=== PATIENT | female | born 1985 | race Caucasian/White ===

== ENCOUNTER 2016-09-06 10:15 | Outpatient (RCR) | payer OTHER ==
[~2016-09-06 10:15] MED LIST: /ONDA4TA PO; /PANT40TA PO; ATIV2TAB PO; BACIOIN5 TOP; BACITAB3 PO; BACT800T5 PO; BENT10CA PO; CEFD1CAP8 PO; CIPR500T89 PO; CLEO300C2 PO; CLOT7CR PV; CONC54TA2 PO; DOXY150C PO; EFFE150C PO; EFFE75CA75 PO; EFFEXOR PO; EFFEXOR XR PO; FOLI1TAB2 PO; IMODIUM PO; LACTSOL16 PO; LITH300C PO; LITHIUM CARBONATE PO; MACR100C3 PO; METH10CO PO; MULTCAP PO; NEUR100C PO; NEUR300C PO; NICO21DI4; NO HISTORICAL MEDS; NO HOME MEDICATIONS; OXYC30TA4 PO; PERC5TAB6 PO; PERCOCET PO; PROP10TA8 PO; ROBA500T PO; TEGR200T PO; TRAZ150T PO; TRAZ150T14 PO; TRAZ50TA4 PO; TYLE167L PO; TYLE325T5 PO; TYLE650T30 PO; VENL37TA PO; VIST50CA PO; VITA100T60 PO; lithium PO; no home meds; prenatal vitamin PO
== END 2016-09-12 ==
LOC: M OT 10:15
PROVIDERS: ATTEND Psychiatry & Neurology Neurology
DX: Z51.89 Encounter for other specified aftercare (principal); G56.03 Carpal tunnel syndrome, bilateral upper limbs

== ENCOUNTER 2016-10-05 10:00 | Outpatient (RCR) | payer OTHER | END 2016-10-10 | LOC: M OT 10:00 | PROVIDERS: ATTEND Psychiatry & Neurology Neurology | DX: Z51.89 Encounter for other specified aftercare (principal); G56.03 Carpal tunnel syndrome, bilateral upper limbs ==

== ENCOUNTER 2016-11-02 11:25 | Outpatient (RCR) | payer OTHER | END 2016-11-10 | LOC: M OT 11:25 | PROVIDERS: ATTEND Psychiatry & Neurology Neurology | DX: Z51.89 Encounter for other specified aftercare (principal); G56.03 Carpal tunnel syndrome, bilateral upper limbs ==

== ENCOUNTER → 2017-01-01 | Outpatient (CLI) | payer MEDICAID, OTHER ==
[2017-01-01 15:08] LABS: BASO % 0.3 % (0.0-1.0); EOS # 0.1 K/mm3 (0.0-0.50); EOS % 1.5 % (0.0-3.0); LARGE UNSTAINED CELL # 0.1 K/mm3 (0.0-0.4); LARGE UNSTAINED CELL % 1.6 % (0.0-4.0); LYMPH # 1.7 K/mm3 (1.5-4.5); LYMPH % 34.4 % (24.0-44.0); MEAN CORPUSCULAR HEMOGLOBIN 30.7 pg (27.0-33.0); MEAN CORPUSCULAR HGB CONC 34.4 g/dl (32.0-36.5); MEAN CORPUSCULAR VOLUME 89.3 fl (80.0-96.0); MONO # 0.2 K/mm3 (0.0-0.8); MONO % 4.6 % (0.0-5.0); NEUTROPHILS # 2.9 K/mm3 (1.8-7.7); NEUTROPHILS % 57.5 % (36.0-66.0); PLATELET COUNT, AUTOMATED 170 k/mm3 (150-450)
[2017-01-01 15:09] LABS: ALBUMIN 3.9 GM/DL (3.2-5.2); ALBUMIN/GLOBULIN RATIO 1.08 (1.00-1.93); ALKALINE PHOSPHATASE 72 U/L (45-117); ALT/SGPT 43 U/L (12-78); ANION GAP 9 MEQ/L (8-16); AST/SGOT 38 U/L (15-37); BILIRUBIN,TOTAL 0.3 MG/DL (0.2-1.0); BLOOD UREA NITROGEN 18 MG/DL (7-18); CALCIUM LEVEL 8.4 MG/DL (8.5-10.1); CARBON DIOXIDE LEVEL 27 MEQ/L (21-32); CHLORIDE LEVEL 102 MEQ/L (98-107); CREATININE FOR GFR 1.01 MG/DL (0.55-1.02); GLOMERULAR FILTRATION RATE > 60.0 (>60); GLUCOSE, FASTING 109 MG/DL (70-105); POTASSIUM SERUM 4.1 MEQ/L (3.5-5.1); SODIUM LEVEL 138 MEQ/L (136-145); TOTAL PROTEIN 7.5 GM/DL (6.4-8.2)
== END ==
LOC: M LAB 13:13
PROVIDERS: ATTEND Nurse Practitioner Family
DX: Z00.00 Encounter for general adult medical examination without abnormal findings (principal)

== ENCOUNTER → 2017-12-26 | Outpatient (CLI) | payer MEDICAID | LOC: M OUTALCOH 09:05 | DX: F10.20 Alcohol dependence, uncomplicated (principal); F11.20 Opioid dependence, uncomplicated ==

== ENCOUNTER → 2018-01-02 | Outpatient (REF) | payer MEDICAID ==
[2018-01-10 10:13] LABS: AMPHETAMINE SCREEN, URINE Negative ng/mL (Cutoff=1000); BARBITURATES SCREEN, URINE Negative ng/mL (Cutoff=200); BENZODIAZEPINES, URINE SCREEN Negative ng/mL (Cutoff=200); CANNABINOID SCREEN, URINE Negative ng/mL (Cutoff=20); COCAINE SCREEN, URINE Negative ng/mL (Cutoff=300); CREATININE, URINE 180.2 mg/dL (20.0-300.0); FENTANYL URINE SCREEN Negative pg/mL (Cutoff=2000); METHADONE, URINE SCREEN Negative ng/mL (Cutoff=300); NALOXONE RESULT Positive (.); OPIATE SCREEN, URINE Negative ng/mL (Cutoff=300); OXYCODONE, SCREEN, URINE Negative ng/mL (Cutoff=100); PCP SCREEN, URINE Negative ng/mL (Cutoff=25); URINE BUPRENORPHINE Positive (.); URINE BUPRENORPHINE Positive (Cutoff=10); URINE BUPRENORPHINE See Final Results ng/mL (Cutoff=10); URINE BUPRENORPHINE CONFIRM 682 ng/mL (Cutoff=10); URINE NORBUPRENORPHINE Positive (.); URINE NORBUPRENORPHINE CONFIRM >1000 ng/mL (Cutoff=10)
== END ==
LOC: M LAB REF 09:12
DX: F11.21 Opioid dependence, in remission (principal)

== ENCOUNTER 2018-01-04 13:11 | Outpatient (RCR) | payer MEDICAID | END 2018-01-10 | LOC: M OUTALCOH 01-08 10:00 | DX: F11.20 Opioid dependence, uncomplicated (principal) ==

== ENCOUNTER → 2018-01-09 | Outpatient (REF) | payer MEDICAID ==
[2018-01-17 10:16] LABS: AMPHETAMINE SCREEN, URINE Negative ng/mL (Cutoff=1000); BARBITURATES SCREEN, URINE Negative ng/mL (Cutoff=200); BENZODIAZEPINES, URINE SCREEN Negative ng/mL (Cutoff=200); CANNABINOID SCREEN, URINE Negative ng/mL (Cutoff=20); COCAINE SCREEN, URINE Negative ng/mL (Cutoff=300); CREATININE, URINE 112.1 mg/dL (20.0-300.0); CREATININE, URINE 196.7 mg/dL (20.0-300.0); FENTANYL URINE SCREEN Negative pg/mL (Cutoff=2000); METHADONE, URINE SCREEN Negative ng/mL (Cutoff=300); NALOXONE RESULT Positive (.); OPIATE SCREEN, URINE Negative ng/mL (Cutoff=300); OXYCODONE, SCREEN, URINE Negative ng/mL (Cutoff=100); PCP SCREEN, URINE Negative ng/mL (Cutoff=25); SPECIFIC GRAVITY, URINE 1.017 (.); SPECIFIC GRAVITY, URINE 1.026 (.); URINE BUPRENORPHINE Positive (.); URINE BUPRENORPHINE Positive (Cutoff=10); URINE BUPRENORPHINE See Final Results ng/mL (Cutoff=10); URINE BUPRENORPHINE CONFIRM 168 ng/mL (Cutoff=10); URINE BUPRENORPHINE CONFIRM 914 ng/mL (Cutoff=10); URINE NORBUPRENORPHINE Positive (.); URINE NORBUPRENORPHINE CONFIRM 1962 ng/mL (Cutoff=10); URINE NORBUPRENORPHINE CONFIRM 80 ng/mL (Cutoff=10); pH, URINE 5.8 (4.5-8.9)
== END ==
LOC: M LAB REF 07:25
DX: F11.21 Opioid dependence, in remission (principal)

== ENCOUNTER 2018-01-11 13:44 | Outpatient (RCR) | payer MEDICAID | END 2018-02-09 | LOC: M OUTALCOH 01-14 14:00 | DX: F11.20 Opioid dependence, uncomplicated (principal) ==

== ENCOUNTER 2018-02-15 11:45 | Outpatient (RCR) | payer MEDICAID | END 2018-03-12 | LOC: M OUTALCOH 11:45 | DX: F11.20 Opioid dependence, uncomplicated (principal) ==

== ENCOUNTER → 2018-02-18 | Outpatient (REF) | payer MEDICAID ==
[2018-02-21 14:44] LABS: HPV HYBRID CAPTURE II Negative (Negative)
== END ==
LOC: M LAB REF 13:54
DX: Z01.419 Encounter for gynecological examination (general) (routine) without abnormal findings (principal); Z11.51 Encounter for screening for human papillomavirus (HPV)
CPT/HCPCS: 88142

== ENCOUNTER → 2018-02-18 | Outpatient (REF) | payer MEDICAID ==
[2018-02-18 15:35] LABS: CHLAMYDIA DNA AMPLIFICATION NEGATIVE (NEGATIVE); GC DNA AMPLIFICATION NEGATIVE (NEGATIVE)
== END ==
LOC: M LAB REF 13:42
DX: Z11.3 Encounter for screening for infections with a predominantly sexual mode of transmission (principal)
CPT/HCPCS: 87591

== ENCOUNTER → 2018-04-18 | Outpatient (REF) | payer MEDICAID | LOC: M LAB REF 16:37 | DX: R30.0 Dysuria (principal) ==

== ENCOUNTER 2018-04-19 14:48 | Outpatient (RCR) | payer MEDICAID | END 2018-05-12 | LOC: M OUTALCOH 14:48 | DX: F11.20 Opioid dependence, uncomplicated (principal) ==

== ENCOUNTER 2018-05-16 14:30 | Outpatient (RCR) | payer MEDICAID | END 2018-06-12 | LOC: M OUTALCOH 05-30 15:00 | DX: F11.20 Opioid dependence, uncomplicated (principal) ==

== ENCOUNTER 2018-06-13 16:33 | Outpatient (RCR) | payer MEDICAID | END 2018-07-12 | LOC: M OUTALCOH 16:33 | DX: F11.20 Opioid dependence, uncomplicated (principal) ==

== ENCOUNTER → 2018-08-14 | Outpatient (REF) | payer MEDICAID ==
[~2018-08-14] MED LIST changes: +BACITAB PO; -BACITAB3 PO; -EFFE150C PO; +EFFE150C2 PO; +EFFE75CA2 PO; -EFFE75CA75 PO; +FOLI1TAB11 PO; -FOLI1TAB2 PO; -MACR100C3 PO; +MACR100C43 PO; +PERC5TAB12 PO; -PERC5TAB6 PO; +TRAZ-160 PO; -TRAZ150T14 PO; +TRAZ1TAB14 PO; -TRAZ50TA4 PO
== END ==
LOC: M LAB REF 18:37
PROVIDERS: ATTEND Family Medicine Addiction Medicine
DX: R30.0 Dysuria (principal)

== ENCOUNTER 2018-09-28 20:40 | Emergency (ER) | payer MEDICAID, OTHER ==
[~2018-09-28] VITALS: Ht 157.5 cm; Wt 81.8 kg
[2018-09-28] MEDS ORDERED: TETANUS/DIPHTHERIA TOX ADSORB ADULT 0.5ML SYR/VIAL (90714) IM ONE (22:30)
--- NOTE | 2018-09-28 23:08 | REPVR ---
EXAM: CT Head Without Contrast EXAM DATE/TIME: 09/28/2018 10:48 PM CLINICAL HISTORY: 32 years old, female; Injury or trauma; Fall; Initial encounter; Concussion / head injury; Consciousness not specified TECHNIQUE: Axial computed tomography images of the head/brain without contrast. All CT scans at this facility use at least one of these dose optimization techniques: automated exposure control; mA and/or kV adjustment per patient size (includes targeted exams where dose is matched to clinical indication); or iterative reconstruction. COMPARISON: No relevant prior studies available. FINDINGS: Brain: There is no evidence of intracranial bleed. The mccollum-white differentiation appears preserved. Ventricles: Normal appearing ventricles. Bones/joints: Unremarkable. No acute fracture. Sinuses: Clear paranasal sinuses. Mastoid air cells: Clear mastoid air cells. Soft tissues: Unremarkable. IMPRESSION: 1. No evidence of bleed. 2. No evidence of fracture. Electronically signed by: Jaden Hernandez On 09/28/2018 23:08:35 PM
[2018-09-28] MEDS ORDERED: DERMABOND TOPICAL SKIN ADHESIVE TOP ONE (23:15)
--- NOTE | 2018-09-28 23:16 | REPVR ---
EXAM: CT Maxillofacial Without Contrast EXAM DATE/TIME: 09/28/2018 10:48 PM CLINICAL HISTORY: 32 years old, female; Injury or trauma; Fall; Initial encounter; Concussion /head injury; Loss of consciousness not known TECHNIQUE: Axial computed tomography images of the face without intravenous contrast. All CT scans at this facility use at least one of these dose optimization techniques: automated exposure control; mA and/or kV adjustment per patient size (includes targeted exams where dose is matched to clinical indication); or iterative reconstruction. Coronal and sagittal reformatted images were created and reviewed. COMPARISON: No relevant prior studies available. FINDINGS: Orbits: No acute intraorbital abnormality. Globes are unremarkable. Sinuses: Clear paranasal sinuses. There is a 2 CM masslike area posterior to the right piriform sinus. I would recommend a CT scan with bolus IV contrast for further evaluation of this. The other option would be MRI. There are small lymph nodes right left-sided neck. Bones/joints: The maxilla appears intact. There is no evidence of fracture. The mandible appears intact Submandibular/Parotid glands: The submandibular glands appear symmetric. The parotid glands appear symmetric. IMPRESSION: 1. No evidence of fracture. 2. 2 cm mass posterior to the right piriform sinus. To exclude the possibility of this being pathology or a vascular mass recommend CT scan with contrast or MRI with contrast. Electronically signed by: Jaden Hernandez On 09/28/2018 23:16:02 PM
[2018-09-29 02:24] VITALS: BP 119/71
--- NOTE | 2018-09-29 12:05 | REP ---
LEFT FOOT AP/LATERAL: 09/28/2018. CLINICAL HISTORY: Trauma, stepped on glass. Evaluate for foreign body. FINDINGS: The two views show evidence of prior osteotomy, bunionectomy of the 1st metatarsal with two screws transfixing the healed osteotomy site. There is also a single screw in the distal head of the 2nd metatarsal. The other metatarsals, tarsal bones, phalanges, and the hindfoot are without fracture or focal lesion. I do not see a radiopaque foreign body on the lateral view within the plantar soft tissues. IMPRESSION: 1. Status post osteotomy and bunionectomy of the distal end of the 1st and 2nd metatarsal with no fracture, avulsion, erosion, or acute bony finding. 2. No radiopaque foreign body identified. Please recall that some types of glass may be radiolucent. Electronically Signed by Taran Allen MD 09/29/2018 01:44 P
--- NOTE | 2018-10-07 19:04 | ED PDOC ---
Post-Departure Follow-Up dr torres faxed formal report of ct max fac for follow up Jerri Euceda MD Oct 07, 2018 19:04
== END 2018-09-29 02:51 | disposition home or self-care (01) ==
LOC: M ED 20:40
DX: S91.312A Laceration without foreign body, left foot, initial encounter (principal); S00.83XA Contusion of other part of head, initial encounter; Y04.0XXA Assault by unarmed brawl or fight, initial encounter; Y07.411 Sister, perpetrator of maltreatment and neglect; Y92.018 Other place in single-family (private) house as the place of occurrence of the external cause; R93.0 Abnormal findings on diagnostic imaging of skull and head, not elsewhere classified; Z79.899 Other long term (current) drug therapy; Z79.891 Long term (current) use of opiate analgesic; Z88.0 Allergy status to penicillin; Z88.1 Allergy status to other antibiotic agents; Z88.8 Allergy status to other drugs, medicaments and biological substances; F17.210 Nicotine dependence, cigarettes, uncomplicated

== ENCOUNTER → 2018-10-07 | Outpatient (CLI) | payer OTHER ==
[2018-10-07 15:40] LABS: HEMATOCRIT 37.2 % (36.0-47.0); HEMOGLOBIN 12.4 g/dl (12.0-15.5); MEAN CORPUSCULAR HEMOGLOBIN 30.5 pg (27.0-33.0); MEAN CORPUSCULAR HGB CONC 33.3 g/dl (32.0-36.5); MEAN CORPUSCULAR VOLUME 91.4 fl (80.0-96.0); PLATELET COUNT, AUTOMATED 186 10^3/uL (150-450); RED BLOOD COUNT 4.07 10^6/uL (4.00-5.40); WHITE BLOOD COUNT 6.7 10^3/uL (4.0-10.0)
[2018-10-07 16:01] LABS: ALBUMIN 3.8 GM/DL (3.2-5.2); ALT/SGPT 86 U/L (12-78); BILIRUBIN,TOTAL 0.3 MG/DL (0.2-1.0); BLOOD UREA NITROGEN 11 MG/DL (7-18); CARBON DIOXIDE LEVEL 30 MEQ/L (21-32); CHLORIDE LEVEL 104 MEQ/L (98-107); GLOMERULAR FILTRATION RATE > 60.0 (>60); GLUCOSE, FASTING 115 MG/DL (70-100); SODIUM LEVEL 138 MEQ/L (136-145); TOTAL PROTEIN 6.8 GM/DL (6.4-8.2)
[2018-10-07 16:20] LABS: HEPATITIS B SURFACE ANTIGEN NEGATIVE (NEGATIVE)
[2018-10-07 16:49] LABS: HIV 1&2 SCREEN CENTAUR NEGATIVE (NEGATIVE)
[2018-10-07 17:01] LABS: HEPATITIS C VIRUS ABY INDEX > 11.0 INDEX (<0.8)
[2018-10-07 17:27] LABS: CHLAMYDIA DNA AMPLIFICATION NEGATIVE (NEGATIVE); GC DNA AMPLIFICATION NEGATIVE (NEGATIVE)
[2018-10-08 10:12] LABS: URINE PREG TEST NEGATIVE (NEGATIVE)
== END ==
LOC: M LAB 14:25
PROVIDERS: ATTEND Family Medicine
DX: F11.20 Opioid dependence, uncomplicated (principal)

== ENCOUNTER → 2018-10-31 | Outpatient (CLI) | payer OTHER ==
--- NOTE | 2018-11-02 00:05 | ECGEPIP ---
Stationary ECG Study [facility] Test Date: 2018-10-31 Pat Name: FLORENTIN YEBOAH Department: Room: - Gender: F Net Wpf Developer: ROSELINE : 1985 Requested By: Hesham Raymundo Order Number: [id number] Reading MD: Constantine Stevenson Measurements Intervals [place] Rate: 58 P: 71 MA: 171 QRS: 76 QRSD: 88 T: 67 QT: 384 QTc: 379 Interpretive Statements SINUS BRADYCARDIA WITH SINUS ARRHYTHMIA COMPARED TO THE LAST 2 TRACINGS DONE IN 2013, NO SIGNIFICANT CHANGES Electronically Signed On 11-02-2018 0:05:00 EDT by Constantine Stevenson
== END ==
LOC: M EKG 15:17
PROVIDERS: ATTEND Family Medicine
DX: F11.20 Opioid dependence, uncomplicated (principal)

== ENCOUNTER 2019-04-12 16:20 | Emergency (ER) | payer OTHER ==
[~2019-04-12] VITALS: Ht 157.5 cm; Wt 79.1 kg
[~2019-04-12 16:20] MED LIST changes: -/ONDA4TA PO; -/PANT40TA PO; +ONDA-1 PO; +OXYC1TAB23 PO; -PERCOCET PO; +PROT1TAB2 PO; -TRAZ-160 PO; +TRAZ-252 PO
[2019-04-12 16:21] VITALS: BP 139/74
[2019-04-12] MEDS ORDERED: VENL150C43 (16:26)
[2019-04-12] MEDS ORDERED: SUBO8MIS (16:26)
[2019-04-12] MEDS ORDERED: TRAZ-163 (16:26)
[2019-04-12] MEDS ORDERED: PRAZ1CAP (16:26)
[2019-04-12] MEDS ORDERED: PRAZ5CAP (16:26)
[2019-04-12] MEDS ORDERED: VENL75CA47 (16:26)
[2019-04-12] MEDS ORDERED: GABA-843 (16:26)
--- NOTE | 2019-04-12 17:36 | REP ---
Clinical: Cough and fever. Technique: PA and lateral. Findings: Mediastinum and cardiac silhouette normal. Lung guardado clear. No focal consolidation, effusion, or pneumothorax. Skeletal structures intact. Impression: No focal consolidation. Electronically Signed by Jeff Serrano MD 04/12/2019 05:27 P
[2019-04-12] MEDS ORDERED: VENTAER INH (17:59)
[2019-04-12] MEDS ORDERED: MUCI600T31 PO (17:59)
[2019-04-12] MEDS ORDERED: VALT1TAB PO (17:59)
[2019-04-12] MEDS ORDERED: BENZ200C70 PO (17:59)
== END 2019-04-12 18:15 | disposition home or self-care (01) ==
LOC: M ED 16:20
DX: J20.9 Acute bronchitis, unspecified (principal); B00.1 Herpesviral vesicular dermatitis; I10 Essential (primary) hypertension; K21.9 Gastro-esophageal reflux disease without esophagitis; F17.200 Nicotine dependence, unspecified, uncomplicated; Z88.0 Allergy status to penicillin; Z88.6 Allergy status to analgesic agent; Z88.1 Allergy status to other antibiotic agents; Z79.899 Other long term (current) drug therapy

== ENCOUNTER 2019-05-19 13:56 | Inpatient (IN) | payer OTHER ==
[~2019-05-19] VITALS: Ht 154.9 cm; Wt 80.1 kg
[~2019-05-19 13:56] MED LIST changes: +BENZ200C70 PO; +GABA-843 PO; +MUCI600T31 PO; +PRAZ1CAP PO; +PRAZ5CAP PO; +SUBO8MIS SL; +TRAZ-163 PO; +VALT1TAB PO; +VENL150C43; +VENL75CA47 PO; +VENTAER INH
[2019-05-19 14:59] LABS: BASO % 0.5 % (0.0-1.0); EOS # 0.1 10^3/uL (0.0-0.5); EOS % 1.8 % (0.0-3.0); HEMATOCRIT 36.8 % (36.0-47.0); HEMOGLOBIN 12.2 g/dl (12.0-15.5); LYMPH % 35.7 % (24.0-44.0); MEAN CORPUSCULAR HEMOGLOBIN 30.7 pg (27.0-33.0); MEAN CORPUSCULAR HGB CONC 33.2 g/dl (32.0-36.5); MEAN CORPUSCULAR VOLUME 92.7 fl (80.0-96.0); MONO # 0.5 10^3/uL (0.0-0.8); MONO % 8.5 % (0.0-5.0); NEUTROPHILS # 2.9 10^3/uL (1.5-8.5); NEUTROPHILS % 53.1 % (36.0-66.0); PLATELET COUNT, AUTOMATED 156 10^3/uL (150-450); RED BLOOD COUNT 3.97 10^6/uL (4.00-5.40); WHITE BLOOD COUNT 5.5 10^3/uL (4.0-10.0)
[2019-05-19] MEDS ORDERED: NS 1,000 ML IV ONE ×2 (15:00→18:30)
[2019-05-19 15:24] LABS: OSMOLALITY SERUM 287 MOSM/KG (275-295)
[2019-05-19 15:26] LABS: HCG, SERUM QUALITATIVE NEGATIVE (NEGATIVE)
[2019-05-19 15:57] LABS: ACETAMINOPHEN LEVEL < 2.0 UG/ML (10.0-30.0); ALBUMIN 3.6 GM/DL (3.2-5.2); ALT/SGPT 194 U/L (12-78); BILIRUBIN,DIRECT 0.2 MG/DL (0.0-0.2); BILIRUBIN,TOTAL 0.6 MG/DL (0.2-1.0); BLOOD UREA NITROGEN 8 MG/DL (7-18); CALCIUM LEVEL 8.4 MG/DL (8.5-10.1); CARBON DIOXIDE LEVEL 29 MEQ/L (21-32); CHLORIDE LEVEL 104 MEQ/L (98-107); CPK CREATINE PHOSPHOKINASE 1297 U/L (26-192); CREATININE FOR GFR 0.86 MG/DL (0.55-1.30); ETHYL ALCOHOL (ETHANOL) < 0.003 % (0.000-0.010); GLOMERULAR FILTRATION RATE > 60.0 (>60); GLUCOSE, FASTING 83 MG/DL (70-100); POTASSIUM SERUM 3.8 MEQ/L (3.5-5.1); SALICYLATE LEVEL 5.1 MG/DL (5.0-30.0); SODIUM LEVEL 139 MEQ/L (136-145); TOTAL PROTEIN 6.7 GM/DL (6.4-8.2)
[2019-05-19 16:59] LABS: AMPHETAMINES LEVEL URINE NEGATIVE (NEGATIVE); BARBITURATES URINE NEGATIVE (NEGATIVE); BENZODIAZEPINES URINE POSITIVE (NEGATIVE); CANNABINOIDS URINE POSITIVE (NEGATIVE); COCAINE METABOLITE URINE POSITIVE (NEGATIVE); METHADONE URINE NEGATIVE (NEGATIVE); OPIATES URINE NEGATIVE (NEGATIVE); PHENCYCLIDINE URINE NEGATIVE (NEGATIVE)
[2019-05-19 19:57] LABS: CK-MB VALUE MASS 10.3 NG/ML (<3.6); MB/CK RELATIVE INDEX 0.79 (< OR =4); TROPONIN I < 0.02 NG/ML (< 0.10)
--- NOTE | 2019-05-19 20:49 | HPEPDOC ---
[facility] Medical History & Physical Date of Admission May 19, 2019 Date of Service: May 19, 2019 Attending Physician: FREDDIE ROMEO MD History and Physical TIME OF SERVICE: 9:21 PM CHIEF COMPLAINT: Altered mental status HISTORY OF PRESENT ILLNESS: The patient was to lethargic to answer any questions the history was obtained from the ED attending. This is a 33-year-old female who was brought into the hospital after overdosing on several medications; it is unclear whether the overdose was intentional. Her UDS was positive for benzos, cocaine and THC; her LFTs and CK were elevated, the troponin was normal limits and her EKG was unremarkable. She received IV fluids. The ED attending requested admission for observation pending resolution of her altered mental status. On my evaluation, she was temporarily arousable with noxious stimuli and nodded her head no when asked if she had any pain. REVIEW OF SYSTEMS: 12 point review of systems negative except as listed in HPI PAST MEDICAL/ SURGICAL HISTORY: Bipolar disorder. Hepatitis C His admission for drug overdose SOCIAL HISTORY: Polysubstance abuse on Suboxone has previously attended rehabilitation Alcohol abuse Has 3 children FAMILY HISTORY: Multiple family members have mental illness and substance abuse ALLERGIES: Please see below. HOME MEDICATIONS: Please see below. PHYSICAL EXAMINATION: VITAL SIGNS: Please see below. GENERAL APPEARANCE: Well-nourished, does not appear toxic HEENT: Normocephalic, atraumatic, mucous membranes dry, pupillary reaction to light, sluggish CARDIOVASCULAR: Sinus bradycardia with a heart rate ranging from the 60s to 40s LUNGS: She is protecting her airway. Her lungs are clear to auscultation bila terally on room air ABDOMEN: Bowel sounds are hypoactive, she grimaces with palpation of the abdomen MUSCULOSKELETAL: Unable to assess due to limited patient cooperation NEUROLOGICAL: Unable to assess due to limited patient cooperation PSYCHIATRIC: Sedated, Emmanuel agitation sedation score -4 LABORATORY DATA: See below. ASSESSMENT: Ms. Shelton is a 33-year-old female with a past medical history disorder, and hepatitis C, likely secondary to polysubstance abuse who will be admitted for management of altered mental status, transaminitis, elevated CPK. PLAN: 1. Altered mental status likely due to drug overdose. UDS for benzos, cocaine, and THC. She also takes venlafaxine, trazodone and gabapentin Plan: Admit to PCU/ seizure precautions/frequent neuro checks/ c/w 1:1 sitter / continuous pulse oximetry / hold home meds 2. Bradycardia. Likely due to polysubstance intoxication. Troponin unremarkable Plan: Telemetry/ will ask nursing staff to keep subcutaneous pacers close by / atropine 0.5 mg IV PRN for HR <30 4. Hepatic pattern of transaminitis. Likely due to polysubstance abuse & Hep C Plan: Trend LFTs & f/u coags / follow-up liver ultrasound / patient is unlikely candidate for hep C treatment because of polysubstance abuse 5. Elevated CK. Likely due to drug abuse. Creatinine is within normal limits. Plan: IV fluids/trend CK and BMP 6. Polysubstance abuse. Serum alcohol is negative. Per chart review, she does have a history of alcohol abuse. Plan: Telemetry/follow seizure precautions/Ativan per [facility] protocol/thiamine, folate and multivitamins/IV fluids 7. Bipolar disorder. Plan: Hold home meds/daytime team can consult psychiatry once MENTAL status has resolved 8. Obesity BMI 31.1 Plan: can f/u w PCP for instructor ballroom dancing consult / recommend cardiovascular exercise for 40 min 4-5 days a week DVT prophylaxis with SCDs. Disposition pending clinical course Vital Signs Vital Signs Date Time Temp Pulse Resp B/P (MAP) Pulse Ox O2 Delivery O2 Flow Rate FiO2 05/19/19 19:08 64 20 102/65 (77) 95 Room Air 05/19/19 15:54 97.6 Laboratory Data Labs 24H Laboratory Tests 2 05/19/19 14:15: Immature Granulocyte % (Auto) 0.4, White Blood Count 5.5, Red Blood Count 3.97L, Hemoglobin 12.2, Hematocrit 36.8, Mean Corpuscular Volume 92.7, Mean Corpuscular Hemoglobin 30.7, Mean Corpuscular Hemoglobin Concent 33.2, Red Cell Distribution Width 13.8, Platelet Count 156, Neutrophils (%) (Auto) 53.1, Lymphocytes (%) (Auto) 35.7, Monocytes (%) (Auto) 8.5H, Eosinophils (%) (Auto) 1.8, Basophils (%) (Auto) 0.5, Neutrophils # (Auto) 2.9, Lymphocytes # (Auto) 2.0, Monocytes # (Auto) 0.5, Eosinophils # (Auto) 0.1, Basophils # (Auto) 0.0, Nucleated Red Blood Cells % (auto) 0.0, Anion Gap 6L, Glomerular Filtration Rate > 60.0, Osmolality 287, Calcium Level 8.4L, Aspartate Amino Transf (AST/SGOT) 228H, Alanine Aminotransferase (ALT/SGPT) 194H, Alkaline Phosphatase 149H, Total Bilirubin 0.6, Direct Bilirubin 0.2, Total Creatine Kinase 1297H, Creatine Kinase MB 10.3H, Creatine Kinase MB Relative Index 0.79, Troponin I < 0.02, Total Protein 6.7, Albumin 3.6, Albumin/Globulin Ratio 1.16, Thyroid Stimulating Hormone (TSH) 1.440, Human Chorionic Gonadotropin, Qual NEGATIVE, Salicylates Level 5.1, Acetaminophen Level < 2.0L, Ethyl Alcohol Level < 0.003 05/19/19 16:24: Urine Amphetamines Screen NEGATIVE, Urine Benzodiazepines Screen POSITIVEH, Urine Opiates Screen NEGATIVE, Urine Methadone Screen NEGATIVE, Urine Barbiturates Screen NEGATIVE, Urine Phencyclidine Screen NEGATIVE, Urine Cocaine Metabolite Screen POSITIVEH, Urine Cannabinoids Screen POSITIVEH CBC/BMP Laboratory Tests 05/19/19 14:15 Red Blood Count 3.97 L, Mean Corpuscular Volume 92.7, Mean Corpuscular Hemoglobin 30.7, Mean Corpuscular Hemoglobin Concent 33.2, Red Cell Distribution Width 13.8, Neutrophils (%) (Auto) 53.1, Lymphocytes (%) (Auto) 35.7, Monocytes (%) (Auto) 8.5 H, Eosinophils (%) (Auto) 1.8, Basophils (%) (Auto) 0.5, Neutrophils # (Auto) 2.9, Lymphocytes # (Auto) 2.0, Monocytes # (Auto) 0.5, Eosinophils # (Auto) 0.1, Basophils # (Auto) 0.0 Home Medications Scheduled Buprenorphine HCl/Naloxone HCl (Suboxone 8 mg-2 mg Sl Film) 1 Each Film, 1 FILM SL DAILY Gabapentin (Gabapentin) 300 Mg Capsule, 600 MG PO TID Prazosin Hcl (Prazosin HCl) 1 Mg Capsule, 1 MG PO QHS 6MG TOTAL Prazosin Hcl (Prazosin HCl) 5 Mg Capsule, 5 MG PO QHS Venlafaxine HCl (Venlafaxine HCl ER) 75 Mg Cap.er.24h, 225 MG PO DAILY Scheduled PRN Albuterol Sulfate (Proair Hfa) 8.5 Gm Hfa.aer.ad, 2 PUFF INH Q4H PRN for SOB/WHEEZING Trazodone HCl (Trazodone HCl) 100 Mg Tablet, 100 MG PO QHS PRN for SLEEP Allergies Coded Allergies: Penicillins (Verified Allergy, Intermediate, 04/12/19) vancomycin (Verified Allergy, Unknown, HIVES-INJECTION SITE REACTION, 04/12/19) ibuprofen (Verified Adverse Reaction, Mild, UPSET STOMACH, 04/12/19) A-FIB/CHADSVASC A-FIB History Current/History of A-Fib/PAF?: No Current PO Anticoag Therapy: No FREDDIE ROMEO MD May 19, 2019 20:49
[2019-05-19] MEDS ORDERED: PROAAER10 INH (21:13)
[2019-05-19] MEDS ORDERED: ATROPINE SULF 1MG/10ML SYRINGE (J0461) IV PRN (22:15)
[2019-05-19] MEDS ORDERED: LORazepam 2 MG TAB PO PRN (22:15)
--- NOTE | 2019-05-19 22:37 | REPVR ---
PROCEDURE INFORMATION: Exam: US Abdomen Limited, Right Upper Quadrant Exam date and time: 05/19/2019 10:03 PM Clinical history: 33 years old, female; Abnormal findings; Abnormal lab test; Abnormal function test of other organs/systems; Prior surgery; Surgery date: 6+ months; Surgery type: Cholecystectomy; Additional info: Transaminitis TECHNIQUE: Imaging protocol: Real-time ultrasound of the abdomen with image documentation. Examination was focused on the right upper quadrant. COMPARISON: RENAL US 04/25/2015 11:57 PM FINDINGS: Liver: Normal. No masses. Gallbladder: Cholecystectomy. Common bile duct: Mild common biliary duct dilatation, measuring 10 mm. Pancreas: Poorly visualized. Right kidney: Unremarkable 11 cm right kidney. IMPRESSION: 1. Cholecystectomy. 2. Mildly dilatated common biliary duct measuring 10 mm. Electronically signed by: Deuce Mayen On 05/19/2019 22:37:11 PM
[2019-05-19] MEDS: NS 1,000 ML IV SCH (23:06)
[2019-05-19] MEDS: THIAMINE 100 MG TAB PO SCH (23:41)
[2019-05-20] VITALS (15 sets, daily range): BP systolic 103–140; BP diastolic 53–85; O2SAT 93–99
--- NOTE | 2019-05-20 00:51 | ECGEPIP ---
[facility] - ED Test Date: 2019-05-19 Pat Name: FLORENTIN YEBOAH Department: Room: - Gender: Female Reject Opener And Filler: ANIYAH : 1985 Requested By: Janny Chapman Order Number: [id number] Reading MD: Deuce Roberts Measurements Intervals [place] Rate: 72 P: 64 NV: 171 QRS: 44 QRSD: 97 T: 40 QT: 380 QTc: 417 Interpretive Statements SINUS RHYTHM Similar to tracing done 10-31-18 Electronically Signed on 05-20-2019 0:51:13 EDT by Deuce Roberts
[2019-05-20] MEDS: NS 1,000 ML IV SCH ×3 (03:00→19:26)
[2019-05-20 05:37] LABS: HEMOGLOBIN 12.3 g/dl (12.0-15.5); MEAN CORPUSCULAR HEMOGLOBIN 30.6 pg (27.0-33.0); MEAN CORPUSCULAR HGB CONC 32.4 g/dl (32.0-36.5); MEAN CORPUSCULAR VOLUME 94.5 fl (80.0-96.0); PLATELET COUNT, AUTOMATED 159 10^3/uL (150-450); RED BLOOD COUNT 4.02 10^6/uL (4.00-5.40); WHITE BLOOD COUNT 4.5 10^3/uL (4.0-10.0)
[2019-05-20 05:47] LABS: ALBUMIN 2.9 GM/DL (3.2-5.2); ALT/SGPT 142 U/L (12-78); BILIRUBIN,TOTAL 1.2 MG/DL (0.2-1.0); BLOOD UREA NITROGEN 7 MG/DL (7-18); CALCIUM LEVEL 7.7 MG/DL (8.5-10.1); CARBON DIOXIDE LEVEL 30 MEQ/L (21-32); CHLORIDE LEVEL 112 MEQ/L (98-107); GLOMERULAR FILTRATION RATE > 60.0 (>60); GLUCOSE, FASTING 77 MG/DL (70-100); POTASSIUM SERUM 3.8 MEQ/L (3.5-5.1); SODIUM LEVEL 145 MEQ/L (136-145); TOTAL PROTEIN 6.2 GM/DL (6.4-8.2)
[2019-05-20 05:48] LABS: INR 1.07; PROTHROMBIN TIME 13.6 SECONDS (11.8-14.0)
--- NOTE | 2019-05-20 08:14 | IPNPDOC ---
Text Note Date of Service The patient was seen on 05/20/19. NOTE Subjective: Ms. Shelton was seen at bedside today (05/20) and reported no acute changes to her condition. She states that her overdose was accidental and that she has not overdosed previously (but she has hospital records of previous OD). She was unable to remember or did not want to state which medication she overdosed on. Upon asking about her current status she states "i'm alright" and is just very tired. She states she has been urinating without incident and has not yet had a bowel movement. She denies any suicidal ideation. She denies a history of alco hol use, chest pain, shortness of breath, pain or paresthesia. Per chart review, she does have a history of alcohol abuse. Objective: General: Pt is a obese female in no apparent distress. She was laying in her bed asleep upon entering. During exam she repeatedly fell asleep and required repeated prompting to get answers to questions. She did respond appropriately to questions. HEENT: Pupils respond to light and are equal. No scleral icterus noted. Poor ora l hygiene noted. Trachea midline. Lungs: Mild inspiratory wheezing noted in her upper left apical lobe. Vesicular breath sounds heard throughout remaining lung exam. Heart: Regular rhythm and normal rate noted. No murmurs, rubs, or knocks noted. No muffled heart sounds. Abdomen: Obese abdomen noted. No pain or tenderness to palpation noted. Normal abdominal sounds noted in all 4 quadrants. No organomegaly, bruits, or distension noted. No guarding or rebound tenderness. No Jaundice noted Extremities: Small excoriations and bruises noted in her LE B/L. No edema noted. No rashes, wounds, weeping sores noted. No significant muscle atrophy noted. Neuro: No focal deficits noted. Pt in stuperous state. She does respond to questions appropriately. She is alert and aware to person, and place but not to time. She stated she thought it was April. Imaging: - Liver Ultrasound: Impression: 1. Cholecystectomy. 2.Mildly dilatated common biliary duct measuring 10 mm. Assessment and plan: #Acute metabolic / toxic encephalopathy - likely 2/2 substance abuse and medication: Believed to be due to polysubstance abuse. Urinary Tox screen positive for cocaine, benzodiazepines, and marijuana. Patient continues to be s tuperous but does respond to questions appropriately. Pt denies hx of alcohol abuse but certified caregiver her known history of alcohol abuse will continue CIWA protocol. Continue 1 on 1 sitter. Will continue to provide supportive care and monitor for improvement. Will consult Psychiatry within this hospitalization #Bradycardia: Pt's heart rate stable at 55-60 bpm. Continue to have her on telemetry with atropine use indicated if HR <30. #Transaminitis: Likely related to pt's current Hep C infection and polysubstance abuse. AST and ALT has been improving and are now 130 and 142 respectively. Continue to trend LFTs and monitor for acute exacerbation. Patient is not a good candidate for Hep C treatment due to active illicit drug use. Will order hepatitis panel. #Elevated CK: CK was 1200 on admission and is now 600. CK relative index score is < 3 indicating a skeletal muscle etiology and troponin was negative. Continue patient on NS at 150 mL/hr. Will follow CK and test urine myoglobin to check for rhabdomyolysis which is unlikely given normal kidney function. #Hx of depression and OD attempts: Pt has a hx of previous OD attempts and of admission to [facility]. Will obtain psychology consult to screen for possible current depressive episode or SI. #DVT and Prophylaxis: Currently on TEDS and sequentials for DVT prophylaxis. VS,Fishbone, I+O VS, Fishbone, I+O Laboratory Tests 05/19/19 14:15 Red Blood Count 3.97 L, Mean Corpuscular Volume 92.7, Mean Corpuscular Hemoglobin 30.7, Mean Corpuscular Hemoglobin Concent 33.2, Red Cell Distribution Width 13.8, Neutrophils (%) (Auto) 53.1, Lymphocytes (%) (Auto) 35.7, Monocytes (%) (Auto) 8.5 H, Eosinophils (%) (Auto) 1.8, Basophils (%) (Auto) 0.5, Neutrophils # (Auto) 2.9, Lymphocytes # (Auto) 2.0, Monocytes # (Auto) 0.5, Eosinophils # (Auto) 0.1, Basophils # (Auto) 0.0 05/20/19 04:55 Red Blood Count 4.02, Mean Corpuscular Volume 94.5, Mean Corpuscular Hemoglobin 30.6, Mean Corpuscular Hemoglobin Concent 32.4, Red Cell Distribution Width 14.1, Calcium Level 7.7 L, Aspartate Amino Transf (AST/SGOT) 130 H, Alanine Aminotransferase (ALT/SGPT) 142 H, Alkaline Phosphatase 152 H, Total Bilirubin 1.2 #H, Total Protein 6.2 L, Albumin 2.9 L Vital Signs Date Time Temp Pulse Resp B/P (MAP) Pulse Ox O2 Delivery O2 Flow Rate FiO2 05/20/19 06:00 55 111/82 05/20/19 06:00 93 Room Air 05/20/19 04:00 97.1 16 I&O- Last 24 Hours up to 6 AM 05/20/19 05:59 Intake Total 1450 ml Balance 1450 ml GME ATTESTATION GME ATTESTATION My faculty preceptor for this patient encounter was physically present during the encounter and was fully available. All aspects of the patient interview, examination, medical decision making process, and medical care plan development were reviewed and approved by the faculty preceptor. The faculty preceptor is aware and concurs with the plan as stated in the body of this note and will attest to such by his/her cosignature. ATTENDING NOTE I, Germán Giron, have independently examined this patient and performed my own physical exam, as well as reviewed the documentation and edited where necessary. I have discussed in detail with the resident / student the findings and plan of treatment as documented by the resident / student and edited their note. I agree with their findings and treatment plan and have edited their documentation. I will continue to follow the patient during this hospital stay. JAYCEE CHAMPION OMS-3 May 20, 2019 08:14 GERMÁN GIRON MD May 20, 2019 10:51
[2019-05-20] MEDS: THIAMINE 100 MG TAB PO SCH ×2 (09:00→20:08)
[2019-05-20] MEDS: MULTIVITAMINS/MINERALS THERAP 1 TAB PO SCH (09:00)
[2019-05-20] MEDS: FOLIC ACID 1 MG TAB PO SCH (09:00)
[2019-05-20] MEDS ORDERED: ALBUTEROL 90 MCG/ACT 8GM HFA INHALER INH PRN (12:00)
[2019-05-20] MEDS: VENLAFAXINE **XR** 75MG CAPSULE PO SCH (12:15)
[2019-05-20] MEDS ORDERED: SUBO8MIS SL (12:59)
[2019-05-20] MEDS ORDERED: BUPR1SUB4 SL (12:59)
[2019-05-20] MEDS ORDERED: BUPRENORPHINE/NALOXONE 8-2MG SUBLINGUAL TABLET(SUBOXONE) SL SCH (13:00)
[2019-05-20] MEDS: BUPRENORPHINE/NALOXONE 2-0.5MG SUBLINGUAL TABLET(SUBOXONE) SL SCH (17:21)
[2019-05-20] MEDS: GABAPENTIN 300 MG CAP PO SCH ×2 (17:21→20:08)
[2019-05-20] MEDS: PRAZOSIN 1 MG CAP PO SCH ×2 (20:09→20:10)
[2019-05-21] VITALS (13 sets, daily range): BP systolic 98–146; BP diastolic 61–93; O2SAT 91–97
[2019-05-21] MEDS: NS 1,000 ML IV SCH ×3 (01:21→15:56)
[2019-05-21 08:24] LABS: HEMATOCRIT 35.5 % (36.0-47.0); HEMOGLOBIN 11.3 g/dl (12.0-15.5); MEAN CORPUSCULAR HEMOGLOBIN 30.1 pg (27.0-33.0); MEAN CORPUSCULAR HGB CONC 31.8 g/dl (32.0-36.5); MEAN CORPUSCULAR VOLUME 94.4 fl (80.0-96.0); PLATELET COUNT, AUTOMATED 128 10^3/uL (150-450); RED BLOOD COUNT 3.76 10^6/uL (4.00-5.40); WHITE BLOOD COUNT 4.1 10^3/uL (4.0-10.0)
[2019-05-21 08:34] LABS: INR 0.98; PROTHROMBIN TIME 12.7 SECONDS (11.8-14.0)
[2019-05-21] MEDS: BUPRENORPHINE/NALOXONE 2-0.5MG SUBLINGUAL TABLET(SUBOXONE) SL SCH (08:38)
[2019-05-21] MEDS: VENLAFAXINE **XR** 75MG CAPSULE PO SCH (08:38)
[2019-05-21] MEDS: THIAMINE 100 MG TAB PO SCH ×2 (08:39→20:09)
[2019-05-21] MEDS: GABAPENTIN 300 MG CAP PO SCH ×3 (08:39→20:09)
[2019-05-21] MEDS: MULTIVITAMINS/MINERALS THERAP 1 TAB PO SCH (08:39)
[2019-05-21] MEDS: BUPRENORPHINE/NALOXONE 8-2MG SUBLINGUAL TABLET(SUBOXONE) SL SCH (08:39)
[2019-05-21] MEDS: FOLIC ACID 1 MG TAB PO SCH (08:39)
[2019-05-21 08:52] LABS: ALBUMIN 2.8 GM/DL (3.2-5.2); ALT/SGPT 117 U/L (12-78); BILIRUBIN,TOTAL 1.1 MG/DL (0.2-1.0); BLOOD UREA NITROGEN 6 MG/DL (7-18); CALCIUM LEVEL 8.1 MG/DL (8.5-10.1); CARBON DIOXIDE LEVEL 26 MEQ/L (21-32); CHLORIDE LEVEL 111 MEQ/L (98-107); CREATININE FOR GFR 0.59 MG/DL (0.55-1.30); GLOMERULAR FILTRATION RATE > 60.0 (>60); GLUCOSE, FASTING 84 MG/DL (70-100); POTASSIUM SERUM 3.8 MEQ/L (3.5-5.1); SODIUM LEVEL 143 MEQ/L (136-145); TOTAL PROTEIN 6.3 GM/DL (6.4-8.2)
[2019-05-21 09:32] LABS: HEPATITIS A ANTIBODY IGM NEGATIVE (NEGATIVE); HEPATITIS B CORE ANTIBODY IGM NEGATIVE (NEGATIVE); HEPATITIS B SURFACE ANTIGEN NEGATIVE (NEGATIVE)
[2019-05-21 09:33] LABS: HEPATITIS C VIRUS ABY INDEX > 11.0 INDEX (<0.8)
--- NOTE | 2019-05-21 10:49 | IPNPDOC ---
Text Note Date of Service The patient was seen on 05/21/19. NOTE Subjective: Ms. Shelton was seen at bedside today (05/21) and reported no acute changes to her condition. . She was more responsive than yesterday but still somnolent and stuporous. She does not think that she would be able to remain awake for than 30 minutes She states prior to admission she "partied too hard", but does not remember which drugs she took except for Xanax and marijuana. When asked about her Xanax usage. She replies that she does not usually use Xanax and does not remember how much she took. She admits that she has hepatitis C that she has not been treated for. She states she slept well and passed bowel movements without incident. She denies pain, shortness of breath, chest pain, headache. Objective: General: Pt is a well-nourished female in no apparent distress. She was laying in her bed asleep upon entering. During exam she was somnolent and had difficulty supporting her body weight in the upright position. She did respond appropriately to questions. HEENT: Pupils respond to light and are equal. No scleral icterus noted. Poor oral hygiene noted. Trachea midline. Lungs: Mild inspiratory wheezing noted in her upper left apical lobe. Vesicular breath sounds heard throughout remaining lung exam. Heart: Regular rhythm and normal rate noted. No murmurs, rubs, or knocks noted. No muffled heart sounds. Abdomen: Obese abdomen noted. No pain or tenderness to palpation noted. Normal abdominal sounds noted in all 4 quadrants. No organomegaly, bruits, or distension noted. No guarding or rebound tenderness. No Jaundice noted Extremities: Small excoriations and bruises noted in her LE B/L. No edema noted. No rashes, wounds, weeping sores noted. No significant muscle atrophy noted. Neuro: No focal deficits noted. Pt in stuperous state. She does respond to questions appropriately. She is alert and aware to person, and place but not to time. She stated she thought it was April. Skin: Tattoos noted on neck and back. Imaging: - Liver Ultrasound: Impression: 1. Cholecystectomy. 2.Mildly dilatated common biliary duct measuring 10 mm. Assessment and plan: #Acute metabolic/toxic encephalopathy - likely 2/2 substance abuse and medication: Believed to be due to polysubstance abuse. Urinary Tox screen posit cristo for cocaine, benzodiazepines, and marijuana. Patient continues to be stuporous but does respond to questions appropriately. 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 Continue 1 on 1 sitter. Will continue to provide supportive care and monitor for improvement. Patient placed on Buprenorphine/Naloxone 14-3.5 mg yesterday and will continue treatment today. Psychiatry consulted yesterday and will see the patient this afternoon. #Bradycardia: Patient's heart rate greater than 55 and stable. Continue to have her on telemetry with atropine use indicated if HR <30. #Transaminitis: Likely related to pt's current Hep C infection and polysubstance abuse. Patient's hepatitis panel was negative for hep A and B and shows current hep C antibody >11. AST and ALT has been improving and are now 79 and 117 respectively. Continue to trend LFTs and monitor for acute exacerbation. Patient is not a good candidate for Hep C treatment due to active illicit drug use. #Elevated CK: CK was 1200 on admission and was 600 yesterday morning. CK relative index score is < 3 indicating a skeletal muscle etiology and troponin was negative. Continue patient on NS at 150 mL/hr. Will follow CK and test urine myoglobin to check for rhabdomyolysis which is unlikely given normal kidney function. BUN/creatinine do not indicate renal disease. #Hx of depression and OD attempts: Pt has a hx of previous OD attempts and [facility] Patient currently on prazosin, venlafaxine for previous history of depressive disorder and posttraumatic stress disorder. She's also on Gabapentin for anxiety. Psychology consult to screen for possible current depressive episode or SI has been ordered and is pending. Patient has passed sequential history consisting of depression, PTSD, borderline personality disorder, anxiety #DVT and Prophylaxis: Currently on TEDS and sequentials for DVT prophylaxis. Disposition: Psychiatry was consulted yesterday but was unable to see the patient yesterday due to time constraints. Psychiatry was contacted today and will see the patient this afternoon (05/21). Patient is medically cleared for discharge and will be discharged to home [facility] pending psychiatry assessment. VS,Fishbone, I+O VS, Fishbone, I+O Laboratory Tests 05/21/19 08:07 Red Blood Count 3.76 L, Mean Corpuscular Volume 94.4, Mean Corpuscular Hemoglobin 30.1, Mean Corpuscular Hemoglobin Concent 31.8 L, Red Cell Distribution Width 14.4, Calcium Level 8.1 L, Aspartate Amino Transf (AST/SGOT) 79 H, Alanine Aminotransferase (ALT/SGPT) 117 H, Alkaline Phosphatase 169 H, Total Bilirubin 1.1 H, Total Protein 6.3 L, Albumin 2.8 L Vital Signs Date Time Temp Pulse Resp B/P (MAP) Pulse Ox O2 Delivery O2 Flow Rate FiO2 05/21/19 09:00 95 Room Air 05/21/19 08:00 57 126/80 05/21/19 08:00 96.7 18 I&O- Last 24 Hours up to 6 AM 05/21/19 05:59 Intake Total 1600 ml Output Total 1200 ml Balance 400 ml GME ATTESTATION GME ATTESTATION My faculty preceptor for this patient encounter was physically present during the encounter and was fully available. All aspects of the patient interview, examination, medical decision making process, and medical care plan development were reviewed and approved by the faculty preceptor. The faculty preceptor is aware and concurs with the plan as stated in the body of this note and will attest to such by his/her cosignature. ATTENDING NOTE I, Germán Giron, have independently examined this patient and performed my own physical exam, as well as reviewed the documentation and edited where necessary. I have discussed in detail with the resident / student the findings and plan of treatment as documented by the resident / student and edited their note. I agree with their findings and treatment plan and have edited their documentation. I will continue to follow the patient during this hospital stay. JAYCEE CHAMPION OMS-3 May 21, 2019 10:49 GERMÁN GIRON MD May 21, 2019 14:01
[2019-05-21] MEDS: NICOTINE 21MG/24HR 1 EA TRANSDERMAL TD SCH (18:01)
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
[2019-05-21] MEDS: PRAZOSIN 1 MG CAP PO SCH ×2 (20:03→20:04)
[2019-05-21] MEDS: ACETAMINOPHEN TAB 650MG DOSE (2X325MG) PO PRN (23:10)
[2019-05-22] VITALS: BP 140/90
[2019-05-22 04:00] VITALS: BP 146/82
[2019-05-22 05:40] LABS: INR 0.98; PROTHROMBIN TIME 12.7 SECONDS (11.8-14.0)
[2019-05-22 06:23] LABS: HEMATOCRIT 34.1 % (36.0-47.0); HEMOGLOBIN 11.2 g/dl (12.0-15.5); MEAN CORPUSCULAR HEMOGLOBIN 31.3 pg (27.0-33.0); MEAN CORPUSCULAR HGB CONC 32.8 g/dl (32.0-36.5); MEAN CORPUSCULAR VOLUME 95.3 fl (80.0-96.0); PLATELET COUNT, AUTOMATED 127 10^3/uL (150-450); RED BLOOD COUNT 3.58 10^6/uL (4.00-5.40)
[2019-05-22 06:29] LABS: ALT/SGPT 101 U/L (12-78); BILIRUBIN,TOTAL 0.5 MG/DL (0.2-1.0); BLOOD UREA NITROGEN 8 MG/DL (7-18); CALCIUM LEVEL 8.3 MG/DL (8.5-10.1); CARBON DIOXIDE LEVEL 29 MEQ/L (21-32); CHLORIDE LEVEL 108 MEQ/L (98-107); CREATININE FOR GFR 0.67 MG/DL (0.55-1.30); GLOMERULAR FILTRATION RATE > 60.0 (>60); GLUCOSE, FASTING 104 MG/DL (70-100); SODIUM LEVEL 142 MEQ/L (136-145)
[2019-05-22 08:00] VITALS: BP 166/91
[2019-05-22] MEDS: NICOTINE 21MG/24HR 1 EA TRANSDERMAL TD SCH (08:12)
[2019-05-22] MEDS: BUPRENORPHINE/NALOXONE 2-0.5MG SUBLINGUAL TABLET(SUBOXONE) SL SCH (08:13)
[2019-05-22] MEDS: GABAPENTIN 300 MG CAP PO SCH ×3 (08:13→20:49)
[2019-05-22] MEDS: VENLAFAXINE **XR** 75MG CAPSULE PO SCH (08:13)
[2019-05-22] MEDS: FOLIC ACID 1 MG TAB PO SCH (08:13)
[2019-05-22] MEDS: MULTIVITAMINS/MINERALS THERAP 1 TAB PO SCH (08:14)
[2019-05-22] MEDS: THIAMINE 100 MG TAB PO SCH (08:14)
[2019-05-22] MEDS: BUPRENORPHINE/NALOXONE 8-2MG SUBLINGUAL TABLET(SUBOXONE) SL SCH (08:14)
[2019-05-22] MEDS: ACETAMINOPHEN TAB 650MG DOSE (2X325MG) PO PRN ×2 (10:36→22:43)
[2019-05-22 16:00] VITALS: BP 154/94
--- NOTE | 2019-05-22 16:23 | IPNPDOC ---
Date Seen The patient was seen on 05/22/19. Progress Note SUBJECTIVE: Patient was seen and examined this morning. There were no adverse events reported overnight. The patient was seen by psychiatry and is currently pending placement into [facility]. Patient does state that she has some redness of her left eye. She states that she has had previous redness in her right eye before she seen manager commercial sales who tells her that her eye gets inflamed. She denies any changes in her vision OBJECTIVE PHYSICAL EXAMINATION: VITAL SIGNS: Please see below. GENERAL: Awake, alert and oriented, lying in bed, appears no acute distress HEENT:. Normocephalic, atraumatic. Eyes nonicteric. Mild conjunctival injection of the left eye. Trachea is midline CARDIOVASCULAR:, Normal S1, S2, regular rate and rhythm. No clicks, rubs or murmurs. RESPIRATORY: Clear vesicular breath sounds bilaterally. Good respiratory effort with no wheezes, rhonchi or rales. Symmetric chest expansion ABDOMINAL: Obese, soft, nondistended, nontender to palpation all 4 quadrants. Normoactive bowel sounds EXTREMITIES:. No edema. Full and equal pulses in bilateral upper and lower extremities NEUROLOGICAL:. No focal neurological deficits PSYCHOLOGICAL:. Mood and affect appear appropriate. Judgment and insight, impaired LABORATORY DATA, IMAGING STUDIES, MICROBIOLOGY: Please see below. DVT prophylaxis ordered?: Mechanical DVT prophylaxis ASSESSMENT AND PLAN: Patient is a 33-year-old female who was admitted to the [facility] for drug overdose. On admission to the ICU. The patient was stuporous and unable to provide history. There is from the patient was medically stable, although is unable to answer questions appropriately. On urine toxicology the patient was positive for benzodiazepines, cocaine and cannabinoids. Her alcohol was undetectable., however, patient has a history of alcohol abuse and was started on CIWA protocol with thiamine and multivitamins. On the subsequent day, the patient was more arousable and had stated that she took some drugs and she believes it was Xanex although she is unsure. Patient did not provide much history as she is unsure of the circumstances surrounding her admission, however, states that she has been depressed for some time and had voiced possible suicidal ideation. Patient was placed with a sitter. The patient's drug overdose, resolved, and a psychiatry consult was placed for admission to the inpatient mental health unit. Patient was evaluated by psychiatry who suggested inpatient mental health admission. PROBLEMS: 1. Substance abuse -Patient was admitted for acute metabolic\toxic encephalopathy secondary to substance abuse. Patient's urine drug screen was positive for cocaine milligrams reason marijuana. Her acute metabolic\toxic encephalopathy has resolved and the patient is currently answering question appropriately. She is continued with a one-to-one sitter due to possible suicidal ideation. Patient is continued on buprenorphine and Naloxone 14-3.5 mg -Due to patient's substance abuse, poor insight, judgment and medications as possible suicidality. Psychiatry was consulted for admission to inpatient mental health unit. Patient has been accepted into the the patient is a health unit is currently awaiting a bed. 2. Bradycardia: -Patient had bradycardia with a heart rate of 55. However, she was asymptomatic and sleeping at the time. Patient's telemetry is discontinued 3. Transaminitis: -Patient is a history of polysubstance abuse including benzodiazepine use. She has chronic hepatitis C her AST and ALT are improving. This is likely secondary to benzodiazepine use. 4. Chronic hepatitis C -Patient has chronic hepatitis C infection. She will need to follow up outpatient for management of this including liver function tests to demonstrate resolution of her transaminitis as well as serial ultrasounds for screening for liver fibrosis. Patient will need hepatitis A and B vaccines given her her being at high risk infection -Patient may benefit from Zunilda of her hepatitis C however, if she continues IV drug use. She would be a risk for contraction again. 5. History of depression and overdose -Patient has previous admissions to [facility] for drug overdose. She has indicated possible suicidality. Psychiatry consult has been placed and patient is currently pending admission to the inpatient mental health unit for further management of her polysubstance abuse and suicidality. DISPOSITION: Patient has been medically cleared and is currently awaiting a bed at the inpatient mental health unit. VS, I&O, 24H, Fishbone Vital Signs/I&O Vital Signs Date Time Temp Pulse Resp B/P (MAP) Pulse Ox O2 Delivery O2 Flow Rate FiO2 05/22/19 08:00 97.1 60 18 166/91 (116) 99 05/21/19 16:00 Room Air I&O- Last 24 Hours up to 6 AM 05/22/19 06:00 Intake Total 2040 ml Output Total 1250 ml Balance 790 ml Laboratory Data 24H LABS Laboratory Tests 2 05/22/19 04:59: Nucleated Red Blood Cells % (auto) 0.0, Prothrombin Time 12.7, Prothromb Time International Ratio 0.98, Anion Gap 5L, Glomerular Filtration Rate > 60.0, Blood Urea Nitrogen 8, Creatinine 0.67, Sodium Level 142, Potassium Level 4.0, Chloride Level 108H, Carbon Dioxide Level 29, Calcium Level 8.3L, Aspartate Amino Transf (AST/SGOT) 55H, Alanine Aminotransferase (ALT/SGPT) 101H, Alkaline Phosphatase 149H, Total Bilirubin 0.5#, Total Protein 6.0L, Albumin 3.0L, A lbumin/Globulin Ratio 1.00 CBC/BMP Laboratory Tests 05/22/19 04:59 Red Blood Count 3.58 L, Mean Corpuscular Volume 95.3, Mean Corpuscular Hemoglobin 31.3, Mean Corpuscular Hemoglobin Concent 32.8, Red Cell Distribution Width 14.2, Calcium Level 8.3 L, Aspartate Amino Transf (AST/SGOT) 55 H, Alanine Aminotransferase (ALT/SGPT) 101 H, Alkaline Phosphatase 149 H, Total Bilirubin 0.5 #, Total Protein 6.0 L, Albumin 3.0 L GME ATTESTATION GME ATTESTATION My faculty preceptor for this patient encounter was physically present during the encounter and was fully available. All aspects of the patient interview, examination, medical decision making process, and medical care plan development were reviewed and approved by the faculty preceptor. The faculty preceptor is aware and concurs with the plan as stated in the body of this note and will attest to such by his/her cosignature. ATTENDING NOTE I, Germán Giron, have independently examined this patient and performed my own physical exam, as well as reviewed the documentation and edited where necessary. I have discussed in detail with the resident / student the findings and plan of treatment as documented by the resident / student and edited their note. I agree with their findings and treatment plan and have edited their documentation. I will continue to follow the patient during this hospital stay. Time spent on discharge - 35 minutes - Case has been discussed directly with Dr. Mcgee, who has accepted patient on transfer. We greatly appreciate their help. MARILU RICHARDSON DO May 22, 2019 16:23 GERMÁN GIRON MD May 23, 2019 15:26
[2019-05-22] MEDS ORDERED: SLF 3 ML SYR IV PRN (17:30)
[2019-05-22 20:30] VITALS: BP 154/92
[2019-05-22] MEDS: PRAZOSIN 1 MG CAP PO SCH ×2 (20:50→20:51)
[2019-05-22 20:51] VITALS: BP 154/92
[2019-05-22] MEDS: SLF 3 ML SYR IV SCH (20:51)
[2019-05-22] MEDS ORDERED: RAMELTEON 8 MG TAB (ROZEREM) PO SCH (21:00)
[2019-05-23 04:00] VITALS: BP 114/61
[2019-05-23 05:27] LABS: INR 0.96; PROTHROMBIN TIME 12.5 SECONDS (11.8-14.0)
[2019-05-23] MEDS: SLF 3 ML SYR IV SCH (06:38)
[2019-05-23] MEDS ORDERED: TOBRAMYCIN 0.3% OPHTH SOLN 5 ML OS SCH (09:00)
[2019-05-23] MEDS: VENLAFAXINE **XR** 75MG CAPSULE PO SCH (09:52)
[2019-05-23] MEDS: BUPRENORPHINE/NALOXONE 8-2MG SUBLINGUAL TABLET(SUBOXONE) SL SCH (09:53)
[2019-05-23] MEDS: FOLIC ACID 1 MG TAB PO SCH (09:53)
[2019-05-23] MEDS: GABAPENTIN 300 MG CAP PO SCH (09:53)
[2019-05-23] MEDS: MULTIVITAMINS/MINERALS THERAP 1 TAB PO SCH (09:53)
[2019-05-23] MEDS: NICOTINE 21MG/24HR 1 EA TRANSDERMAL TD SCH (09:54)
[2019-05-23] MEDS: BUPRENORPHINE/NALOXONE 2-0.5MG SUBLINGUAL TABLET(SUBOXONE) SL SCH (11:06)
[2019-05-23 14:00] VITALS: BP 113/70
--- NOTE | 2019-05-23 16:58 | DS.PDOC ---
Discharge Summary General Date of Admission May 20, 2019 at 14:45 Date of Discharge 05/23/19 Attending Physician: GERMÁN ANTHONY MD Specialist/Consultants Involve: Jesse Jacobs MD Discharge Summary PROCEDURES PERFORMED DURING STAY: [None]. ADMITTING DIAGNOSES: 1. Altered mental status secondary to polysubstance abuse 2. Bradycardia 3. Transaminitis 4. Bipolar disorder 5. Obesity with a BMI 31.1 6. History of polysubstance abuse 7. Chronic hepatitis C infection DISCHARGE DIAGNOSES: 1. Altered mental status secondary to polysubstance abuse 2. Bradycardia 3. Transaminitis 4. Bipolar disorder 5. Obesity with a BMI 31.1 6. History of polysubstance abuse 7. Chronic hepatitis C infection. COMPLICATIONS/CHIEF COMPLAINT: Altered Mental Status Associated With Intoxication. HISTORY OF PRESENT ILLNESS: Patient is a 33-year-old female who was admitted to [facility] for drug overdose. In the [facility] and the patient was found to have a urine toxicology positive for benzodiazepines, cocaine and cannabinoids. Initially she had abnormal liver function tests and elevated creatinine kinase. Her troponin was within normal limits and her EKG was unremarkable. Patient received IV fluids. Hospitalist service was consulted and the patient was admitted to the intensive care unit for further evaluation and management of her drug overdose. On admission to the intensive care unit, he patient was stuporous and unable to provide a medical history. Patient was medically stable, although was unable to answer questions appropriately. Her alcohol level was undetectable on admission, however, the patient has a history of alcohol abuse and was started on CIWA protocol, thiamine, and multivitamins. Regarding the patient's transaminitis was felt to be secondary to her benzodiazepine\polysubstance abuse. Additionally, the patient does have a history of chronic hepatitis C. Hepatitis C, A, and B serology was ordered. Patient was positive only for hepatitis C is likely chronic infection. Over the course of the patient's hospitalization, she became more alert. When the patient was more arousable, she had stated that she took some drugs, which she believed was Xanax, although she said she was unsure. Patient did not provide further history as she stated she was not sure, however, she did state that she has been depressed and voiced possible suicidal ideation. Patient was placed on one-to-one with a sitter. Psychiatry consult was placed as the patient had voiced suicidal ideation and she was accepted for admittance to the inpatient mental health unit Over the course the patient's hospitalization liver enzymes normalized. Additionally, the patient had elevated creatine kinase on admission, which has normalized over her hospitalization course. She was noted to have some bradycardia, although she was asymptomatic and appeared to occur while the patient was sleeping. Patient did note some left eye redness, which she states is a chronic condition. She states she has been seen by rn tele in which she was prescribed prednisone drops as well as tobramycin. DISCHARGE MEDICATIONS: Please see below. ALLERGIES: Please see below. PHYSICAL EXAMINATION ON DISCHARGE: VITAL SIGNS: Please see below. GENERAL: Awake, alert and oriented, lying in bed, appears no acute distress HEENT:. Normocephalic, atraumatic. Eyes nonicteric. Mild conjunctival injection of the left eye. Trachea is midline CARDIOVASCULAR:, Normal S1, S2, regular rate and rhythm. No clicks, rubs or murmurs. RESPIRATORY: Clear vesicular breath sounds bilaterally. Good respiratory effort with no wheezes, rhonchi or rales. Symmetric chest expansion ABDOMINAL: Obese, soft, nondistended, nontender to palpation all 4 quadrants. Normoactive bowel sounds EXTREMITIES:. No edema. Full and equal pulses in bilateral upper and lower extremities NEUROLOGICAL:. No focal neurological deficits PSYCHOLOGICAL:. Mood and affect appear appropriate. Judgment and insight, impaired LABORATORY DATA: Please see below. IMAGING: PROCEDURE INFORMATION: Exam: US Abdomen Limited, Right Upper Quadrant Exam date and time: 05/19/2019 10:03 PM Clinical history: 33 years old, female; Abnormal findings; Abnormal lab test; Abnormal function test of other organs/systems; Prior surgery; Surgery date: 6+ months; Surgery type: Cholecystectomy; Additional info: Transaminitis TECHNIQUE: Imaging protocol: Real-time ultrasound of the abdomen with image documentation. Examination was focused on the right upper quadrant. COMPARISON: RENAL US 04/25/2015 11:57 PM FINDINGS: Liver: Normal. No masses. Gallbladder: Cholecystectomy. Common bile duct: Mild common biliary duct dilatation, measuring 10 mm. Pancreas: Poorly visualized. Right kidney: Unremarkable 11 cm right kidney. IMPRESSION: 1. Cholecystectomy. 2. Mildly dilatated common biliary duct measuring 10 mm. Electronically signed by: Deuce Mayen On 05/19/2019 22:37:11 PM PROGNOSIS: Fair ACTIVITY: [As tolerated]. DIET: As tolerated DISCHARGE PLAN:. Patient is to be discharged to inpatient mental health unit for further evaluation and management of her suicidal ideation. Upon discharge from inpatient mental health unit, the patient is to follow-up with her primary care physician. Regarding the patient's elevated liver enzymes she will need follow- up in 3-6 months to see resolution. Additionally, the patient does have chronic hepatitis C and may benefit from referral to infectious diseases for possible treatment. However, she will have to abstain from substance abuse. DISPOSITION: Discharge to [facility] DISCHARGE CONDITION: [Stable]. TIME SPENT ON DISCHARGE: Greater than 40 minutes. Vital Signs/I&Os Vital Signs Date Time Temp Pulse Resp B/P (MAP) Pulse Ox O2 Delivery O2 Flow Rate FiO2 05/23/19 14:00 98.2 56 16 113/70 (84) 94 05/21/19 16:00 Room Air I&O- Last 24 Hours up to 6 AM 05/23/19 06:00 Intake Total 1590 ml Output Total 2750 ml Balance -1160 ml Laboratory Data Labs 24H Laboratory Tests 2 05/23/19 04:56: Prothrombin Time 12.5, Prothromb Time International Ratio 0.96 Discharge Medications Scheduled Buprenorphine HCl/Naloxone HCl (Buprenorphn-Naloxn 2-0.5 mg Sl) 1 Each Tab.subl, 3 TAB SL DAILY, (Reported) Gabapentin (Gabapentin) 300 Mg Capsule, 600 MG PO TID, (Reported) Prazosin Hcl (Prazosin HCl) 1 Mg Capsule, 1 MG PO QHS, (Reported) 6MG TOTAL Prazosin Hcl (Prazosin HCl) 5 Mg Capsule, 5 MG PO QHS, (Reported) Venlafaxine HCl (Venlafaxine HCl ER) 75 Mg Cap.er.24h, 225 MG PO DAILY, (Reported) Scheduled PRN Albuterol Sulfate (Proair Hfa) 8.5 Gm Hfa.aer.ad, 2 PUFF INH Q4H PRN for SOB/WHEEZING, (Reported) Trazodone HCl (Trazodone HCl) 100 Mg Tablet, 100 MG PO QHS PRN for SLEEP, (Reported) Miscellaneous Medications Buprenorphine HCl/Naloxone HCl (Suboxone 8 mg-2 mg Sl Film) 1 Each Film, 1 MIS SL, (Reported) Allergies Coded Allergies: Penicillins (Verified Allergy, Intermediate, 04/12/19) vancomycin (Verified Allergy, Unknown, HIVES-INJECTION SITE REACTION, 04/12/19) ibuprofen (Verified Adverse Reaction, Mild, UPSET STOMACH, 04/12/19) GME ATTESTATION GME ATTESTATION My faculty preceptor for this patient encounter was physically present during the encounter and was fully available. All aspects of the patient interview, examination, medical decision making process, and medical care plan development were reviewed and approved by the faculty preceptor. The faculty preceptor is aware and concurs with the plan as stated in the body of this note and will attest to such by his/her cosignature. ATTENDING NOTE I, Germán Anthony, have independently examined this patient and performed my own physical exam, as well as reviewed the documentation and edited where necessary. I have discussed in detail with the resident / student the findings and plan of treatment as documented by the resident / student and edited their note. I agree with their findings and treatment plan and have edited their documentation. I will continue to follow the patient during this hospital stay. Time spent on discharge - 35 minutes - Case has been discussed directly with Dr. Mcgee, who has accepted patient on transfer. We greatly appreciate their help. MARILU RICHARDSON DO May 23, 2019 16:58 GERMÁN ANTHONY MD May 24, 2019 10:12
== END 2019-05-23 14:56 | DRG 816 ==
LOC: M ED 13:56 → EDBD 13:56 → M ED INP 13:57 → M ICU 05-20 00:46 → INTOOBSV 05-20 14:45 → OBSVTOIN 05-20 14:45 → INTOOBSV 05-20 14:55 → OBSVTOIN 05-20 14:55 → M PCU 05-20 19:40 → M MS5PR 05-23 06:25
PROVIDERS: ADMIT Internal Medicine; ATTEND Internal Medicine
DX: T40.5X2A Poisoning by cocaine, intentional self-harm, initial encounter (principal); G92 Toxic encephalopathy; T42.4X2A Poisoning by benzodiazepines, intentional self-harm, initial encounter; F32.89 Other specified depressive episodes; B18.2 Chronic viral hepatitis C; F10.10 Alcohol abuse, uncomplicated; R00.1 Bradycardia, unspecified; R74.0 Nonspecific elevation of levels of transaminase and lactic acid dehydrogenase [LDH]; E66.9 Obesity, unspecified; Z68.31 Body mass index [BMI] 31.0-31.9, adult; Z79.899 Other long term (current) drug therapy; Z88.0 Allergy status to penicillin; Z91.5 Personal history of self-harm; Z88.1 Allergy status to other antibiotic agents; Z88.6 Allergy status to analgesic agent

== ENCOUNTER 2019-05-23 14:22 | Inpatient (IN) | payer MEDICAID, OTHER ==
[~2019-05-23] VITALS: Ht 157.5 cm; Wt 84.7 kg
[2019-05-23] MEDS: NICOTINE 21MG/24HR 1 EA TRANSDERMAL TD SCH (09:00)
[~2019-05-23 14:22] MED LIST changes: +BUPR1SUB4 SL; +PROAAER10 INH
[2019-05-23] MEDS ORDERED: MAALOX 30 ML SUSP *UDC PO PRN (15:15)
[2019-05-23] MEDS ORDERED: MOM 30ML SUSPENSION UDC PO PRN (15:15)
[2019-05-23] MEDS ORDERED: traZODone 50 MG TAB PO PRN (15:15)
[2019-05-23 17:21] VITALS: BP 140/90
[2019-05-23] MEDS: ACETAMINOPHEN TAB 650MG DOSE (2X325MG) PO PRN (17:56)
[2019-05-23] MEDS: GABAPENTIN 300 MG CAP PO SCH (20:17)
[2019-05-23] MEDS: traZODone 50 MG TAB PO PRN (20:17)
[2019-05-23] MEDS: CLOTRIMAZOLE 1% TOPICAL CREAM 30GM TOP SCH (23:19)
[2019-05-24 06:25] VITALS: BP 120/63
[2019-05-24 07:26] LABS: BASO % 0.5 % (0.0-1.0); EOS # 0.1 10^3/uL (0.0-0.5); EOS % 2.5 % (0.0-3.0); HEMATOCRIT 41.9 % (36.0-47.0); HEMOGLOBIN 13.7 g/dl (12.0-15.5); LYMPH # 2.3 10^3/uL (1.5-5.0); LYMPH % 40.2 % (24.0-44.0); MEAN CORPUSCULAR HEMOGLOBIN 30.9 pg (27.0-33.0); MEAN CORPUSCULAR HGB CONC 32.7 g/dl (32.0-36.5); MEAN CORPUSCULAR VOLUME 94.4 fl (80.0-96.0); MONO # 0.4 10^3/uL (0.0-0.8); MONO % 7.4 % (0.0-5.0); NEUTROPHILS # 2.8 10^3/uL (1.5-8.5); NEUTROPHILS % 49.2 % (36.0-66.0); PLATELET COUNT, AUTOMATED 193 10^3/uL (150-450); RED BLOOD COUNT 4.44 10^6/uL (4.00-5.40); WHITE BLOOD COUNT 5.6 10^3/uL (4.0-10.0)
[2019-05-24 08:06] LABS: ALBUMIN 3.6 GM/DL (3.2-5.2); ALT/SGPT 89 U/L (12-78); BILIRUBIN,TOTAL 0.4 MG/DL (0.2-1.0); BLOOD UREA NITROGEN 13 MG/DL (7-18); CALCIUM LEVEL 9.1 MG/DL (8.5-10.1); CARBON DIOXIDE LEVEL 32 MEQ/L (21-32); CHLORIDE LEVEL 106 MEQ/L (98-107); CPK CREATINE PHOSPHOKINASE 148 U/L (26-192); CREATININE FOR GFR 0.91 MG/DL (0.55-1.30); GLOMERULAR FILTRATION RATE > 60.0 (>60); GLUCOSE, FASTING 86 MG/DL (70-100); POTASSIUM SERUM 4.4 MEQ/L (3.5-5.1); SODIUM LEVEL 143 MEQ/L (136-145); TOTAL PROTEIN 7.5 GM/DL (6.4-8.2)
[2019-05-24] MEDS: BUPRENORPHINE/NALOXONE 8-2MG SUBLINGUAL TABLET(SUBOXONE) SL SCH (08:08)
[2019-05-24] MEDS: GABAPENTIN 300 MG CAP PO SCH ×3 (08:08→20:06)
[2019-05-24] MEDS: BUPRENORPHINE/NALOXONE 2-0.5MG SUBLINGUAL TABLET(SUBOXONE) SL SCH (08:08)
[2019-05-24] MEDS: NICOTINE 21MG/24HR 1 EA TRANSDERMAL TD SCH (08:09)
[2019-05-24] MEDS: CLOTRIMAZOLE 1% TOPICAL CREAM 30GM TOP SCH ×2 (08:10→20:06)
[2019-05-24] MEDS ORDERED: INFLUENZA QUADRIVALENT PF VACCINE 0.5ML SYRINGE (90686) IM ONE (09:00)
[2019-05-24] MEDS ORDERED: VENLAFAXINE **XR** 75MG CAPSULE PO SCH (09:00)
--- NOTE | 2019-05-24 09:33 | HPE ---
DATE OF ADMISSION: 05/23/2019 Please refer to the psychiatric history and evaluation for further details on this admission. This examination and history is intended for medical issues which may need treatment, followup or consultation on this 33-year-old female who was transferred from the intensive care unit (ICU) after having been treated for an overdose of polysubstance abuse. Her urine drug screen was positive for benzodiazepines, cocaine and TSH. Her liver function tests (LFTs) and CKs were elevated. Electrocardiogram (EKG) was unremarkable. She was groggy. She was given IV fluids. Stabilized. Her CK and liver enzymes gradually improved. By the time of transfer, total bilirubin was 0.5, AST was down to 55, ALT was down to 101 and CPK was down to 689. It was felt that she was medically stable. She was discharged and admitted to the inpatient mental health unit with diagnosis of altered mental status that had been secondary to polysubstance abuse - now improved, bradycardia - resolved, transaminitis secondary to hepatitis C, bipolar disorder, history of polysubstance abuse, and chronic hepatitis C infection. ALLERGIES: - PENICILLIN - IBUPROFEN - VANCOMYCIN SOCIAL HISTORY: She is . She has a history of alcohol abuse. She has a history of polysubstance abuse. She has attended rehabilitation in the past. She states she had been approximately one year drug free and then "fell off the wagon". PAST MEDICAL HISTORY: Hepatitis C. PAST SURGICAL HISTORY: Cholecystectomy. FAMILY HISTORY: Mother with lupus and rheumatoid arthritis. Father with hypertension. Multiple family members with history of mental illness and substance abuse. LABORATORY DATA: As of the , white count was 3.0, hemoglobin 11.2, hematocrit 34.1, and platelets low at 127. Sodium 142, potassium 4.0, chloride 108, CO2 29, anion gap 5, BUN 8, creatinine much improved at 0.67. Will redraw in the a.m. HOME MEDICATIONS: - albuterol HFA 2 puffs by mouth every 4 hours as needed for shortness of breath or wheeze - naloxone 2 tabs SL daily - Suboxone 8/2 one daily - gabapentin 600 mg by mouth four times a day - prazosin 1 mg capsule by mouth at bedtime - prazosin 5 mg capsule by mouth at bedtime - trazodone 100 mg to sleep - venlafaxine ER 75 mg by mouth daily REVIEW OF SYSTEMS: 10 systems review was done. The patient was very groggy, but was arousable. Later on in the day, I approached for the history and physical (H and P) and she was much more energetic and was feeling well. She complained of bilateral Athlete's foot. She had some slight redness in her left eye which she states was treated with antibiotic ointment and did not get better and now she states she was taking some type of, that she is unsure of, but she thought it was something with prednisone in it. Will followup on that and have her family bring in the bottles. PHYSICAL EXAMINATION: 33-year-old cooperative female in no acute distress. Height 62 inches. Weight 78.2 kg. Blood pressure 140/90. Pulse 52. Respirations 16. Temperature 97.2. The patient is alert and oriented times three. Pupils equal and react to light. Extraocular movements intact. Cornea and sclera clear. Conjunctiva normal. No facial asymmetry. Pharynx, tongue and gums pink and moist. Tongue is midline. Neck is supple, without lymphadenopathy. No thyromegaly. No goiter. Carotids 2+, without bruit. Chest clear to auscultation. Without wheeze or retraction. Heart is regular. Abdomen benign. Bowel sounds positive. Genitourinary ()/Rectal: Not done. Extremities show equal strength, full range of motion. No cyanosis, clubbing or edema. Dry, slightly reddened, scaly rash on both feet. Peripheral pulses equal and palpable bilaterally. Skin: Warm and dry. IMPRESSION AND PLAN: 1. Psychiatric. Plan per psychiatry. 2. Athlete's foot. Clotrimazole cream twice a day. 3. Elevated liver function tests, creatinine, CPK. Will have recheck in the a.m. 4. The patient would like referral at discharge for treatment of her polysubstance abuse. 5. Low platelets. Recheck CBC in a.m. 6. Left eye cornea slightly reddened. Monitor. She had been treated for it. 7. Hepatitis C recheck was done and was positive. 8. Monitor for drug and alcohol withdrawal.
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
[2019-05-24] MEDS ORDERED: VENLAFAXINE **XR** 75MG CAPSULE PO ONE (11:00)
[2019-05-24 15:54] VITALS: BP 128/81
[2019-05-24] MEDS: ACETAMINOPHEN TAB 650MG DOSE (2X325MG) PO PRN (18:18)
[2019-05-24] MEDS: PRAZOSIN 1 MG CAP PO SCH (20:05)
[2019-05-24] MEDS: traZODone 50 MG TAB PO PRN (20:06)
[2019-05-25 06:12] VITALS: BP 110/71
[2019-05-25] MEDS: BUPRENORPHINE/NALOXONE 2-0.5MG SUBLINGUAL TABLET(SUBOXONE) SL SCH (08:08)
[2019-05-25] MEDS: VENLAFAXINE **XR** 75MG CAPSULE PO SCH (08:09)
[2019-05-25] MEDS: CLOTRIMAZOLE 1% TOPICAL CREAM 30GM TOP SCH ×2 (08:09→20:30)
[2019-05-25] MEDS: BUPRENORPHINE/NALOXONE 8-2MG SUBLINGUAL TABLET(SUBOXONE) SL SCH (08:09)
[2019-05-25] MEDS: GABAPENTIN 300 MG CAP PO SCH ×3 (08:09→20:29)
[2019-05-25] MEDS: NICOTINE 21MG/24HR 1 EA TRANSDERMAL TD SCH (08:10)
[2019-05-25] MEDS: ACETAMINOPHEN TAB 650MG DOSE (2X325MG) PO PRN ×2 (12:12→18:19)
[2019-05-25 15:51] VITALS: BP 119/76
[2019-05-25] MEDS: PRAZOSIN 1 MG CAP PO SCH (20:34)
[2019-05-25] MEDS: traZODone 50 MG TAB PO PRN (20:34)
[2019-05-26 06:01] VITALS: BP 121/66
[2019-05-26] MEDS: BUPRENORPHINE/NALOXONE 2-0.5MG SUBLINGUAL TABLET(SUBOXONE) SL SCH (08:33)
[2019-05-26] MEDS: GABAPENTIN 300 MG CAP PO SCH ×3 (08:33→20:10)
[2019-05-26] MEDS: BUPRENORPHINE/NALOXONE 8-2MG SUBLINGUAL TABLET(SUBOXONE) SL SCH (08:33)
[2019-05-26] MEDS: NICOTINE 21MG/24HR 1 EA TRANSDERMAL TD SCH (08:33)
[2019-05-26] MEDS: CLOTRIMAZOLE 1% TOPICAL CREAM 30GM TOP SCH ×2 (08:34→20:09)
[2019-05-26] MEDS: VENLAFAXINE **XR** 75MG CAPSULE PO SCH (08:34)
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
[2019-05-26] MEDS: ACETAMINOPHEN TAB 650MG DOSE (2X325MG) PO PRN (12:43)
[2019-05-26 15:41] VITALS: BP 128/81
[2019-05-26] MEDS: PRAZOSIN 1 MG CAP PO SCH (20:09)
[2019-05-26] MEDS: traZODone 50 MG TAB PO PRN (20:10)
[2019-05-27 07:01] VITALS: BP 100/61
[2019-05-27] MEDS: NICOTINE 21MG/24HR 1 EA TRANSDERMAL TD SCH (08:26)
[2019-05-27] MEDS: GABAPENTIN 300 MG CAP PO SCH ×3 (08:27→20:10)
[2019-05-27] MEDS: VENLAFAXINE **XR** 75MG CAPSULE PO SCH (08:27)
[2019-05-27] MEDS: CLOTRIMAZOLE 1% TOPICAL CREAM 30GM TOP SCH ×2 (08:27→20:10)
[2019-05-27] MEDS: BUPRENORPHINE/NALOXONE 2-0.5MG SUBLINGUAL TABLET(SUBOXONE) SL SCH (08:56)
[2019-05-27] MEDS: BUPRENORPHINE/NALOXONE 8-2MG SUBLINGUAL TABLET(SUBOXONE) SL SCH (08:56)
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
[2019-05-27 16:09] VITALS: BP 132/74
[2019-05-27 20:11] VITALS: BP 132/74
[2019-05-27] MEDS: traZODone 50 MG TAB PO PRN (20:12)
[2019-05-27] MEDS ORDERED: PRAZOSIN 1 MG CAP PO SCH (21:00)
[2019-05-28 06:26] VITALS: BP 96/58
[2019-05-28] MEDS ORDERED: VENL75CA47 PO (08:45)
[2019-05-28] MEDS ORDERED: GABA-843 PO (08:45)
[2019-05-28] MEDS ORDERED: PRAZ2CAP PO (08:45)
[2019-05-28] MEDS ORDERED: TRAZ-163 PO (08:45)
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
[2019-05-28] MEDS: CLOTRIMAZOLE 1% TOPICAL CREAM 30GM TOP SCH (09:00)
[2019-05-28] MEDS: GABAPENTIN 300 MG CAP PO SCH (09:06)
[2019-05-28] MEDS: VENLAFAXINE **XR** 75MG CAPSULE PO SCH (09:06)
[2019-05-28] MEDS: NICOTINE 21MG/24HR 1 EA TRANSDERMAL TD SCH (09:06)
[2019-05-28] MEDS: BUPRENORPHINE/NALOXONE 8-2MG SUBLINGUAL TABLET(SUBOXONE) SL SCH (09:31)
[2019-05-28] MEDS: BUPRENORPHINE/NALOXONE 2-0.5MG SUBLINGUAL TABLET(SUBOXONE) SL SCH (09:31)
== END 2019-05-28 12:05 | disposition home or self-care (01) | DRG 754 ==
LOC: M PSY 15:00
PROVIDERS: ADMIT Psychiatry & Neurology Psychiatry; ATTEND Psychiatry & Neurology Psychiatry
DX: F32.9 Major depressive disorder, single episode, unspecified (principal); F11.10 Opioid abuse, uncomplicated; F17.200 Nicotine dependence, unspecified, uncomplicated; F43.21 Adjustment disorder with depressed mood; Z88.0 Allergy status to penicillin; Z88.1 Allergy status to other antibiotic agents; Z88.6 Allergy status to analgesic agent; Z79.899 Other long term (current) drug therapy; B19.20 Unspecified viral hepatitis C without hepatic coma; Z91.5 Personal history of self-harm

== ENCOUNTER → 2019-06-26 | Outpatient (CLI) | payer MEDICAID ==
[~2019-06-26] MED LIST changes: +PRAZ2CAP PO
== END ==
LOC: M OUTALCOH 08:23
PROVIDERS: ATTEND Psychiatry & Neurology Psychiatry
DX: F13.20 Sedative, hypnotic or anxiolytic dependence, uncomplicated (principal); F12.20 Cannabis dependence, uncomplicated

== ENCOUNTER 2019-08-11 08:45 | Outpatient (RCR) | payer MEDICAID | END 2019-08-12 | LOC: M OUTALCOH 08:45 | PROVIDERS: ATTEND Psychiatry & Neurology Psychiatry | DX: F11.20 Opioid dependence, uncomplicated (principal); F13.20 Sedative, hypnotic or anxiolytic dependence, uncomplicated; F12.20 Cannabis dependence, uncomplicated; F17.200 Nicotine dependence, unspecified, uncomplicated ==

== ENCOUNTER 2019-12-04 09:19 | Emergency (ER) | payer MEDICAID, OTHER ==
[~2019-12-04 09:19] MED LIST changes: -TRAZ-163 PO; +TRAZ-257 PO
[2019-12-04] MEDS ORDERED: ACETAMINOPHEN TAB 650MG DOSE (2X325MG) PO ONE (10:00)
[2019-12-04 10:15] VITALS: O2SAT 94
[2019-12-04] MEDS ORDERED: BUPRENORPHINE/NALOXONE 8-2MG SUBLINGUAL TABLET(SUBOXONE) SL SCH (10:45)
[2019-12-04] MEDS ORDERED: BUPRENORPHINE/NALOXONE 2-0.5MG SUBLINGUAL TABLET(SUBOXONE) SL SCH (11:00)
[2019-12-04 11:19] VITALS: BP 128/79
== END 2019-12-04 11:28 | disposition home or self-care (01) ==
LOC: EDBD 09:19 → M ED 09:19
DX: J06.9 Acute upper respiratory infection, unspecified (principal); R05 Cough; F17.218 Nicotine dependence, cigarettes, with other nicotine-induced disorders; Z88.0 Allergy status to penicillin; Z88.1 Allergy status to other antibiotic agents; F19.10 Other psychoactive substance abuse, uncomplicated
CPT/HCPCS: 87486; 87581; 87633; 87798; 99284; U0002

== ENCOUNTER 2020-03-28 15:33 | Emergency (ER) | payer OTHER | END 2020-03-28 17:19 | disposition home or self-care (01) | LOC: M ED 15:33 | DX: L73.9 Follicular disorder, unspecified (principal); J02.0 Streptococcal pharyngitis; K21.9 Gastro-esophageal reflux disease without esophagitis; F19.10 Other psychoactive substance abuse, uncomplicated; Z88.0 Allergy status to penicillin; Z79.899 Other long term (current) drug therapy; Z79.2 Long term (current) use of antibiotics; Z79.891 Long term (current) use of opiate analgesic ==

== ENCOUNTER 2020-04-28 17:20 | Emergency (ER) | payer OTHER ==
[~2020-04-28] VITALS: Ht 157.5 cm; Wt 71.2 kg
[2020-04-28 17:21] VITALS: BP 141/83
[2020-04-28] MEDS ORDERED: SUBO12MI SL (17:30)
[2020-04-28 19:58] LABS: BASO % 0.1 % (0.0-1.0); EOS # 0.1 10^3/uL (0.0-0.5); EOS % 1.1 % (0.0-3.0); HEMATOCRIT 35.7 % (36.0-47.0); HEMOGLOBIN 11.5 g/dl (12.0-15.5); LYMPH # 1.9 10^3/uL (1.5-5.0); LYMPH % 17.5 % (24.0-44.0); MEAN CORPUSCULAR HEMOGLOBIN 29.8 pg (27.0-33.0); MEAN CORPUSCULAR HGB CONC 32.2 g/dl (32.0-36.5); MEAN CORPUSCULAR VOLUME 92.5 fl (80.0-96.0); MONO # 0.7 10^3/uL (0.0-0.8); MONO % 6.1 % (0.0-5.0); NEUTROPHILS % 74.7 % (36.0-66.0); PLATELET COUNT, AUTOMATED 171 10^3/uL (150-450); RED BLOOD COUNT 3.86 10^6/uL (4.00-5.40); WHITE BLOOD COUNT 10.7 10^3/uL (4.0-10.0)
[2020-04-28 20:18] LABS: AMPHETAMINES LEVEL URINE POSITIVE (NEGATIVE); BARBITURATES URINE NEGATIVE (NEGATIVE); BENZODIAZEPINES URINE NEGATIVE (NEGATIVE); CANNABINOIDS URINE POSITIVE (NEGATIVE); COCAINE METABOLITE URINE POSITIVE (NEGATIVE); METHADONE URINE POSITIVE (NEGATIVE); OPIATES URINE POSITIVE (NEGATIVE); PHENCYCLIDINE URINE NEGATIVE (NEGATIVE)
[2020-04-28 20:24] LABS: ALBUMIN 3.5 GM/DL (3.2-5.2); ALT/SGPT 239 U/L (12-78); BILIRUBIN,TOTAL 0.5 MG/DL (0.2-1.0); BLOOD UREA NITROGEN 11 MG/DL (7-18); CALCIUM LEVEL 8.6 MG/DL (8.5-10.1); CARBON DIOXIDE LEVEL 32 MEQ/L (21-32); CHLORIDE LEVEL 103 MEQ/L (98-107); CREATININE FOR GFR 0.71 MG/DL (0.55-1.30); GLOMERULAR FILTRATION RATE > 60.0 (>60); GLUCOSE, FASTING 107 MG/DL (70-100); POTASSIUM SERUM 3.6 MEQ/L (3.5-5.1); SODIUM LEVEL 140 MEQ/L (136-145); TOTAL PROTEIN 6.7 GM/DL (6.4-8.2)
[2020-04-28 20:37] LABS: ERYTHROCYTE SEDIMENTATION RATE 20 mm/hr (0-20)
[2020-04-28 21:14] LABS: HIV 1&2 SCREEN CENTAUR NEGATIVE (NEGATIVE)
== END 2020-04-28 19:50 | disposition home or self-care (01) ==
LOC: M ED 17:20
DX: L98.499 Non-pressure chronic ulcer of skin of other sites with unspecified severity (principal); L30.9 Dermatitis, unspecified; I10 Essential (primary) hypertension; K21.9 Gastro-esophageal reflux disease without esophagitis; B19.9 Unspecified viral hepatitis without hepatic coma; F31.9 Bipolar disorder, unspecified; F41.9 Anxiety disorder, unspecified; F19.10 Other psychoactive substance abuse, uncomplicated; F17.200 Nicotine dependence, unspecified, uncomplicated; Z88.0 Allergy status to penicillin; Z88.1 Allergy status to other antibiotic agents

== ENCOUNTER → 2020-04-29 | Outpatient (REF) | payer OTHER ==
[~2020-04-29] MED LIST changes: +SUBO12MI SL
== END ==
LOC: EEVIPCON 17:00 → M LAB REF 17:00
PROVIDERS: ATTEND Dermatology
DX: L98.499 Non-pressure chronic ulcer of skin of other sites with unspecified severity (principal)

== ENCOUNTER → 2020-05-12 | Outpatient (REF) | payer OTHER ==
[2020-05-12 17:17] LABS: APPEARANCE, URINE CLOUDY (CLEAR); BACTERIA, URINE AUTO NEGATIVE (NEGATIVE); BILIRUBIN, URINE AUTO NEGATIVE (NEGATIVE); BLOOD, URINE BLOOD 2+ (NEGATIVE); CALCIUM OXALATE CRYSTALS SMALL; COLOR, URINE YELLOW (YELLOW); GLUCOSE, URINE (UA) AUTO NEGATIVE (NEGATIVE); KETONE, URINE AUTO NEGATIVE (NEGATIVE); LEUKOCYTE ESTERASE, URINE AUTO NEGATIVE (NEGATIVE); MUCUS, URINE SMALL (NEGATIVE); NITRITE, URINE AUTO NEGATIVE (NEGATIVE); PROTEIN, URINE AUTO NEGATIVE (NEGATIVE); RBC, URINE AUTO 2 /HPF (0-3); SPECIFIC GRAVITY URINE AUTO 1.016 (1.002-1.035); SQUAMOUS EPITHELIAL CELL UR AU 26 /HPF (0-6); WBC, URINE AUTO 1 /HPF (0-3)
== END ==
LOC: M LAB REF 16:47
PROVIDERS: ATTEND Nurse Practitioner Family
DX: Z13.9 Encounter for screening, unspecified (principal); L30.9 Dermatitis, unspecified; E66.9 Obesity, unspecified; F17.200 Nicotine dependence, unspecified, uncomplicated; R30.0 Dysuria

== ENCOUNTER → 2020-05-12 | Outpatient (REF) | payer OTHER ==
[2020-05-12 18:09] LABS: BASO % 0.4 % (0.0-1.0); EOS # 0.1 10^3/uL (0.0-0.5); EOS % 1.1 % (0.0-3.0); HEMATOCRIT 35.8 % (36.0-47.0); HEMOGLOBIN 11.4 g/dl (12.0-15.5); LYMPH % 19.9 % (24.0-44.0); MEAN CORPUSCULAR HEMOGLOBIN 29.6 pg (27.0-33.0); MEAN CORPUSCULAR HGB CONC 31.8 g/dl (32.0-36.5); MONO # 0.3 10^3/uL (0.0-0.8); MONO % 6.3 % (0.0-5.0); NEUTROPHILS # 3.8 10^3/uL (1.5-8.5); NEUTROPHILS % 72.1 % (36.0-66.0); PLATELET COUNT, AUTOMATED 164 10^3/uL (150-450); RED BLOOD COUNT 3.85 10^6/uL (4.00-5.40); WHITE BLOOD COUNT 5.2 10^3/uL (4.0-10.0)
[2020-05-12 18:22] LABS: ALBUMIN 3.8 GM/DL (3.2-5.2); ALT/SGPT 52 U/L (12-78); BILIRUBIN,TOTAL 0.4 MG/DL (0.2-1.0); BLOOD UREA NITROGEN 13 MG/DL (7-18); CARBON DIOXIDE LEVEL 29 MEQ/L (21-32); CHLORIDE LEVEL 106 MEQ/L (98-107); CHOLESTEROL LEVEL 145 MG/DL (<200); CHOLESTEROL RISK RATIO 3.295 (<5); CREATININE FOR GFR 0.82 MG/DL (0.55-1.30); FREE T4 1.22 NG/DL (0.76-1.46); GLOMERULAR FILTRATION RATE > 60.0 (>60); GLUCOSE, FASTING 101 MG/DL (70-100); HDL CHOLESTEROL 44 MG/DL (>40); LDL CHOLESTEROL 70 MG/DL (<100); NON-HDL-C 101 MG/DL; POTASSIUM SERUM 4.4 MEQ/L (3.5-5.1); SODIUM LEVEL 138 MEQ/L (136-145); TOTAL PROTEIN 7.2 GM/DL (6.4-8.2); TRIGLYCERIDES LEVEL 156 MG/DL (<150)
[2020-05-12 18:24] LABS: TOTAL 25(OH) VITAMIN D 45.1 NG/ML (30.0-100.0)
[2020-05-12 19:13] LABS: HEMOGLOBIN A1c 5.1 %
== END ==
LOC: M LAB REF 17:26
PROVIDERS: ATTEND Nurse Practitioner Family
DX: Z13.9 Encounter for screening, unspecified (principal); L30.9 Dermatitis, unspecified; E66.9 Obesity, unspecified; R30.0 Dysuria; F17.200 Nicotine dependence, unspecified, uncomplicated

== ENCOUNTER 2020-06-21 18:50 | Emergency (ER) | payer OTHER ==
[~2020-06-21] VITALS: Ht 160 cm; Wt 64.3 kg
[2020-06-21] MEDS ORDERED: NS 1,000 ML IV ONE (19:45)
[2020-06-21] MEDS ORDERED: ONDANSETRON 4MG/2ML VIAL IV ONE (19:45)
[2020-06-21] MEDS ORDERED: MORPHINE 4 MG/ML 1ML VIAL/SYRINGE (J2270) IV ONE (19:45)
[2020-06-21 20:19] LABS: BASO % 0.4 % (0.0-1.0); EOS % 0.2 % (0.0-3.0); HEMATOCRIT 43.4 % (36.0-47.0); HEMOGLOBIN 14.1 g/dl (12.0-15.5); LYMPH # 1.9 10^3/uL (1.5-5.0); LYMPH % 22.8 % (24.0-44.0); MEAN CORPUSCULAR HEMOGLOBIN 29.1 pg (27.0-33.0); MEAN CORPUSCULAR HGB CONC 32.5 g/dl (32.0-36.5); MEAN CORPUSCULAR VOLUME 89.5 fl (80.0-96.0); MONO # 0.5 10^3/uL (0.0-0.8); MONO % 5.6 % (0.0-5.0); NEUTROPHILS # 5.8 10^3/uL (1.5-8.5); NEUTROPHILS % 70.5 % (36.0-66.0); PLATELET COUNT, AUTOMATED 203 10^3/uL (150-450); RED BLOOD COUNT 4.85 10^6/uL (4.00-5.40); WHITE BLOOD COUNT 8.2 10^3/uL (4.0-10.0)
[2020-06-21 20:37] LABS: ALBUMIN 4.2 GM/DL (3.2-5.2); ALT/SGPT 49 U/L (12-78); BILIRUBIN,DIRECT 0.2 MG/DL (0.0-0.2); BILIRUBIN,TOTAL 0.5 MG/DL (0.2-1.0); LIPASE 59 U/L (73-393); TOTAL PROTEIN 8.1 GM/DL (6.4-8.2)
--- NOTE | 2020-06-21 23:15 | REPVR ---
PROCEDURE INFORMATION: Exam: US Nonobstetric Pelvis; Complete Exam date and time: 06/21/2020 10:57 PM Age: 34 years old Clinical indication: Pelvic pain TECHNIQUE: Imaging protocol: Transabdominal pelvic nonobstetric ultrasound. Complete exam. Real time ultrasound with image documentation. COMPARISON: US PELVIC NON-OB COMPLETE 05/08/2014 1:11 PM FINDINGS: Uterus measures 6.3 x 2.8 by 4.3 cm in size. No focal uterine mass. Endometrial stripe appears homogeneous, measuring 2 mm in thickness. Right ovary measures 1.9 x 2.0 x 2.3 cm in size. No dominant mass or cyst. Left ovary measures 1.2 x 1.7 x 1.4 cm in size. No dominant mass or cyst. Doppler flow is documented in both ovaries. No abnormal volume of free fluid within the pelvis. IMPRESSION: Unremarkable pelvic ultrasound. Electronically signed by: Rao Cisneros On 06/21/2020 23:15:02 PM
[2020-06-21] MEDS ORDERED: NORCO 5/325MG TABLET (BULK FOR ED) PO ONE (23:30)
[2020-06-21] MEDS ORDERED: KETOROLAC 60MG 2ML VIAL IM ONE (23:30)
[2020-06-21] MEDS ORDERED: IBUPROFEN 600MG TAB PO ONE (23:30)
[2020-06-21] MEDS ORDERED: VENL75CA47 PO (23:56)
[2020-06-22 00:15] VITALS: BP 130/84
[2020-06-22 01:15] LABS: BLOOD UREA NITROGEN 7 MG/DL (7-18); CALCIUM LEVEL 9.8 MG/DL (8.5-10.1); CARBON DIOXIDE LEVEL 26 MEQ/L (21-32); CHLORIDE LEVEL 106 MEQ/L (98-107); CREATININE FOR GFR 0.96 MG/DL (0.55-1.30); GLOMERULAR FILTRATION RATE > 60.0 (>60); GLUCOSE, FASTING 79 MG/DL (70-100); POTASSIUM SERUM 3.7 MEQ/L (3.5-5.1); SODIUM LEVEL 140 MEQ/L (136-145)
== END 2020-06-22 00:18 | disposition home or self-care (01) ==
LOC: M ED 18:50
DX: R10.30 Lower abdominal pain, unspecified (principal); R11.0 Nausea; Z76.0 Encounter for issue of repeat prescription; Z87.442 Personal history of urinary calculi; R51.9 Headache, unspecified; Z86.14 Personal history of Methicillin resistant Staphylococcus aureus infection; Z86.19 Personal history of other infectious and parasitic diseases; F17.200 Nicotine dependence, unspecified, uncomplicated; Z88.0 Allergy status to penicillin; Z88.1 Allergy status to other antibiotic agents; Z88.6 Allergy status to analgesic agent; Z79.899 Other long term (current) drug therapy
CPT/HCPCS: 76830; 76856; 80048; 80076; 81001; 83690; 84702; 85025; 87086; 93976; 96361; 96372; 96374; 96375; 99284; J1885; J2270; J2405

== ENCOUNTER 2021-01-17 09:42 | Emergency (ER) | payer OTHER ==
[~2021-01-17] VITALS: Ht 157.5 cm; Wt 71.0 kg
[2021-01-17 09:42] VITALS: BP 152/103
[~2021-01-17 09:42] MED LIST changes: -NEXP1IMP SC
[2021-01-17] MEDS ORDERED: NEXP1IMP SC (09:50)
== END 2021-01-17 11:15 | disposition left against medical advice (07) ==
LOC: M ED 09:42
DX: Z53.21 Procedure and treatment not carried out due to patient leaving prior to being seen by health care provider (principal)

== ENCOUNTER → 2021-01-17 | Outpatient (REF) | payer OTHER ==
[~2021-01-17] MED LIST changes: +GABA-282 PO; -GABA-843 PO; +NEXP1IMP SC
[2021-01-17 18:09] LABS: APPEARANCE, URINE CLOUDY (CLEAR); BACTERIA, URINE AUTO 2+ (NEGATIVE); BILIRUBIN, URINE AUTO NEGATIVE (NEGATIVE); BLOOD, URINE BLOOD 2+ (NEGATIVE); COLOR, URINE YELLOW (YELLOW); GLUCOSE, URINE (UA) AUTO NEGATIVE (NEGATIVE); KETONE, URINE AUTO NEGATIVE (NEGATIVE); LEUKOCYTE ESTERASE, URINE AUTO 2+ (NEGATIVE); MUCUS, URINE SMALL (NEGATIVE); NITRITE, URINE AUTO POSITIVE (NEGATIVE); PROTEIN, URINE AUTO 2+ mg/dL (NEGATIVE); RBC, URINE AUTO 60 /HPF (0-3); SPECIFIC GRAVITY URINE AUTO 1.012 (1.002-1.035); SQUAMOUS EPITHELIAL CELL UR AU 8 /HPF (0-6); UROBILINOGEN, URINE AUTO 0.2 mg/dL (0.0-2.0); WBC, URINE AUTO TNTC /HPF (0-3)
== END ==
LOC: M LAB REF 16:29
PROVIDERS: ATTEND Physician Assistant Medical
DX: N39.0 Urinary tract infection, site not specified (principal)

== ENCOUNTER 2022-01-30 16:57 | Emergency (ER) | payer OTHER ==
[~2022-01-30] VITALS: Ht 157.5 cm; Wt 79.5 kg
[~2022-01-30 16:57] MED LIST changes: -CEFD1CAP8 PO; +CEFD300C41 PO; -DOXY150C PO; +DOXY150C3 PO; +NEXP1IMP SC
[2022-01-30] MEDS ORDERED: METH5TA PO (17:08)
[2022-01-30] MEDS ORDERED: HYDR50TA70 (17:11)
[2022-01-30] MEDS ORDERED: PRAZ2CAP (17:11)
[2022-01-30] MEDS ORDERED: KETOROLAC 30 MG/ML 1ML VIAL IV ONE (18:55)
[2022-01-30 20:01] LABS: BASO % 0.3 % (0.0-1.0); EOS # 0.1 10^3/uL (0.0-0.5); HEMATOCRIT 34.4 % (36.0-47.0); HEMOGLOBIN 10.9 g/dl (12.0-15.5); MEAN CORPUSCULAR HEMOGLOBIN 29.2 pg (27.0-33.0); MEAN CORPUSCULAR HGB CONC 31.7 g/dl (32.0-36.5); MEAN CORPUSCULAR VOLUME 92.2 fl (80.0-96.0); MONO # 0.5 10^3/uL (0.0-0.8); MONO % 8.2 % (2.0-8.0); NEUTROPHILS # 3.3 10^3/uL (1.5-8.5); NEUTROPHILS % 56.2 % (36.0-66.0); RED BLOOD COUNT 3.73 10^6/uL (4.00-5.40); WHITE BLOOD COUNT 5.9 10^3/uL (4.0-10.0)
[2022-01-30 22:04] VITALS: BP 113/56
[2022-01-30] MEDS ORDERED: EMLA CREAM 5GM TUBE (LIDOCAINE/PRILOCAINE) TOP ONE (22:35)
== END 2022-01-30 22:08 | disposition home or self-care (01) ==
LOC: M ED 16:57
DX: R10.2 Pelvic and perineal pain (principal); B18.2 Chronic viral hepatitis C; I10 Essential (primary) hypertension; F17.200 Nicotine dependence, unspecified, uncomplicated; Z88.0 Allergy status to penicillin; Z88.1 Allergy status to other antibiotic agents; Z88.6 Allergy status to analgesic agent
CPT/HCPCS: 76856; 80047; 81001; 84702; 85025; 87088; 87186; 93976; 96374; 99284; J1885

== ENCOUNTER 2022-05-23 14:11 | Emergency (ER) | payer OTHER ==
[~2022-05-23] VITALS: Ht 160 cm; Wt 65.9 kg
[~2022-05-23 14:11] MED LIST changes: +ETON68IM SC; +HYDR50TA70; +METH5TA PO; -NEXP1IMP SC; +PRAZ2CAP
[2022-05-23] MEDS ORDERED: NAPROXEN 250 MG TAB PO ONE (16:15)
[2022-05-23] MEDS ORDERED: NAPR-837 PO (17:29)
[2022-05-23] MEDS ORDERED: BACT800T5 PO (17:29)
[2022-05-23 17:30] VITALS: BP 145/71
== END 2022-05-23 17:36 | disposition home or self-care (01) ==
LOC: M ED 14:11
DX: S93.401A Sprain of unspecified ligament of right ankle, initial encounter (principal); L03.113 Cellulitis of right upper limb; X58.XXXA Exposure to other specified factors, initial encounter; Z86.19 Personal history of other infectious and parasitic diseases; F41.9 Anxiety disorder, unspecified; F32.9 Major depressive disorder, single episode, unspecified; F17.290 Nicotine dependence, other tobacco product, uncomplicated; F19.10 Other psychoactive substance abuse, uncomplicated; Z79.899 Other long term (current) drug therapy; Z88.0 Allergy status to penicillin; Z88.6 Allergy status to analgesic agent; Z88.1 Allergy status to other antibiotic agents

== ENCOUNTER 2022-11-21 13:23 | Inpatient (IN) | payer OTHER ==
[~2022-11-21] VITALS: Ht 157.5 cm; Wt 72.6 kg
[~2022-11-21 13:23] MED LIST changes: +NAPR-837 PO
[2022-11-21] MEDS ORDERED: MORPHINE 10 MG/ML 1ML VIAL IM ONE (14:25)
[2022-11-21 15:20] LABS: BASO % 0.2 % (0.0-1.0); EOS # 0.1 10^3/uL (0.0-0.5); EOS % 0.7 % (0.0-3.0); HEMATOCRIT 33.6 % (36.0-47.0); HEMOGLOBIN 10.7 g/dl (12.0-15.5); LYMPH # 1.6 10^3/uL (1.5-5.0); LYMPH % 11.4 % (24.0-44.0); MEAN CORPUSCULAR HEMOGLOBIN 28.8 pg (27.0-33.0); MEAN CORPUSCULAR HGB CONC 31.8 g/dl (32.0-36.5); MEAN CORPUSCULAR VOLUME 90.3 fl (80.0-96.0); MONO # 1.2 10^3/uL (0.0-0.8); MONO % 8.4 % (2.0-8.0); NEUTROPHILS # 10.7 10^3/uL (1.5-8.5); NEUTROPHILS % 78.6 % (36.0-66.0); PLATELET COUNT, AUTOMATED 176 10^3/uL (150-450); RED BLOOD COUNT 3.72 10^6/uL (4.00-5.40); WHITE BLOOD COUNT 13.7 10^3/uL (4.0-10.0)
[2022-11-21 15:38] LABS: ERYTHROCYTE SEDIMENTATION RATE 76 mm/hr (0-20)
[2022-11-21] MEDS ORDERED: fentaNYL 100 MCG/2 ML INJECTION IV ONE (16:00)
[2022-11-21] MEDS ORDERED: CLINDAMYCIN 900 MG in IV 1 EA IV ONE (16:00)
[2022-11-21] MEDS ORDERED: IBUP-1730 PO (16:19)
[2022-11-21] MEDS ORDERED: ACET-907 PO (16:19)
[2022-11-21] MEDS ORDERED: HOME MED LIST COMPLETE! XX SCH (16:20)
[2022-11-21] MEDS ORDERED: LIDOCAINE 1% MDV 20ML VIAL SC ONE (16:30)
[2022-11-21] MEDS ORDERED: MOM 30ML SUSPENSION UDC PO PRN (16:35)
[2022-11-21] MEDS ORDERED: ACETAMINOPHEN TAB 650MG DOSE (2X325MG) PO PRN (16:35)
[2022-11-21] MEDS ORDERED: fentaNYL 100 MCG/2 ML INJECTION IV PRN (16:50)
[2022-11-21 17:00] LABS: RSV AMPLIFICATION NEGATIVE (NEGATIVE)
[2022-11-21] MEDS ORDERED: KETOROLAC 30 MG/ML 1ML VIAL IV PRN (17:10)
[2022-11-21] MEDS: ACETAMINOPHEN 500 MG TAB PO SCH (17:59)
[2022-11-21] MEDS: MORPHINE 4 MG/ML 1ML VIAL IV PRN (17:59)
[2022-11-21] MEDS ORDERED: VANCOMYCIN HCL 750 MG, VIAL MATE ADAPTER 1 EACH in D5W 250 ML IV ONE ×2 (18:00→19:00)
[2022-11-21] MEDS ORDERED: LR 2,000 ML IV ONE (18:30)
[2022-11-21 18:45] VITALS: BP 109/73
[2022-11-21] MEDS ORDERED: LIDOCAINE W/EPINEPHRINE 1% 20ML VIAL SC ONE (19:05)
[2022-11-21] MEDS: KETOROLAC 30 MG/ML 1ML VIAL IV PRN (19:38)
[2022-11-21] MEDS ORDERED: NICOTINE POLACRILEX 2 MG GUM PO PRN (20:05)
[2022-11-21 21:00] VITALS: BP 105/58
[2022-11-22] MEDS: ACETAMINOPHEN 500 MG TAB PO SCH ×5 (00:23→23:52)
[2022-11-22] MEDS: MORPHINE 4 MG/ML 1ML VIAL IV PRN ×2 (01:47→16:51)
[2022-11-22] MEDS: VANCOMYCIN HCL 750 MG, VIAL MATE ADAPTER 1 EACH in NS 250 ML IV SCH ×2 (01:48→10:19)
[2022-11-22 02:00] VITALS: BP 114/65
[2022-11-22] MEDS: KETOROLAC 30 MG/ML 1ML VIAL IV PRN ×4 (04:19→22:36)
[2022-11-22 04:56] LABS: BARBITURATES URINE NEGATIVE (NEGATIVE); COCAINE METABOLITE URINE NEGATIVE (NEGATIVE); PHENCYCLIDINE URINE NEGATIVE (NEGATIVE)
[2022-11-22 05:09] LABS: AMPHETAMINES LEVEL URINE POSITIVE (NEGATIVE); BENZODIAZEPINES URINE POSITIVE (NEGATIVE); CANNABINOIDS URINE POSITIVE (NEGATIVE); METHADONE URINE POSITIVE (NEGATIVE); OPIATES URINE POSITIVE (NEGATIVE)
[2022-11-22 06:00] VITALS: BP 107/65
[2022-11-22] MEDS ORDERED: METH10CO PO (08:46)
[2022-11-22] MEDS ORDERED: METHADONE 10MG TAB PO SCH (09:00)
[2022-11-22 09:38] LABS: BASO % 0.2 % (0.0-1.0); EOS # 0.2 10^3/uL (0.0-0.5); EOS % 1.7 % (0.0-3.0); HEMATOCRIT 33.1 % (36.0-47.0); HEMOGLOBIN 10.5 g/dl (12.0-15.5); LYMPH # 2.8 10^3/uL (1.5-5.0); LYMPH % 27.5 % (24.0-44.0); MEAN CORPUSCULAR HEMOGLOBIN 28.7 pg (27.0-33.0); MEAN CORPUSCULAR HGB CONC 31.7 g/dl (32.0-36.5); MEAN CORPUSCULAR VOLUME 90.4 fl (80.0-96.0); MONO # 0.7 10^3/uL (0.0-0.8); MONO % 6.9 % (2.0-8.0); NEUTROPHILS # 6.4 10^3/uL (1.5-8.5); NEUTROPHILS % 63.3 % (36.0-66.0); PLATELET COUNT, AUTOMATED 166 10^3/uL (150-450); RED BLOOD COUNT 3.66 10^6/uL (4.00-5.40); WHITE BLOOD COUNT 10.1 10^3/uL (4.0-10.0)
[2022-11-22] MEDS ORDERED: METHADONE 10MG TAB PO ONE (09:50)
[2022-11-22 10:00] VITALS: BP 119/73
[2022-11-22 10:00] LABS: VANCOMYCIN LEVEL TROUGH 15.3 UG/ML (10.0-20.0)
[2022-11-22 10:01] LABS: BLOOD UREA NITROGEN 16 MG/DL (9-23); CALCIUM LEVEL 8.1 MG/DL (8.5-10.1); CARBON DIOXIDE LEVEL 29 MMOL/L (20-31); CHLORIDE LEVEL 104 MMOL/L (98-107); CREATININE FOR GFR 0.79 MG/DL (0.55-1.30); GLOMERULAR FILTRATION RATE > 60.0 (>60); GLUCOSE, FASTING 105 MG/DL (60-100); SODIUM LEVEL 138 MMOL/L (136-145)
[2022-11-22] MEDS ORDERED: VANCOMYCIN HCL 500 MG in D5W MINI-BAG PLUS 100 ML IV ONE (11:00)
[2022-11-22] MEDS: ENOXAPARIN 40MG/0.4ML SYRINGE (J1650 PER 10MG) SC SCH (11:03)
[2022-11-22 14:00] VITALS: BP 128/88
[2022-11-22 20:30] VITALS: BP 128/88
[2022-11-22 21:00] LABS: HEPATITIS B SURFACE ANTIGEN NEGATIVE (NEGATIVE)
[2022-11-22 21:13] LABS: HIV 1&2 SCREEN ATELLICA NEGATIVE (NEGATIVE)
[2022-11-22 21:20] LABS: HEPATITIS B CORE ANTIBODY IGM NEGATIVE (NEGATIVE)
[2022-11-22 21:24] LABS: HEPATITIS C VIRUS ABY INDEX > 11.0 INDEX (<0.8)
[2022-11-22] MEDS: VANCOMYCIN HCL 750 MG, VIAL MATE ADAPTER 1 EACH in D5W 250 ML IV SCH (21:25)
[2022-11-22] MEDS: VANCOMYCIN HCL 500 MG in D5W MINI-BAG PLUS 100 ML IV SCH (22:37)
[2022-11-23] VITALS (7 sets, daily range): BP systolic 112–163; BP diastolic 73–101
[2022-11-23] MEDS: ACETAMINOPHEN 500 MG TAB PO SCH ×3 (05:16→17:46)
[2022-11-23 06:48] LABS: BLOOD UREA NITROGEN 16 MG/DL (9-23); CALCIUM LEVEL 8.6 MG/DL (8.5-10.1); CARBON DIOXIDE LEVEL 27 MMOL/L (20-31); CHLORIDE LEVEL 105 MMOL/L (98-107); CREATININE FOR GFR 0.65 MG/DL (0.55-1.30); GLOMERULAR FILTRATION RATE > 60.0 (>60); GLUCOSE, FASTING 77 MG/DL (60-100); POTASSIUM SERUM 4.1 MMOL/L (3.5-5.1); SODIUM LEVEL 139 MMOL/L (136-145)
[2022-11-23] MEDS: METHADONE 10MG TAB PO SCH (08:29)
[2022-11-23] MEDS: MORPHINE 4 MG/ML 1ML VIAL IV PRN ×3 (08:30→23:12)
[2022-11-23] MEDS: ENOXAPARIN 40MG/0.4ML SYRINGE (J1650 PER 10MG) SC SCH (08:30)
[2022-11-23] MEDS ORDERED: LR 1,000 ML IV SCH ×2 (08:40→21:25)
[2022-11-23 09:24] LABS: BASO % 0.1 % (0.0-1.0); EOS # 0.1 10^3/uL (0.0-0.5); HEMOGLOBIN 10.4 g/dl (12.0-15.5); LYMPH # 2.3 10^3/uL (1.5-5.0); LYMPH % 27.8 % (24.0-44.0); MEAN CORPUSCULAR HEMOGLOBIN 28.7 pg (27.0-33.0); MEAN CORPUSCULAR HGB CONC 31.5 g/dl (32.0-36.5); MEAN CORPUSCULAR VOLUME 90.9 fl (80.0-96.0); MONO # 0.5 10^3/uL (0.0-0.8); MONO % 6.3 % (2.0-8.0); NEUTROPHILS # 5.3 10^3/uL (1.5-8.5); NEUTROPHILS % 64.3 % (36.0-66.0); PLATELET COUNT, AUTOMATED 163 10^3/uL (150-450); RED BLOOD COUNT 3.63 10^6/uL (4.00-5.40); WHITE BLOOD COUNT 8.2 10^3/uL (4.0-10.0)
[2022-11-23 09:29] LABS: ERYTHROCYTE SEDIMENTATION RATE 91 mm/hr (0-20)
[2022-11-23] MEDS: VANCOMYCIN HCL 750 MG, VIAL MATE ADAPTER 1 EACH in D5W 250 ML IV SCH ×2 (10:09→23:05)
[2022-11-23] MEDS: VANCOMYCIN HCL 500 MG in D5W MINI-BAG PLUS 100 ML IV SCH (11:53)
[2022-11-23] MEDS: KETOROLAC 30 MG/ML 1ML VIAL IV PRN (13:30)
[2022-11-23] MEDS ORDERED: KETOROLAC 60MG 2ML VIAL As Ordered ONE (19:19)
[2022-11-23] MEDS ORDERED: propofoL 200 MG/20 ML VIAL As Ordered ONE (19:19)
[2022-11-23] MEDS ORDERED: LIDOCAINE 2% 100MG/5ML SDV (FOR ANES.) As Ordered ONE (19:19)
[2022-11-23] MEDS ORDERED: ONDANSETRON 4MG 2ML VIAL As Ordered ONE (19:19)
[2022-11-23] MEDS ORDERED: MIDAZOLAM INJ 2MG/2ML VIAL As Ordered ONE (19:19)
[2022-11-23] MEDS ORDERED: fentaNYL 100 MCG/2 ML INJECTION As Ordered ONE (19:19)
[2022-11-23] MEDS ORDERED: LIDOCAINE 1% SDV 30ML VIAL As Ordered ONE (20:06)
[2022-11-23] MEDS ORDERED: BUPIVACAINE HCL 0.25% 30ML VIAL As Ordered ONE (20:06)
[2022-11-23] MEDS ORDERED: ATROPINE SULF 1MG/10ML SYRINGE As Ordered ONE (21:00)
[2022-11-23] MEDS ORDERED: ONDANSETRON 4MG 2ML VIAL IV PRN (21:25)
[2022-11-23] MEDS ORDERED: oxyCODONE 5MG TAB PO PRN (21:25)
[2022-11-23] MEDS: HYDROMORPHONE HCL 0.5 MG/ 0.5 ML SYRINGE IV PRN ×4 (21:34→21:52)
[2022-11-23] MEDS: fentaNYL 100 MCG/2 ML INJECTION IV PRN ×4 (21:58→22:15)
[2022-11-24] VITALS (7 sets, daily range): BP systolic 121–152; BP diastolic 70–98
[2022-11-24] MEDS: VANCOMYCIN HCL 500 MG in D5W MINI-BAG PLUS 100 ML IV SCH (00:20)
[2022-11-24] MEDS: ACETAMINOPHEN 500 MG TAB PO SCH ×4 (00:21→17:39)
[2022-11-24] MEDS: METHADONE 10MG TAB PO SCH (08:39)
[2022-11-24] MEDS: ENOXAPARIN 40MG/0.4ML SYRINGE (J1650 PER 10MG) SC SCH (08:40)
[2022-11-24] MEDS: MIRALAX *UNIT DOSE* 17GM PACKET PO SCH (08:40)
[2022-11-24] MEDS: KETOROLAC 30 MG/ML 1ML VIAL IV PRN ×3 (08:54→22:03)
[2022-11-24] MEDS: MORPHINE 4 MG/ML 1ML VIAL IV PRN (08:54)
[2022-11-24 09:51] LABS: HEMATOCRIT 35.7 % (36.0-47.0); HEMOGLOBIN 11.8 g/dl (12.0-15.5); MEAN CORPUSCULAR HEMOGLOBIN 28.8 pg (27.0-33.0); MEAN CORPUSCULAR HGB CONC 33.1 g/dl (32.0-36.5); MEAN CORPUSCULAR VOLUME 87.1 fl (80.0-96.0); WHITE BLOOD COUNT 7.1 10^3/uL (4.0-10.0)
[2022-11-24 10:07] LABS: LYMPHOCYTES 29 % (16-44); MONOCYTES 1 % (0-5); NEUTROPHILS 70 % (28-66)
[2022-11-24 10:08] LABS: PLATELET CLUMPS SMALL AMT
[2022-11-24 10:09] LABS: PLATELET ESTIMATE NORMAL (NORMAL)
[2022-11-24] MEDS: VANCOMYCIN HCL 750 MG, VIAL MATE ADAPTER 1 EACH in D5W 250 ML IV SCH (10:21)
[2022-11-24 11:11] LABS: VANCOMYCIN LEVEL TROUGH 19.2 UG/ML (10.0-20.0)
[2022-11-24 11:12] LABS: BLOOD UREA NITROGEN 14 MG/DL (9-23); CALCIUM LEVEL 8.6 MG/DL (8.5-10.1); CARBON DIOXIDE LEVEL 24 MMOL/L (20-31); CHLORIDE LEVEL 103 MMOL/L (98-107); GLOMERULAR FILTRATION RATE > 60.0 (>60); GLUCOSE, FASTING 108 MG/DL (60-100); POTASSIUM SERUM 4.8 MMOL/L (3.5-5.1); SODIUM LEVEL 137 MMOL/L (136-145)
[2022-11-24] MEDS: oxyCODONE 5MG TAB PO PRN ×2 (13:56→19:52)
[2022-11-24] MEDS: VANCOMYCIN HCL 1,000 MG, VIAL MATE ADAPTER 1 EACH in D5W 250 ML IV SCH (21:01)
[2022-11-25] VITALS (7 sets, daily range): BP systolic 118–160; BP diastolic 62–90
[2022-11-25] MEDS: ACETAMINOPHEN 500 MG TAB PO SCH ×5 (00:09→23:58)
[2022-11-25] MEDS: KETOROLAC 30 MG/ML 1ML VIAL IV PRN ×2 (05:33→23:59)
[2022-11-25] MEDS: METHADONE 10MG TAB PO SCH (08:48)
[2022-11-25] MEDS: oxyCODONE 5MG TAB PO PRN ×2 (08:49→17:54)
[2022-11-25] MEDS: MIRALAX *UNIT DOSE* 17GM PACKET PO SCH (08:50)
[2022-11-25] MEDS: VANCOMYCIN HCL 1,000 MG, VIAL MATE ADAPTER 1 EACH in D5W 250 ML IV SCH ×2 (08:50→21:00)
[2022-11-25] MEDS: ENOXAPARIN 40MG/0.4ML SYRINGE (J1650 PER 10MG) SC SCH (08:51)
[2022-11-25] MEDS ORDERED: MORPHINE 4 MG/ML 1ML VIAL IV ONE (10:15)
[2022-11-25] MEDS ORDERED: LR 1,000 ML IV ONE (10:55)
[2022-11-25 14:35] LABS: BASO % 0.6 % (0.0-1.0); HEMATOCRIT 33.6 % (36.0-47.0); HEMOGLOBIN 11.2 g/dl (12.0-15.5); LYMPH # 1.9 10^3/uL (1.5-5.0); LYMPH % 27.4 % (24.0-44.0); MEAN CORPUSCULAR HEMOGLOBIN 29.2 pg (27.0-33.0); MEAN CORPUSCULAR HGB CONC 33.3 g/dl (32.0-36.5); MEAN CORPUSCULAR VOLUME 87.5 fl (80.0-96.0); MONO # 0.5 10^3/uL (0.0-0.8); MONO % 6.8 % (2.0-8.0); NEUTROPHILS # 4.1 10^3/uL (1.5-8.5); NEUTROPHILS % 60.9 % (36.0-66.0); PLATELET COUNT, AUTOMATED 227 10^3/uL (150-450); RED BLOOD COUNT 3.84 10^6/uL (4.00-5.40); WHITE BLOOD COUNT 6.8 10^3/uL (4.0-10.0)
[2022-11-25 14:56] LABS: BLOOD UREA NITROGEN 20 MG/DL (9-23); CALCIUM LEVEL 8.2 MG/DL (8.5-10.1); CARBON DIOXIDE LEVEL 30 MMOL/L (20-31); CHLORIDE LEVEL 105 MMOL/L (98-107); CREATININE FOR GFR 0.72 MG/DL (0.55-1.30); GLOMERULAR FILTRATION RATE > 60.0 (>60); GLUCOSE, FASTING 134 MG/DL (60-100); POTASSIUM SERUM 4.1 MMOL/L (3.5-5.1); SODIUM LEVEL 140 MMOL/L (136-145)
[2022-11-25 15:00] LABS: THYROID STIMULATING HORMONE 2.371 uIU/ML (0.55-4.78)
[2022-11-25 15:02] LABS: ERYTHROCYTE SEDIMENTATION RATE 73 mm/hr (0-20)
[2022-11-26 00:22] VITALS: BP 160/90
[2022-11-26 04:34] VITALS: BP 123/63
[2022-11-26] MEDS: ACETAMINOPHEN 500 MG TAB PO SCH ×4 (06:04→23:51)
[2022-11-26 07:14] LABS: BASO % 0.7 % (0.0-1.0); EOS % 0.2 % (0.0-3.0); HEMOGLOBIN 10.1 g/dl (12.0-15.5); LYMPH # 2.1 10^3/uL (1.5-5.0); LYMPH % 38.2 % (24.0-44.0); MEAN CORPUSCULAR HEMOGLOBIN 28.4 pg (27.0-33.0); MEAN CORPUSCULAR HGB CONC 32.6 g/dl (32.0-36.5); MEAN CORPUSCULAR VOLUME 87.1 fl (80.0-96.0); MONO # 0.5 10^3/uL (0.0-0.8); MONO % 10.1 % (2.0-8.0); NEUTROPHILS # 2.6 10^3/uL (1.5-8.5); NEUTROPHILS % 47.6 % (36.0-66.0); PLATELET COUNT, AUTOMATED 191 10^3/uL (150-450); RED BLOOD COUNT 3.56 10^6/uL (4.00-5.40); WHITE BLOOD COUNT 5.4 10^3/uL (4.0-10.0)
[2022-11-26 07:46] VITALS: BP 152/64
[2022-11-26 07:46] LABS: BLOOD UREA NITROGEN 15 MG/DL (9-23); CALCIUM LEVEL 8.2 MG/DL (8.5-10.1); CARBON DIOXIDE LEVEL 28 MMOL/L (20-31); CHLORIDE LEVEL 107 MMOL/L (98-107); CREATININE FOR GFR 0.68 MG/DL (0.55-1.30); GLOMERULAR FILTRATION RATE > 60.0 (>60); GLUCOSE, FASTING 94 MG/DL (60-100); POTASSIUM SERUM 3.8 MMOL/L (3.5-5.1); SODIUM LEVEL 141 MMOL/L (136-145)
[2022-11-26] MEDS ORDERED: VANCOMYCIN HCL 750 MG, VIAL MATE ADAPTER 1 EACH in D5W 250 ML IV SCH (08:00)
[2022-11-26] MEDS ORDERED: VANCOMYCIN HCL 1,000 MG, VIAL MATE ADAPTER 1 EACH in D5W 250 ML IV ONE (08:00)
[2022-11-26] MEDS: METHADONE 10MG TAB PO SCH (08:28)
[2022-11-26] MEDS: KETOROLAC 30 MG/ML 1ML VIAL IV PRN ×2 (08:28→16:21)
[2022-11-26] MEDS: ENOXAPARIN 40MG/0.4ML SYRINGE (J1650 PER 10MG) SC SCH (08:29)
[2022-11-26] MEDS: MIRALAX *UNIT DOSE* 17GM PACKET PO SCH (09:00)
[2022-11-26 12:00] VITALS: BP 148/66
[2022-11-26] MEDS: oxyCODONE 5MG TAB PO PRN ×2 (12:12→21:13)
[2022-11-26] MEDS: VANCOMYCIN HCL 750 MG, VIAL MATE ADAPTER 1 EACH in D5W 250 ML IV SCH ×2 (14:32→21:06)
[2022-11-26 16:04] VITALS: BP 154/54
[2022-11-26 19:48] VITALS: BP 137/77
[2022-11-27] VITALS (8 sets, daily range): BP systolic 128–166; BP diastolic 67–98
[2022-11-27] MEDS: oxyCODONE 5MG TAB PO PRN ×2 (01:11→09:23)
[2022-11-27 05:49] LABS: BASO % 0.7 % (0.0-1.0); EOS % 0.7 % (0.0-3.0); HEMOGLOBIN 9.8 g/dl (12.0-15.5); LYMPH # 2.2 10^3/uL (1.5-5.0); MEAN CORPUSCULAR HEMOGLOBIN 28.5 pg (27.0-33.0); MEAN CORPUSCULAR HGB CONC 32.7 g/dl (32.0-36.5); MEAN CORPUSCULAR VOLUME 87.2 fl (80.0-96.0); MONO # 0.6 10^3/uL (0.0-0.8); MONO % 9.9 % (2.0-8.0); NEUTROPHILS # 2.9 10^3/uL (1.5-8.5); NEUTROPHILS % 47.4 % (36.0-66.0); PLATELET COUNT, AUTOMATED 201 10^3/uL (150-450); RED BLOOD COUNT 3.44 10^6/uL (4.00-5.40); WHITE BLOOD COUNT 6.1 10^3/uL (4.0-10.0)
[2022-11-27 06:00] LABS: VANCOMYCIN LEVEL TROUGH 13.6 UG/ML (10.0-20.0)
[2022-11-27 06:01] LABS: BLOOD UREA NITROGEN 11 MG/DL (9-23); CARBON DIOXIDE LEVEL 28 MMOL/L (20-31); CHLORIDE LEVEL 108 MMOL/L (98-107); CREATININE FOR GFR 0.74 MG/DL (0.55-1.30); GLOMERULAR FILTRATION RATE > 60.0 (>60); GLUCOSE, FASTING 98 MG/DL (60-100); POTASSIUM SERUM 3.5 MMOL/L (3.5-5.1); SODIUM LEVEL 141 MMOL/L (136-145)
[2022-11-27] MEDS: VANCOMYCIN HCL 750 MG, VIAL MATE ADAPTER 1 EACH in D5W 250 ML IV SCH ×3 (06:12→21:23)
[2022-11-27 06:13] LABS: ERYTHROCYTE SEDIMENTATION RATE 30 mm/hr (0-20)
[2022-11-27] MEDS: ACETAMINOPHEN 500 MG TAB PO SCH ×4 (06:14→23:44)
[2022-11-27] MEDS: ENOXAPARIN 40MG/0.4ML SYRINGE (J1650 PER 10MG) SC SCH (09:00)
[2022-11-27] MEDS: MIRALAX *UNIT DOSE* 17GM PACKET PO SCH (09:00)
[2022-11-27] MEDS: METHADONE 10MG TAB PO SCH (09:22)
[2022-11-27] MEDS ORDERED: LIDOCAINE VISCOUS 2% SOLN 15ML UDC As Ordered ONE (19:39)
[2022-11-27] MEDS ORDERED: CETACAINE SPRAY 5GM As Ordered ONE (19:39)
[2022-11-27] MEDS ORDERED: LIDOCAINE 2% 100MG/5ML SDV (FOR ANES.) As Ordered ONE (20:19)
[2022-11-27] MEDS ORDERED: propofoL 200 MG/20 ML VIAL As Ordered ONE (20:19)
[2022-11-28] VITALS: BP 119/63
[2022-11-28 02:00] VITALS: BP 115/58
[2022-11-28 03:00] VITALS: BP 122/66
[2022-11-28 04:00] VITALS: BP 126/73
[2022-11-28] MEDS: VANCOMYCIN HCL 750 MG, VIAL MATE ADAPTER 1 EACH in D5W 250 ML IV SCH (05:54)
[2022-11-28] MEDS: ACETAMINOPHEN 500 MG TAB PO SCH ×2 (05:56→12:55)
[2022-11-28 07:48] VITALS: BP 138/72
[2022-11-28 08:04] LABS: BASO % 0.5 % (0.0-1.0); EOS % 0.6 % (0.0-3.0); HEMATOCRIT 30.6 % (36.0-47.0); HEMOGLOBIN 10.2 g/dl (12.0-15.5); LYMPH # 2.2 10^3/uL (1.5-5.0); LYMPH % 34.1 % (24.0-44.0); MEAN CORPUSCULAR HGB CONC 33.3 g/dl (32.0-36.5); MEAN CORPUSCULAR VOLUME 86.9 fl (80.0-96.0); MONO # 0.5 10^3/uL (0.0-0.8); MONO % 8.3 % (2.0-8.0); NEUTROPHILS # 3.4 10^3/uL (1.5-8.5); NEUTROPHILS % 53.7 % (36.0-66.0); PLATELET COUNT, AUTOMATED 231 10^3/uL (150-450); RED BLOOD COUNT 3.52 10^6/uL (4.00-5.40); WHITE BLOOD COUNT 6.4 10^3/uL (4.0-10.0)
[2022-11-28 08:28] LABS: BLOOD UREA NITROGEN 10 MG/DL (9-23); CALCIUM LEVEL 8.1 MG/DL (8.5-10.1); CARBON DIOXIDE LEVEL 30 MMOL/L (20-31); CHLORIDE LEVEL 106 MMOL/L (98-107); CREATININE FOR GFR 0.68 MG/DL (0.55-1.30); GLOMERULAR FILTRATION RATE > 60.0 (>60); GLUCOSE, FASTING 101 MG/DL (60-100); POTASSIUM SERUM 3.9 MMOL/L (3.5-5.1); SODIUM LEVEL 141 MMOL/L (136-145)
[2022-11-28] MEDS: METHADONE 10MG TAB PO SCH (08:32)
[2022-11-28] MEDS: MIRALAX *UNIT DOSE* 17GM PACKET PO SCH (08:32)
[2022-11-28] MEDS: ENOXAPARIN 40MG/0.4ML SYRINGE (J1650 PER 10MG) SC SCH (08:32)
[2022-11-28 12:58] VITALS: BP 136/78
[2022-11-28] MEDS ORDERED: BACT800T5 PO (14:14)
[2022-11-28] MEDS ORDERED: PROBCAP14 PO (14:14)
== END 2022-11-28 16:03 | disposition home or self-care (01) | DRG 383 ==
LOC: M ED 13:23 → EEVIPCON 16:31 → M ED INP 16:31 → M MSPAV 18:39 → M PCU 11-23 22:41
PROVIDERS: ADMIT Student in an Organized Health Care Education/Training Program; ATTEND Student in an Organized Health Care Education/Training Program
PROC: 0Y9M0ZZ Drainage of Right Foot, Open Approach (ICD-10-PCS; 2022-11-24)
PROC: 0HD5XZZ Extraction of Chest Skin, External Approach (ICD-10-PCS; 2022-11-24)
PROC: 0HDMXZZ Extraction of Right Foot Skin, External Approach (ICD-10-PCS; 2022-11-24)
PROC: B246ZZZ Ultrasonography of Right and Left Heart (ICD-10-PCS; principal; 2022-11-25)
DX: L02.213 Cutaneous abscess of chest wall (principal); I44.1 Atrioventricular block, second degree; F41.8 Other specified anxiety disorders; L02.611 Cutaneous abscess of right foot; F11.10 Opioid abuse, uncomplicated; B19.20 Unspecified viral hepatitis C without hepatic coma; R00.1 Bradycardia, unspecified; I45.9 Conduction disorder, unspecified; Z90.49 Acquired absence of other specified parts of digestive tract; F17.290 Nicotine dependence, other tobacco product, uncomplicated; L03.115 Cellulitis of right lower limb; Z88.0 Allergy status to penicillin; Z88.1 Allergy status to other antibiotic agents; Z88.2 Allergy status to sulfonamides; Z20.822 Contact with and (suspected) exposure to COVID-19

== ENCOUNTER 2023-01-05 14:40 | Emergency (ER) | payer OTHER ==
[~2023-01-05] VITALS: Ht 157.5 cm; Wt 67.8 kg
[~2023-01-05 14:40] MED LIST changes: +ACET-907 PO; +IBUP-1730 PO; +PROBCAP14 PO
[2023-01-05] MEDS ORDERED: CLINDAMYCIN 900 MG in IV 1 EA IV ONE (16:40)
[2023-01-05 17:45] LABS: BASO % 0.3 % (0.0-1.0); HEMATOCRIT 39.6 % (36.0-47.0); HEMOGLOBIN 12.9 g/dl (12.0-15.5); LYMPH # 1.7 10^3/uL (1.5-5.0); LYMPH % 17.7 % (24.0-44.0); MEAN CORPUSCULAR HEMOGLOBIN 28.5 pg (27.0-33.0); MEAN CORPUSCULAR HGB CONC 32.6 g/dl (32.0-36.5); MEAN CORPUSCULAR VOLUME 87.6 fl (80.0-96.0); MONO # 0.5 10^3/uL (0.0-0.8); MONO % 5.6 % (2.0-8.0); NEUTROPHILS # 7.4 10^3/uL (1.5-8.5); NEUTROPHILS % 76.2 % (36.0-66.0); PLATELET COUNT, AUTOMATED 178 10^3/uL (150-450); RED BLOOD COUNT 4.52 10^6/uL (4.00-5.40); WHITE BLOOD COUNT 9.7 10^3/uL (4.0-10.0)
[2023-01-05 17:57] LABS: ERYTHROCYTE SEDIMENTATION RATE 73 mm/hr (0-20)
[2023-01-05 18:11] LABS: BLOOD UREA NITROGEN 9 MG/DL (9-23); CALCIUM LEVEL 8.6 MG/DL (8.5-10.1); CARBON DIOXIDE LEVEL 28 MMOL/L (20-31); CHLORIDE LEVEL 98 MMOL/L (98-107); CREATININE FOR GFR 0.57 MG/DL (0.55-1.30); GLOMERULAR FILTRATION RATE > 60.0 (>60); GLUCOSE, FASTING 64 MG/DL (60-100); POTASSIUM SERUM 4.8 MMOL/L (3.5-5.1); SODIUM LEVEL 134 MMOL/L (136-145)
[2023-01-05 18:18] LABS: RSV AMPLIFICATION NEGATIVE (NEGATIVE)
[2023-01-05] MEDS ORDERED: CLEO300C2 PO ×2 (20:48→22:32)
[2023-01-05] MEDS ORDERED: ONDA4TAB6 PO ×2 (21:04→22:32)
[2023-01-05] MEDS ORDERED: ACETAMINOPHEN 500 MG TAB PO ONE (21:05)
[2023-01-05 22:05] VITALS: BP 141/73
== END 2023-01-05 22:30 | disposition home or self-care (01) ==
LOC: M ED 14:40
DX: S21.109A Unspecified open wound of unspecified front wall of thorax without penetration into thoracic cavity, initial encounter (principal); X58.XXXA Exposure to other specified factors, initial encounter; Y92.89 Other specified places as the place of occurrence of the external cause; Y93.89 Activity, other specified; Y99.8 Other external cause status; L66.2 Folliculitis decalvans; G43.909 Migraine, unspecified, not intractable, without status migrainosus; K21.9 Gastro-esophageal reflux disease without esophagitis; B19.20 Unspecified viral hepatitis C without hepatic coma; F17.200 Nicotine dependence, unspecified, uncomplicated; Z88.0 Allergy status to penicillin; Z88.6 Allergy status to analgesic agent; Z79.899 Other long term (current) drug therapy
CPT/HCPCS: 80048; 83605; 85025; 85652; 86140; 87040; 87070; 87077; 87186; 87631; 96365; 99284; S0077

== ENCOUNTER 2023-06-05 20:19 | Emergency (ER) | payer OTHER ==
[~2023-06-05] VITALS: Ht 157.5 cm; Wt 66.3 kg
[~2023-06-05 20:19] MED LIST changes: -CEFD300C41 PO; +CEFD300C42 PO; +ONDA4TAB6 PO
[2023-06-05 21:32] LABS: BASO % 0.4 % (0.0-1.0); EOS # 0.1 10^3/uL (0.0-0.5); EOS % 1.1 % (0.0-3.0); HEMOGLOBIN 10.2 g/dl (12.0-15.5); LYMPH % 41.8 % (24.0-44.0); MEAN CORPUSCULAR HEMOGLOBIN 28.6 pg (27.0-33.0); MEAN CORPUSCULAR HGB CONC 31.9 g/dl (32.0-36.5); MEAN CORPUSCULAR VOLUME 89.6 fl (80.0-96.0); MONO # 0.6 10^3/uL (0.0-0.8); MONO % 7.6 % (2.0-8.0); NEUTROPHILS # 3.6 10^3/uL (1.5-8.5); NEUTROPHILS % 48.8 % (36.0-66.0); PLATELET COUNT, AUTOMATED 173 10^3/uL (150-450); RED BLOOD COUNT 3.57 10^6/uL (4.00-5.40); WHITE BLOOD COUNT 7.3 10^3/uL (4.0-10.0)
[2023-06-05 21:46] LABS: ERYTHROCYTE SEDIMENTATION RATE 38 mm/hr (0-20)
[2023-06-05 21:56] LABS: LIPASE 25 U/L (12-53)
[2023-06-05 21:58] LABS: ALBUMIN 3.6 G/DL (3.2-5.2); ALKALINE PHOSPHATASE 87 U/L (46-116); ALT/SGPT 29 U/L (7.0-40); AST/SGOT 44 U/L (<34); BILIRUBIN,DIRECT 0.1 MG/DL (<0.4); BILIRUBIN,TOTAL 0.3 MG/DL (0.3-1.2); BLOOD UREA NITROGEN 8 MG/DL (9-23); CALCIUM LEVEL 8.9 MG/DL (8.5-10.1); CARBON DIOXIDE LEVEL 31 MMOL/L (20-31); CHLORIDE LEVEL 103 MMOL/L (98-107); CREATININE FOR GFR 0.71 MG/DL (0.55-1.30); GLOMERULAR FILTRATION RATE > 60.0 (>60); GLUCOSE, FASTING 63 MG/DL (60-100); SODIUM LEVEL 141 MMOL/L (136-145); TOTAL PROTEIN 7.6 G/DL (5.7-8.2)
[2023-06-05 23:26] VITALS: BP 110/59; TEMP 97.4; O2SAT 100
== END 2023-06-06 02:10 | disposition left against medical advice (07) ==
LOC: M ED 20:19
DX: Z53.21 Procedure and treatment not carried out due to patient leaving prior to being seen by health care provider (principal)

== ENCOUNTER 2023-08-24 15:48 | Inpatient (IN) | payer OTHER ==
[~2023-08-24] VITALS: Ht 157.5 cm; Wt 64.6 kg
[~2023-08-24 15:48] MED LIST changes: +CEFD1CAP9 PO; -CEFD300C42 PO; -EFFE150C2 PO; +EFFE150C3 PO
[2023-08-24] MEDS ORDERED: ACETAMINOPHEN TAB 650MG DOSE (2X325MG) PO SCH (18:00)
[2023-08-24 18:34] LABS: BASO % 0.3 % (0.0-1.0); EOS % 0.6 % (0.0-3.0); HEMATOCRIT 34.5 % (36.0-47.0); LYMPH # 2.6 10^3/uL (1.5-5.0); LYMPH % 37.4 % (24.0-44.0); MEAN CORPUSCULAR HEMOGLOBIN 28.3 pg (27.0-33.0); MEAN CORPUSCULAR HGB CONC 31.9 g/dl (32.0-36.5); MEAN CORPUSCULAR VOLUME 88.7 fl (80.0-96.0); MONO # 0.7 10^3/uL (0.0-0.8); MONO % 9.9 % (2.0-8.0); NEUTROPHILS # 3.6 10^3/uL (1.5-8.5); NEUTROPHILS % 51.5 % (36.0-66.0); PLATELET COUNT, AUTOMATED 476 10^3/uL (150-450); RED BLOOD COUNT 3.89 10^6/uL (4.00-5.40); WHITE BLOOD COUNT 6.9 10^3/uL (4.0-10.0)
[2023-08-24] MEDS ORDERED: VANCOMYCIN HCL 1,250 MG in NS 250 ML IV ONE (18:45)
[2023-08-24 18:47] LABS: ERYTHROCYTE SEDIMENTATION RATE > 130 mm/hr (0-20)
[2023-08-24] MEDS ORDERED: BOOSTRIX VACCINE (TETANUS/DIPHTH/ACEL. PERTUSSIS) 0.5ML SYR IM.IMMUN ONE (18:50)
[2023-08-24] MEDS ORDERED: VANCOMYCIN HCL 750 MG, VIAL MATE ADAPTER 1 EACH in D5W 250 ML IV ONE (19:00)
[2023-08-24] MEDS ORDERED: VANCOMYCIN HCL 500 MG in D5W MINI-BAG PLUS 100 ML IV ONE (19:00)
[2023-08-24 19:07] LABS: BLOOD UREA NITROGEN 6 MG/DL (9-23); CALCIUM LEVEL 8.7 MG/DL (8.5-10.1); CARBON DIOXIDE LEVEL 28 MMOL/L (20-31); CHLORIDE LEVEL 99 MMOL/L (98-107); CREATININE FOR GFR 0.57 MG/DL (0.55-1.30); GLOMERULAR FILTRATION RATE > 60.0 (>60); GLUCOSE, FASTING 74 MG/DL (60-100); SODIUM LEVEL 132 MMOL/L (136-145)
[2023-08-24 19:15] LABS: HCG, SERUM QUALITATIVE NEGATIVE (NEGATIVE)
[2023-08-24] MEDS ORDERED: MED REC IN PROGRESS XX SCH (19:20)
[2023-08-24] MEDS ORDERED: MOM 30ML SUSPENSION UDC PO PRN (20:20)
[2023-08-24] MEDS ORDERED: ACETAMINOPHEN TAB 650MG DOSE (2X325MG) PO PRN (20:20)
[2023-08-24] MEDS ORDERED: ACETAMINOPHEN 500 MG TAB PO ONE (21:00)
[2023-08-24] MEDS: DOCUSATE SODIUM 100MG CAPSULE PO SCH (21:14)
[2023-08-24] MEDS: KETOROLAC 30 MG/ML 1ML VIAL IV SCH (21:15)
[2023-08-24] MEDS: LR 1,000 ML IV SCH (21:16)
[2023-08-24 21:59] LABS: INR 1.13; PROTHROMBIN TIME 14.2 SECONDS (12.5-14.5)
[2023-08-24 22:01] LABS: BARBITURATES URINE NEGATIVE (NEGATIVE); BENZODIAZEPINES URINE NEGATIVE (NEGATIVE); COCAINE METABOLITE URINE NEGATIVE (NEGATIVE); OPIATES URINE NEGATIVE (NEGATIVE); PHENCYCLIDINE URINE NEGATIVE (NEGATIVE)
[2023-08-24 22:03] LABS: AMPHETAMINES LEVEL URINE POSITIVE (NEGATIVE); CANNABINOIDS URINE POSITIVE (NEGATIVE); METHADONE URINE POSITIVE (NEGATIVE)
[2023-08-24] MEDS ORDERED: HEPARIN SOD (PORCINE) 5000UNITS/ML 1ML VIAL/SYRINGE SC ONE (23:00)
[2023-08-24] MEDS: CEFTAROLINE FOSAMIL 600 MG in D5W MINI-BAG PLUS 50 ML IV SCH (23:06)
[2023-08-24] MEDS: ACETAMINOPHEN 500 MG TAB PO SCH (23:48)
[2023-08-25] MEDS: KETOROLAC 30 MG/ML 1ML VIAL IV SCH ×4 (02:48→20:15)
[2023-08-25] MEDS: ACETAMINOPHEN 500 MG TAB PO SCH ×4 (05:23→23:55)
[2023-08-25 08:39] LABS: HEMATOCRIT 32.6 % (36.0-47.0); HEMOGLOBIN 10.3 g/dl (12.0-15.5); MEAN CORPUSCULAR HEMOGLOBIN 28.3 pg (27.0-33.0); MEAN CORPUSCULAR HGB CONC 31.6 g/dl (32.0-36.5); MEAN CORPUSCULAR VOLUME 89.6 fl (80.0-96.0); PLATELET COUNT, AUTOMATED 393 10^3/uL (150-450); RED BLOOD COUNT 3.64 10^6/uL (4.00-5.40)
[2023-08-25 09:03] LABS: BLOOD UREA NITROGEN 9 MG/DL (9-23); CALCIUM LEVEL 8.5 MG/DL (8.5-10.1); CARBON DIOXIDE LEVEL 30 MMOL/L (20-31); CHLORIDE LEVEL 102 MMOL/L (98-107); CREATININE FOR GFR 0.68 MG/DL (0.55-1.30); GLOMERULAR FILTRATION RATE > 60.0 (>60); GLUCOSE, FASTING 79 MG/DL (60-100); POTASSIUM SERUM 4.3 MMOL/L (3.5-5.1); SODIUM LEVEL 137 MMOL/L (136-145)
[2023-08-25] MEDS: DOCUSATE SODIUM 100MG CAPSULE PO SCH ×2 (09:20→20:13)
[2023-08-25] MEDS ORDERED: HOME MED LIST COMPLETE! XX SCH (09:50)
[2023-08-25] MEDS: METHADONE 5MG TAB PO SCH (10:28)
[2023-08-25] MEDS: METHADONE 10MG TAB PO SCH (10:29)
[2023-08-25] MEDS: CEFTAROLINE FOSAMIL 600 MG in D5W MINI-BAG PLUS 50 ML IV SCH ×2 (11:17→21:47)
[2023-08-25] MEDS: LR 1,000 ML IV SCH ×2 (11:24→14:19)
[2023-08-25] MEDS ORDERED: ACETAMINOPHEN 1000MG 100ML IV BAG As Ordered ONE (12:07)
[2023-08-25] MEDS ORDERED: LIDOCAINE 2% 100MG/5ML SDV (FOR ANES.) As Ordered ONE (12:07)
[2023-08-25] MEDS ORDERED: propofoL 200 MG/20 ML VIAL As Ordered ONE (12:07)
[2023-08-25] MEDS ORDERED: dexmedeTOMIDine (4MCG/ML)200MCG/50ML BTL (PRECEDEX) As Ordered ONE (12:07)
[2023-08-25] MEDS ORDERED: MIDAZOLAM INJ 2MG/2ML VIAL As Ordered ONE (12:07)
[2023-08-25] MEDS ORDERED: ONDANSETRON 4MG 2ML VIAL As Ordered ONE (12:07)
[2023-08-25] MEDS ORDERED: fentaNYL 100 MCG/2 ML INJECTION As Ordered ONE (12:07)
[2023-08-25] MEDS ORDERED: KETOROLAC 60MG 2ML VIAL As Ordered ONE (12:08)
[2023-08-25] MEDS ORDERED: GLYCOPYRROLATE INJ 0.2 MG/ML 2 ML VIAL As Ordered ONE (13:18)
[2023-08-25] MEDS ORDERED: LIDOCAINE 1% SDV 30ML VIAL As Ordered ONE (13:20)
[2023-08-25] MEDS ORDERED: PHENYLephrine 500MCG 5ML (100MCG/ML) SYRINGE As Ordered ONE (13:25)
[2023-08-25] MEDS ORDERED: ePHEDrine SULFATE 25 MG/5 ML(5MG/ML) SYRINGE As Ordered ONE (13:25)
[2023-08-25] MEDS ORDERED: MEPERIDINE 25 MG/ML 1ML VIAL IV PRN (13:30)
[2023-08-25] MEDS ORDERED: oxyCODONE 5MG TAB PO PRN (13:30)
[2023-08-25] MEDS ORDERED: HYDROMORPHONE HCL 0.5 MG/ 0.5 ML SYRINGE IV PRN (13:30)
[2023-08-25] MEDS ORDERED: fentaNYL 100 MCG/2 ML INJECTION IV PRN (13:30)
[2023-08-25 14:30] VITALS: BP 120/74; TEMP 98.1; O2SAT 95
[2023-08-25 15:00] VITALS: BP 120/74; TEMP 97.9; O2SAT 95
[2023-08-25 15:30] VITALS: BP 122/70; TEMP 98.2; O2SAT 96
[2023-08-25 16:30] VITALS: BP 103/60; TEMP 98.2; O2SAT 92
[2023-08-25 21:00] VITALS: BP 96/48; TEMP 97.9; O2SAT 95
[2023-08-25 22:00] VITALS: BP 96/49; TEMP 98.1; O2SAT 94
[2023-08-26 02:00] VITALS: BP 99/49; TEMP 97.9; O2SAT 95
[2023-08-26 02:42] VITALS: BP 103/53; TEMP 97.7; O2SAT 96
[2023-08-26] MEDS: KETOROLAC 30 MG/ML 1ML VIAL IV SCH ×4 (02:48→20:58)
[2023-08-26] MEDS: ACETAMINOPHEN 500 MG TAB PO SCH ×3 (05:44→18:13)
[2023-08-26 05:55] VITALS: BP 107/58; TEMP 98.1; O2SAT 97
[2023-08-26 06:19] LABS: HEMATOCRIT 29.8 % (36.0-47.0); HEMOGLOBIN 9.5 g/dl (12.0-15.5); MEAN CORPUSCULAR HEMOGLOBIN 28.1 pg (27.0-33.0); MEAN CORPUSCULAR HGB CONC 31.9 g/dl (32.0-36.5); MEAN CORPUSCULAR VOLUME 88.2 fl (80.0-96.0); PLATELET COUNT, AUTOMATED 350 10^3/uL (150-450); RED BLOOD COUNT 3.38 10^6/uL (4.00-5.40)
[2023-08-26 06:49] LABS: BLOOD UREA NITROGEN 12 MG/DL (9-23); CALCIUM LEVEL 8.5 MG/DL (8.5-10.1); CARBON DIOXIDE LEVEL 31 MMOL/L (20-31); CHLORIDE LEVEL 101 MMOL/L (98-107); CREATININE FOR GFR 0.59 MG/DL (0.55-1.30); GLOMERULAR FILTRATION RATE > 60.0 (>60); GLUCOSE, FASTING 149 MG/DL (60-100); POTASSIUM SERUM 4.8 MMOL/L (3.5-5.1); SODIUM LEVEL 137 MMOL/L (136-145)
[2023-08-26 06:56] LABS: ERYTHROCYTE SEDIMENTATION RATE 58 mm/hr (0-20)
[2023-08-26 07:01] LABS: PROCALCITONIN <0.04 ng/ml
[2023-08-26] MEDS: METHADONE 10MG TAB PO SCH (09:02)
[2023-08-26] MEDS: METHADONE 5MG TAB PO SCH (09:02)
[2023-08-26] MEDS: DOCUSATE SODIUM 100MG CAPSULE PO SCH ×2 (09:02→20:57)
[2023-08-26 10:00] VITALS: BP 118/73; TEMP 98.2; O2SAT 96
[2023-08-26] MEDS: CEFTAROLINE FOSAMIL 600 MG in D5W MINI-BAG PLUS 50 ML IV SCH ×2 (11:02→22:42)
[2023-08-26 14:00] VITALS: BP 127/62; TEMP 98.1; O2SAT 97
[2023-08-26] MEDS ORDERED: MORPHINE 4 MG/ML 1ML VIAL IV ONE (16:25)
[2023-08-26 20:35] VITALS: BP 126/63; TEMP 98.1; O2SAT 96
[2023-08-27] MEDS: ACETAMINOPHEN 500 MG TAB PO SCH ×5 (00:30→23:50)
[2023-08-27 05:17] VITALS: BP 136/68; TEMP 97.5; O2SAT 97
[2023-08-27 06:09] LABS: HEMOGLOBIN 9.3 g/dl (12.0-15.5); MEAN CORPUSCULAR HEMOGLOBIN 27.9 pg (27.0-33.0); MEAN CORPUSCULAR VOLUME 93.1 fl (80.0-96.0); RED BLOOD COUNT 3.33 10^6/uL (4.00-5.40); WHITE BLOOD COUNT 3.8 10^3/uL (4.0-10.0)
[2023-08-27 06:13] LABS: PLATELET COUNT, AUTOMATED 161 10^3/uL (150-450)
[2023-08-27 06:14] LABS: BLOOD UREA NITROGEN 18 MG/DL (9-23); CALCIUM LEVEL 8.2 MG/DL (8.5-10.1); CARBON DIOXIDE LEVEL 29 MMOL/L (20-31); CHLORIDE LEVEL 104 MMOL/L (98-107); CREATININE FOR GFR 0.73 MG/DL (0.55-1.30); GLOMERULAR FILTRATION RATE > 60.0 (>60); GLUCOSE, FASTING 89 MG/DL (60-100); POTASSIUM SERUM 4.9 MMOL/L (3.5-5.1); SODIUM LEVEL 138 MMOL/L (136-145)
[2023-08-27] MEDS: KETOROLAC 30 MG/ML 1ML VIAL IV PRN ×3 (06:24→20:35)
[2023-08-27] MEDS ORDERED: MORPHINE 4 MG/ML 1ML VIAL IV PRN (07:05)
[2023-08-27] MEDS: DOCUSATE SODIUM 100MG CAPSULE PO SCH ×2 (09:00→20:35)
[2023-08-27] MEDS: METHADONE 10MG TAB PO SCH (09:20)
[2023-08-27] MEDS: METHADONE 5MG TAB PO SCH (09:20)
[2023-08-27] MEDS: CEFTAROLINE FOSAMIL 600 MG in D5W MINI-BAG PLUS 50 ML IV SCH ×2 (09:21→23:16)
[2023-08-27] MEDS: NICOTINE 21MG/24HR 1 EA TRANSDERMAL TD SCH (11:02)
[2023-08-27] MEDS ORDERED: PROBCAP14 PO (13:07)
[2023-08-27] MEDS ORDERED: CEFD1CAP9 PO (13:07)
[2023-08-27 14:00] VITALS: BP 144/87; TEMP 98.1; O2SAT 100
[2023-08-27 20:00] VITALS: BP 115/62; TEMP 97.7; O2SAT 98
[2023-08-28 06:00] VITALS: BP 132/66; TEMP 97.3; O2SAT 97
[2023-08-28] MEDS: ACETAMINOPHEN 500 MG TAB PO SCH ×2 (06:06→11:55)
[2023-08-28 06:30] LABS: HEMATOCRIT 32.8 % (36.0-47.0); HEMOGLOBIN 10.1 g/dl (12.0-15.5); MEAN CORPUSCULAR HEMOGLOBIN 27.6 pg (27.0-33.0); MEAN CORPUSCULAR HGB CONC 30.8 g/dl (32.0-36.5); MEAN CORPUSCULAR VOLUME 89.6 fl (80.0-96.0); PLATELET COUNT, AUTOMATED 427 10^3/uL (150-450); RED BLOOD COUNT 3.66 10^6/uL (4.00-5.40); WHITE BLOOD COUNT 3.9 10^3/uL (4.0-10.0)
[2023-08-28 06:51] LABS: BLOOD UREA NITROGEN 16 MG/DL (9-23); CALCIUM LEVEL 8.6 MG/DL (8.5-10.1); CARBON DIOXIDE LEVEL 31 MMOL/L (20-31); CHLORIDE LEVEL 105 MMOL/L (98-107); CREATININE FOR GFR 0.74 MG/DL (0.55-1.30); GLOMERULAR FILTRATION RATE > 60.0 (>60); GLUCOSE, FASTING 88 MG/DL (60-100); POTASSIUM SERUM 4.5 MMOL/L (3.5-5.1); SODIUM LEVEL 140 MMOL/L (136-145)
[2023-08-28] MEDS: NICOTINE 21MG/24HR 1 EA TRANSDERMAL TD SCH (08:22)
[2023-08-28] MEDS: KETOROLAC 30 MG/ML 1ML VIAL IV PRN (08:22)
[2023-08-28] MEDS: METHADONE 10MG TAB PO SCH (08:23)
[2023-08-28] MEDS: METHADONE 5MG TAB PO SCH (08:23)
[2023-08-28] MEDS: DOCUSATE SODIUM 100MG CAPSULE PO SCH (08:23)
[2023-08-28] MEDS ORDERED: CEFDINIR 300 MG CAP (OMNICEF) PO SCH (09:00)
[2023-08-28] MEDS ORDERED: CEFUROXIME 500 MG TAB PO SCH (09:00)
[2023-08-28] MEDS: CEFTAROLINE FOSAMIL 600 MG in D5W MINI-BAG PLUS 50 ML IV SCH (10:00)
== END 2023-08-28 12:55 | disposition home or self-care (01) | DRG 361 ==
LOC: M ED 15:48 → M ED INP 20:20 → M MSPAV 08-25 14:25
PROVIDERS: ADMIT Student in an Organized Health Care Education/Training Program; ATTEND Internal Medicine Nephrology
PROC: 0H9EXZZ Drainage of Left Lower Arm Skin, External Approach (ICD-10-PCS; 2023-08-25)
PROC: 0HBEXZZ Excision of Left Lower Arm Skin, External Approach (ICD-10-PCS; principal; 2023-08-25 11:43)
DX: L02.414 Cutaneous abscess of left upper limb (principal); I96 Gangrene, not elsewhere classified; F31.9 Bipolar disorder, unspecified; B19.20 Unspecified viral hepatitis C without hepatic coma; F41.9 Anxiety disorder, unspecified; Z90.49 Acquired absence of other specified parts of digestive tract; F17.290 Nicotine dependence, other tobacco product, uncomplicated; F15.10 Other stimulant abuse, uncomplicated; Z88.0 Allergy status to penicillin; Z88.6 Allergy status to analgesic agent; Z79.899 Other long term (current) drug therapy; L03.114 Cellulitis of left upper limb

== ENCOUNTER 2023-11-12 18:10 | Inpatient (IN) | payer MEDICAID, OTHER ==
[~2023-11-12] VITALS: Ht 157.5 cm; Wt 82.0 kg
[~2023-11-12 18:10] MED LIST changes: -DOXY150C3 PO; +DOXY150C5 PO
[2023-11-12 22:34] LABS: BASO % 0.1 % (0.0-1.0); EOS % 0.1 % (0.0-3.0); HEMATOCRIT 33.6 % (36.0-47.0); HEMOGLOBIN 10.5 g/dl (12.0-15.5); LYMPH # 1.1 10^3/uL (1.5-5.0); LYMPH % 12.8 % (24.0-44.0); MEAN CORPUSCULAR HEMOGLOBIN 28.4 pg (27.0-33.0); MEAN CORPUSCULAR HGB CONC 31.3 g/dl (32.0-36.5); MEAN CORPUSCULAR VOLUME 90.8 fl (80.0-96.0); MONO # 0.7 10^3/uL (0.0-0.8); MONO % 7.5 % (2.0-8.0); NEUTROPHILS % 79.3 % (36.0-66.0); PLATELET COUNT, AUTOMATED 143 10^3/uL (150-450); WHITE BLOOD COUNT 8.9 10^3/uL (4.0-10.0)
[2023-11-12 22:38] LABS: ERYTHROCYTE SEDIMENTATION RATE 40 mm/hr (0-20)
[2023-11-12] MEDS: ACETAMINOPHEN *IV* 1,000 MG in IV 1 EA IV ONE (22:45)
[2023-11-12 22:56] LABS: INR 1.06; PARTIAL THROMBOPLASTIN TIME 31.7 SECONDS (24.8-34.2); PROTHROMBIN TIME 13.5 SECONDS (12.5-14.5)
[2023-11-12 23:04] LABS: ALBUMIN 3.3 G/DL (3.2-5.2); ALKALINE PHOSPHATASE 124 U/L (46-116); ALT/SGPT 42 U/L (7.0-40); AST/SGOT 52 U/L (<34); BILIRUBIN,DIRECT 0.1 MG/DL (<0.4); BILIRUBIN,TOTAL 0.3 MG/DL (0.3-1.2); BLOOD UREA NITROGEN 15 MG/DL (9-23); CALCIUM LEVEL 8.6 MG/DL (8.5-10.1); CARBON DIOXIDE LEVEL 32 MMOL/L (20-31); CHLORIDE LEVEL 102 MMOL/L (98-107); CREATININE FOR GFR 0.68 MG/DL (0.55-1.30); GLOMERULAR FILTRATION RATE > 60.0 (>60); GLUCOSE, FASTING 92 MG/DL (60-100); POTASSIUM SERUM 3.7 MMOL/L (3.5-5.1); SODIUM LEVEL 139 MMOL/L (136-145); TOTAL PROTEIN 7.2 G/DL (5.7-8.2)
[2023-11-12] MEDS: CEFEPIME HCL 2 GM in D5W MINI-BAG PLUS 50 ML IV ONE (23:05)
[2023-11-12 23:11] LABS: PROCALCITONIN 0.23 ng/ml
[2023-11-12] MEDS ORDERED: RA M10TA PO (23:46)
[2023-11-13 01:29] LABS: MAGNESIUM LEVEL 1.5 MG/DL (1.8-2.4)
[2023-11-13 01:30] LABS: HEPATITIS B CORE ANTIBODY IGM NEGATIVE (NEGATIVE)
[2023-11-13] MEDS ORDERED: MOM 30ML SUSPENSION UDC PO PRN (01:30)
[2023-11-13] MEDS ORDERED: MAALOX 30 ML SUSP *UDC PO PRN (01:30)
[2023-11-13 01:45] LABS: HEPATITIS C VIRUS ABY INDEX > 11.00 INDEX (<0.8)
[2023-11-13] MEDS ORDERED: VANCOMYCIN HCL IV SCH (01:45)
[2023-11-13] MEDS ORDERED: FLUID PLACE HOLDER IV SCH (01:45)
[2023-11-13] MEDS: NS 1,000 ML IV ONE ×4 (02:06→16:24)
[2023-11-13] MEDS: LR 1,000 ML IV SCH (02:51)
[2023-11-13] MEDS: VANCOMYCIN HCL 750 MG, VIAL MATE ADAPTER 1 EACH in D5W 250 ML IV ONE ×2 (02:52→03:28)
[2023-11-13 06:34] LABS: HEMATOCRIT 31.5 % (36.0-47.0); HEMOGLOBIN 9.8 g/dl (12.0-15.5); MEAN CORPUSCULAR HEMOGLOBIN 28.5 pg (27.0-33.0); MEAN CORPUSCULAR HGB CONC 31.1 g/dl (32.0-36.5); MEAN CORPUSCULAR VOLUME 91.6 fl (80.0-96.0); PLATELET COUNT, AUTOMATED 101 10^3/uL (150-450); RED BLOOD COUNT 3.44 10^6/uL (4.00-5.40); WHITE BLOOD COUNT 8.4 10^3/uL (4.0-10.0)
[2023-11-13 06:42] LABS: APPEARANCE, URINE HAZY (CLEAR); BACTERIA, URINE AUTO NEGATIVE (NEGATIVE); BILIRUBIN, URINE AUTO NEGATIVE (NEGATIVE); BLOOD, URINE BLOOD 2+ (NEGATIVE); COLOR, URINE YELLOW (YELLOW); GLUCOSE, URINE (UA) AUTO NEGATIVE (NEGATIVE); KETONE, URINE AUTO NEGATIVE (NEGATIVE); LEUKOCYTE ESTERASE, URINE AUTO TRACE (NEGATIVE); NITRITE, URINE AUTO POSITIVE (NEGATIVE); PROTEIN, URINE AUTO NEGATIVE (NEGATIVE); RBC, URINE AUTO 2 /HPF (0-3); SQUAMOUS EPITHELIAL CELL UR AU 4 /HPF (0-6); WBC, URINE AUTO 11 /HPF (0-3)
[2023-11-13 06:51] LABS: ALBUMIN 2.7 G/DL (3.2-5.2); ALKALINE PHOSPHATASE 112 U/L (46-116); ALT/SGPT 37 U/L (7.0-40); AST/SGOT 46 U/L (<34); BILIRUBIN,TOTAL 0.5 MG/DL (0.3-1.2); BLOOD UREA NITROGEN 12 MG/DL (9-23); CALCIUM LEVEL 8.1 MG/DL (8.5-10.1); CARBON DIOXIDE LEVEL 30 MMOL/L (20-31); CHLORIDE LEVEL 103 MMOL/L (98-107); CREATININE FOR GFR 0.66 MG/DL (0.55-1.30); GLOMERULAR FILTRATION RATE > 60.0 (>60); GLUCOSE, FASTING 82 MG/DL (60-100); MAGNESIUM LEVEL 1.6 MG/DL (1.8-2.4); POTASSIUM SERUM 3.6 MMOL/L (3.5-5.1); SODIUM LEVEL 136 MMOL/L (136-145)
[2023-11-13 06:57] LABS: BARBITURATES URINE NEGATIVE (NEGATIVE)
[2023-11-13 06:58] LABS: PHENCYCLIDINE URINE NEGATIVE (NEGATIVE)
[2023-11-13 07:00] LABS: AMPHETAMINES LEVEL URINE POSITIVE (NEGATIVE); BENZODIAZEPINES URINE POSITIVE (NEGATIVE); CANNABINOIDS URINE POSITIVE (NEGATIVE); COCAINE METABOLITE URINE POSITIVE (NEGATIVE); METHADONE URINE POSITIVE (NEGATIVE); OPIATES URINE POSITIVE (NEGATIVE)
[2023-11-13] MEDS: ENOXAPARIN 40MG/0.4ML SYRINGE (J1650 PER 10MG) SC SCH (08:26)
[2023-11-13] MEDS: DOCUSATE SODIUM 100MG CAPSULE PO SCH (08:26)
[2023-11-13] MEDS ORDERED: HOME MED LIST COMPLETE! XX SCH (09:05)
[2023-11-13] MEDS ORDERED: ENTER DRUG NAME HERE (PATIENT'S OWN MED) PO PRN (09:25)
[2023-11-13] MEDS ORDERED: CEFEPIME HCL 2 GM in D5W MINI-BAG PLUS 50 ML IV SCH ×2 (11:00→12:00)
[2023-11-13] MEDS ORDERED: VANCOMYCIN HCL 1,000 MG, VIAL MATE ADAPTER 1 EACH in D5W 250 ML IV SCH (11:00)
[2023-11-13] MEDS: KETOROLAC 30 MG/ML 1ML VIAL IV ONE ×3 (11:24→20:47)
[2023-11-13] MEDS: MAG SULF 1GM/100ML (MAG RUN) 1 GM in IV 1 EA IV ONE (11:24)
[2023-11-13] MEDS ORDERED: ISOVUE-370 76% 100ML VIAL As Ordered ONE (11:24)
[2023-11-13] MEDS: LACTOBACILLUS ACIDOPHILUS CAP (BACID) PO SCH (11:27)
[2023-11-13] MEDS: METHADONE 10MG TAB PO SCH (11:27)
[2023-11-13 13:25] VITALS: BP 106/71; TEMP 97.9; O2SAT 97
[2023-11-13] MEDS: VANCOMYCIN HCL 750 MG, VIAL MATE ADAPTER 1 EACH in D5W 250 ML IV SCH (14:41)
[2023-11-13] MEDS: ACETAMINOPHEN TAB 650MG DOSE (2X325MG) PO PRN (15:24)
[2023-11-13] MEDS: cefTRIAXone SOD 2 GM in D5W MINI-BAG PLUS 50 ML IV SCH (15:51)
[2023-11-13 16:52] VITALS: O2SAT 98
[2023-11-13] MEDS: NS 1,000 ML IV SCH (17:18)
[2023-11-13 18:00] VITALS: BP 109/71; TEMP 97.9; O2SAT 97
[2023-11-13 20:50] VITALS: BP 111/72; TEMP 97.7; O2SAT 97
[2023-11-14] VITALS (8 sets, daily range): BP systolic 110–153; BP diastolic 71–101; TEMP 97.7–98.1; O2SAT 95–100
[2023-11-14] MEDS: KETOROLAC 30 MG/ML 1ML VIAL IV ONE ×2 (10:08→17:26)
[2023-11-14] MEDS: NS 1,000 ML IV ONE (10:11)
[2023-11-14 10:32] LABS: BASO % 0.2 % (0.0-1.0); HEMATOCRIT 32.1 % (36.0-47.0); HEMOGLOBIN 10.1 g/dl (12.0-15.5); LYMPH # 1.8 10^3/uL (1.5-5.0); LYMPH % 44.2 % (24.0-44.0); MEAN CORPUSCULAR HEMOGLOBIN 28.9 pg (27.0-33.0); MEAN CORPUSCULAR HGB CONC 31.5 g/dl (32.0-36.5); MEAN CORPUSCULAR VOLUME 91.7 fl (80.0-96.0); MONO # 0.4 10^3/uL (0.0-0.8); MONO % 9.3 % (2.0-8.0); NEUTROPHILS # 1.8 10^3/uL (1.5-8.5); NEUTROPHILS % 45.1 % (36.0-66.0); PLATELET COUNT, AUTOMATED 104 10^3/uL (150-450); WHITE BLOOD COUNT 4.1 10^3/uL (4.0-10.0)
[2023-11-14 10:47] LABS: ERYTHROCYTE SEDIMENTATION RATE 26 mm/hr (0-20)
[2023-11-14 10:59] LABS: VANCOMYCIN LEVEL TROUGH 14.5 UG/ML (10.0-20.0)
[2023-11-14 11:00] LABS: BLOOD UREA NITROGEN 11 MG/DL (9-23); CARBON DIOXIDE LEVEL 29 MMOL/L (20-31); CHLORIDE LEVEL 108 MMOL/L (98-107); CREATININE FOR GFR 0.64 MG/DL (0.55-1.30); GLOMERULAR FILTRATION RATE > 60.0 (>60); GLUCOSE, FASTING 103 MG/DL (60-100); POTASSIUM SERUM 3.9 MMOL/L (3.5-5.1); SODIUM LEVEL 141 MMOL/L (136-145)
[2023-11-14 11:08] LABS: PROCALCITONIN 0.17 ng/ml
[2023-11-14] MEDS: NS 0.45% 1,000 ML IV ONE (17:26)
[2023-11-14] MEDS ORDERED: traMADol 50 MG TAB PO PRN ×2 (18:00)
[2023-11-15] VITALS (7 sets, daily range): BP systolic 115–158; BP diastolic 67–95; TEMP 97.1–98; O2SAT 90–98
[2023-11-15] MEDS: MAG SULF 1GM/100ML (MAG RUN) 1 GM in IV 1 EA IV SCH (01:17)
[2023-11-15] MEDS: ATROPINE SULF 1MG/10ML SYRINGE IV STA (03:05)
[2023-11-15 06:31] LABS: BLOOD UREA NITROGEN 9 MG/DL (9-23); CALCIUM LEVEL 8.3 MG/DL (8.5-10.1); CARBON DIOXIDE LEVEL 25 MMOL/L (20-31); CHLORIDE LEVEL 108 MMOL/L (98-107); CREATININE FOR GFR 0.62 MG/DL (0.55-1.30); GLOMERULAR FILTRATION RATE > 60.0 (>60); GLUCOSE, FASTING 90 MG/DL (60-100); MAGNESIUM LEVEL 1.9 MG/DL (1.8-2.4); POTASSIUM SERUM 4.3 MMOL/L (3.5-5.1); SODIUM LEVEL 140 MMOL/L (136-145)
[2023-11-15 06:36] LABS: FREE T4 0.84 NG/DL (0.89-1.76); THYROID STIMULATING HORMONE 1.528 uIU/ML (0.55-4.78)
[2023-11-15 06:37] LABS: FREE T3 2.7 PG/ML (2.3-4.2)
[2023-11-15] MEDS: LEVOTHYROXINE 25MCG TABLET (0.025MG) PO SCH (07:54)
[2023-11-15] MEDS: KETOROLAC 30 MG/ML 1ML VIAL IV ONE ×2 (09:50→14:42)
[2023-11-15] MEDS ORDERED: VANCOMYCIN HCL 1,000 MG, VIAL MATE ADAPTER 1 EACH in D5W 250 ML IV SCH (12:25)
[2023-11-15 12:57] LABS: VANCOMYCIN RANDOM 7.4 UG/ML
[2023-11-15] MEDS: VANCOMYCIN HCL 1,000 MG, VIAL MATE ADAPTER 1 EACH in D5W 250 ML IV ONE (14:41)
[2023-11-15] MEDS ORDERED: PILL CUTTER 1 EACH XX PRN (16:20)
[2023-11-15 17:06] LABS: FREE T3 2.4 PG/ML (2.3-4.2)
[2023-11-15 17:07] LABS: THYROID STIMULATING HORMONE 1.515 uIU/ML (0.55-4.78)
[2023-11-15] MEDS: MUPIROCIN 2% OINT 22 GM TUBE TOP SCH (18:01)
[2023-11-15] MEDS: VANCOMYCIN HCL 750 MG, VIAL MATE ADAPTER 1 EACH in D5W 250 ML IV SCH (20:39)
[2023-11-16 04:08] VITALS: BP 122/62; TEMP 98; O2SAT 96
[2023-11-16 06:39] LABS: HEMATOCRIT 29.9 % (36.0-47.0); HEMOGLOBIN 9.5 g/dl (12.0-15.5); MEAN CORPUSCULAR HEMOGLOBIN 28.2 pg (27.0-33.0); MEAN CORPUSCULAR HGB CONC 31.8 g/dl (32.0-36.5); MEAN CORPUSCULAR VOLUME 88.7 fl (80.0-96.0); RED BLOOD COUNT 3.37 10^6/uL (4.00-5.40); WHITE BLOOD COUNT 4.2 10^3/uL (4.0-10.0)
[2023-11-16 07:39] VITALS: BP 144/85; O2SAT 100
[2023-11-16 07:58] LABS: BASO % 0.5 % (0.0-1.0); EOS # 0.1 10^3/uL (0.0-0.5); EOS % 1.3 % (0.0-3.0); LYMPH # 2.1 10^3/uL (1.5-5.0); LYMPH % 53.4 % (24.0-44.0); MONO # 0.3 10^3/uL (0.0-0.8); MONO % 8.1 % (2.0-8.0); NEUTROPHILS # 1.5 10^3/uL (1.5-8.5); NEUTROPHILS % 36.4 % (36.0-66.0)
[2023-11-16] MEDS: KETOROLAC 30 MG/ML 1ML VIAL IV ONE ×2 (08:11→14:38)
[2023-11-16] MEDS: METHADONE 10MG TAB PO SCH (08:12)
[2023-11-16 08:18] LABS: PLATELET COUNT, AUTOMATED 143 10^3/uL (150-450)
[2023-11-16 08:22] LABS: BLOOD UREA NITROGEN 13 MG/DL (9-23); CALCIUM LEVEL 8.1 MG/DL (8.5-10.1); CARBON DIOXIDE LEVEL 28 MMOL/L (20-31); CHLORIDE LEVEL 107 MMOL/L (98-107); CREATININE FOR GFR 0.72 MG/DL (0.55-1.30); GLOMERULAR FILTRATION RATE > 60.0 (>60); GLUCOSE, FASTING 102 MG/DL (60-100); POTASSIUM SERUM 3.7 MMOL/L (3.5-5.1); SODIUM LEVEL 138 MMOL/L (136-145)
[2023-11-16 08:34] LABS: PROCALCITONIN <0.04 ng/ml
[2023-11-16 12:30] LABS: ERYTHROCYTE SEDIMENTATION RATE 20 mm/hr (0-20)
[2023-11-16 16:05] VITALS: BP 153/90; TEMP 98.4; O2SAT 99
[2023-11-16] MEDS: NICOTINE POLACRILEX 2 MG GUM PO ONE (18:29)
[2023-11-16 19:35] VITALS: BP 146/68; TEMP 97.6; O2SAT 97
[2023-11-16] MEDS: NICOTINE 21MG/24HR 1 EA TRANSDERMAL TD SCH (20:35)
[2023-11-16 21:07] VITALS: BP 170/100; TEMP 97.5; O2SAT 99
[2023-11-16 21:26] VITALS: BP 150/80
[2023-11-17] VITALS: BP 113/69; TEMP 97.6; O2SAT 99
[2023-11-17 04:00] VITALS: BP 115/63; TEMP 97.6; O2SAT 92
[2023-11-17] MEDS: METHADONE 10MG TAB PO SCH (09:56)
[2023-11-17] MEDS: NICOTINE POLACRILEX 2 MG GUM PO PRN (09:56)
[2023-11-17 10:02] VITALS: BP 146/91; TEMP 97.5; O2SAT 99
== END 2023-11-17 10:37 | disposition left against medical advice (07) | DRG 720 ==
LOC: M ED 18:10 → M ED INP 23:58 → CANRESERV 11-13 00:37 → ENRESERV 11-13 00:37 → M MSPAV 11-13 13:18 → M PCU 11-15 01:18 → M MS4PR 11-16 21:06
PROVIDERS: ADMIT Internal Medicine; ATTEND General Practice
PROC: B246ZZZ Ultrasonography of Right and Left Heart (ICD-10-PCS; principal; 2023-11-15)
DX: A41.9 Sepsis, unspecified organism (principal); I27.20 Pulmonary hypertension, unspecified; I44.1 Atrioventricular block, second degree; F11.20 Opioid dependence, uncomplicated; L97.229 Non-pressure chronic ulcer of left calf with unspecified severity; E83.42 Hypomagnesemia; E83.51 Hypocalcemia; F11.10 Opioid abuse, uncomplicated; F41.9 Anxiety disorder, unspecified; F32.A Depression, unspecified; F15.10 Other stimulant abuse, uncomplicated; F60.3 Borderline personality disorder; B95.0 Streptococcus, group A, as the cause of diseases classified elsewhere; L03.116 Cellulitis of left lower limb; F17.290 Nicotine dependence, other tobacco product, uncomplicated; R01.1 Cardiac murmur, unspecified; B95.61 Methicillin susceptible Staphylococcus aureus infection as the cause of diseases classified elsewhere; G47.00 Insomnia, unspecified; B19.20 Unspecified viral hepatitis C without hepatic coma; L02.416 Cutaneous abscess of left lower limb; I08.0 Rheumatic disorders of both mitral and aortic valves; I45.19 Other right bundle-branch block; Z88.0 Allergy status to penicillin; Z88.6 Allergy status to analgesic agent

== ENCOUNTER 2024-04-05 18:58 | Inpatient (IN) | payer OTHER ==
[~2024-04-05] VITALS: Ht 157.5 cm; Wt 75.0 kg
[~2024-04-05 18:58] MED LIST changes: +ONDA-282 PO; -ONDA4TAB6 PO; +RA M10TA PO
[2024-04-05 21:18] LABS: BASO % 0.2 % (0.0-1.0); EOS # 0.1 10^3/uL (0.0-0.5); EOS % 0.7 % (0.0-3.0); HEMATOCRIT 35.2 % (36.0-47.0); HEMOGLOBIN 11.4 g/dl (12.0-15.5); LYMPH # 4.1 10^3/uL (1.5-5.0); LYMPH % 33.5 % (24.0-44.0); MEAN CORPUSCULAR HEMOGLOBIN 28.9 pg (27.0-33.0); MEAN CORPUSCULAR HGB CONC 32.4 g/dl (32.0-36.5); MEAN CORPUSCULAR VOLUME 89.3 fl (80.0-96.0); MONO # 1.1 10^3/uL (0.0-0.8); MONO % 9.1 % (2.0-8.0); NEUTROPHILS # 6.9 10^3/uL (1.5-8.5); NEUTROPHILS % 56.2 % (36.0-66.0); RED BLOOD COUNT 3.94 10^6/uL (4.00-5.40); WHITE BLOOD COUNT 12.2 10^3/uL (4.0-10.0)
[2024-04-05 21:27] LABS: ERYTHROCYTE SEDIMENTATION RATE 26 mm/hr (0-20)
[2024-04-05] MEDS: ACETAMINOPHEN 500 MG TAB PO ONE (21:36)
[2024-04-05] MEDS ORDERED: VANCOMYCIN HCL 1,500 MG in IV FLUID PLACE HOLDER 1 EA IV ONE (23:05)
[2024-04-05] MEDS ORDERED: TRAZ1TAB11 PO (23:46)
[2024-04-05] MEDS ORDERED: HYDR50TA70 PO (23:46)
[2024-04-05] MEDS ORDERED: DOCU100C16 PO (23:46)
[2024-04-05] MEDS ORDERED: NICO4LOZ32 BC (23:46)
[2024-04-05] MEDS ORDERED: HOME MED LIST COMPLETE! XX SCH (23:50)
[2024-04-06] MEDS: KETOROLAC 30 MG/ML 1ML VIAL IV ONE ×2 (00:16→20:16)
[2024-04-06] MEDS: VANCOMYCIN HCL 750 MG, VIAL MATE ADAPTER 1 EACH in D5W 250 ML IV ONE ×2 (00:17→02:09)
[2024-04-06] MEDS ORDERED: MOM 30ML SUSPENSION UDC PO PRN (00:25)
[2024-04-06 01:45] LABS: PROCALCITONIN <0.04 ng/ml
[2024-04-06] MEDS: ACETAMINOPHEN TAB 650MG DOSE (2X325MG) PO PRN (02:09)
[2024-04-06 02:18] LABS: INR 1.05; PARTIAL THROMBOPLASTIN TIME 35.8 SECONDS (24.8-34.2); PROTHROMBIN TIME 13.4 SECONDS (12.5-14.5)
[2024-04-06 04:39] LABS: ALBUMIN 3.2 G/DL (3.2-5.2); ALKALINE PHOSPHATASE 211 U/L (46-116); ALT/SGPT 138 U/L (7.0-40); AST/SGOT 110 U/L (<34); BILIRUBIN,TOTAL 0.6 MG/DL (0.3-1.2); BLOOD UREA NITROGEN 11 MG/DL (9-23); CALCIUM LEVEL 8.4 MG/DL (8.5-10.1); CARBON DIOXIDE LEVEL 28 MMOL/L (20-31); CHLORIDE LEVEL 104 MMOL/L (98-107); CREATININE FOR GFR 0.85 MG/DL (0.55-1.30); GLOMERULAR FILTRATION RATE > 60.0 (>60); GLUCOSE, FASTING 103 MG/DL (60-100); POTASSIUM SERUM 3.6 MMOL/L (3.5-5.1); SODIUM LEVEL 136 MMOL/L (136-145); TOTAL PROTEIN 6.8 G/DL (5.7-8.2)
[2024-04-06 07:22] LABS: BLOOD UREA NITROGEN 11 MG/DL (9-23); CALCIUM LEVEL 8.3 MG/DL (8.5-10.1); CARBON DIOXIDE LEVEL 28 MMOL/L (20-31); CHLORIDE LEVEL 102 MMOL/L (98-107); CREATININE FOR GFR 0.85 MG/DL (0.55-1.30); GLOMERULAR FILTRATION RATE > 60.0 (>60); GLUCOSE, FASTING 89 MG/DL (60-100); POTASSIUM SERUM 3.5 MMOL/L (3.5-5.1); SODIUM LEVEL 134 MMOL/L (136-145)
[2024-04-06] MEDS: VANCOMYCIN HCL 750 MG, VIAL MATE ADAPTER 1 EACH in D5W 250 ML IV SCH (08:06)
[2024-04-06] MEDS: VENLAFAXINE **XR** 75MG CAPSULE PO SCH (08:07)
[2024-04-06] MEDS: DOCUSATE SODIUM 100MG CAPSULE PO SCH (08:07)
[2024-04-06] MEDS ORDERED: VANCOMYCIN HCL 1,000 MG, VIAL MATE ADAPTER 1 EACH in NS 250 ML IV SCH (09:00)
[2024-04-06] MEDS ORDERED: METHADONE 10MG TAB PO SCH (09:00)
[2024-04-06 09:04] LABS: BASO % 0.2 % (0.0-1.0); EOS # 0.1 10^3/uL (0.0-0.5); HEMATOCRIT 35.2 % (36.0-47.0); HEMOGLOBIN 11.4 g/dl (12.0-15.5); LYMPH # 3.4 10^3/uL (1.5-5.0); LYMPH % 36.3 % (24.0-44.0); MEAN CORPUSCULAR HEMOGLOBIN 29.1 pg (27.0-33.0); MEAN CORPUSCULAR HGB CONC 32.4 g/dl (32.0-36.5); MEAN CORPUSCULAR VOLUME 89.8 fl (80.0-96.0); MONO # 0.9 10^3/uL (0.0-0.8); MONO % 9.9 % (2.0-8.0); NEUTROPHILS # 4.9 10^3/uL (1.5-8.5); NEUTROPHILS % 52.4 % (36.0-66.0); PLATELET COUNT, AUTOMATED 147 10^3/uL (150-450); RED BLOOD COUNT 3.92 10^6/uL (4.00-5.40); WHITE BLOOD COUNT 9.4 10^3/uL (4.0-10.0)
[2024-04-06] MEDS: hydrOXYzine 50 MG TAB PO PRN (10:10)
[2024-04-06] MEDS: NICOTINE 7 MG/24 HR TRANSDERMAL TD SCH (10:11)
[2024-04-06 12:00] LABS: MAGNESIUM LEVEL 1.9 MG/DL (1.8-2.4)
[2024-04-06] MEDS ORDERED: PILL CUTTER 1 EACH XX ONE (12:22)
[2024-04-06] MEDS: METHADONE 10MG TAB PO SCH (12:26)
[2024-04-06 15:00] VITALS: BP 114/61; TEMP 97.9; O2SAT 98
[2024-04-06] MEDS ORDERED: PILL CUTTER 1 EACH XX PRN (16:25)
[2024-04-06] MEDS: RIVAROXABAN 10MG TAB (XARELTO) PO SCH (18:00)
[2024-04-06 19:43] VITALS: BP 123/65; TEMP 97.7; O2SAT 99
[2024-04-06] MEDS: RAMELTEON 8 MG TAB (ROZEREM) PO PRN (22:16)
[2024-04-06] MEDS: traZODone 50 MG TAB PO PRN (22:16)
[2024-04-07 04:00] VITALS: BP 128/75; TEMP 97.2; O2SAT 96
[2024-04-07 06:02] LABS: BASO % 0.2 % (0.0-1.0); EOS # 0.1 10^3/uL (0.0-0.5); EOS % 1.2 % (0.0-3.0); HEMATOCRIT 30.1 % (36.0-47.0); HEMOGLOBIN 9.8 g/dl (12.0-15.5); LYMPH # 2.9 10^3/uL (1.5-5.0); LYMPH % 31.6 % (24.0-44.0); MEAN CORPUSCULAR HEMOGLOBIN 29.3 pg (27.0-33.0); MEAN CORPUSCULAR HGB CONC 32.6 g/dl (32.0-36.5); MEAN CORPUSCULAR VOLUME 89.9 fl (80.0-96.0); MONO # 0.9 10^3/uL (0.0-0.8); MONO % 9.7 % (2.0-8.0); NEUTROPHILS # 5.1 10^3/uL (1.5-8.5); PLATELET COUNT, AUTOMATED 153 10^3/uL (150-450); RED BLOOD COUNT 3.35 10^6/uL (4.00-5.40)
[2024-04-07 06:07] LABS: ERYTHROCYTE SEDIMENTATION RATE 60 mm/hr (0-20)
[2024-04-07 06:24] LABS: BLOOD UREA NITROGEN 10 MG/DL (9-23); CALCIUM LEVEL 8.4 MG/DL (8.5-10.1); CARBON DIOXIDE LEVEL 28 MMOL/L (20-31); CHLORIDE LEVEL 106 MMOL/L (98-107); CREATININE FOR GFR 0.74 MG/DL (0.55-1.30); GLOMERULAR FILTRATION RATE > 60.0 (>60); GLUCOSE, FASTING 105 MG/DL (60-100); POTASSIUM SERUM 3.8 MMOL/L (3.5-5.1); SODIUM LEVEL 137 MMOL/L (136-145)
[2024-04-07] MEDS: METHADONE 10MG TAB PO SCH (08:29)
[2024-04-07] MEDS ORDERED: PIPERACILLIN/TAZOBACTAM SOD 4.5 GM in D5W MINI-BAG PLUS 50 ML IV SCH ×2 (09:55→11:00)
[2024-04-07] MEDS: PIPERACILLIN/TAZOBACTAM SOD 4.5 GM in D5W MINI-BAG PLUS 50 ML IV SCH (11:19)
[2024-04-07 12:00] VITALS: BP 109/61; TEMP 97.7; O2SAT 96
[2024-04-07] MEDS: KETOROLAC 30 MG/ML 1ML VIAL IV PRN (14:13)
[2024-04-07] MEDS: NICOTINE POLACRILEX 2 MG GUM PO PRN (14:21)
[2024-04-07 17:32] LABS: HEPATITIS B SURFACE ANTIGEN NEGATIVE (NEGATIVE)
[2024-04-07 17:36] LABS: ALBUMIN 2.8 G/DL (3.2-5.2); ALKALINE PHOSPHATASE 193 U/L (46-116); ALT/SGPT 102 U/L (7.0-40); AST/SGOT 46 U/L (<34); BILIRUBIN,DIRECT 0.1 MG/DL (<0.4); BILIRUBIN,TOTAL 0.3 MG/DL (0.3-1.2); TOTAL PROTEIN 6.1 G/DL (5.7-8.2)
[2024-04-07] MEDS: SODIUM CHLORIDE 0.9% INJ 10 ML SYR IV SCH (18:53)
[2024-04-07 20:00] VITALS: BP 113/65; TEMP 97.5; O2SAT 98
[2024-04-08] MEDS: VANCOMYCIN HCL 1,000 MG, VIAL MATE ADAPTER 1 EACH in D5W 250 ML IV SCH (00:32)
[2024-04-08 04:00] VITALS: BP 111/66; TEMP 97.7; O2SAT 97
[2024-04-08 06:24] LABS: BASO % 0.1 % (0.0-1.0); EOS # 0.1 10^3/uL (0.0-0.5); HEMATOCRIT 28.4 % (36.0-47.0); LYMPH # 2.8 10^3/uL (1.5-5.0); LYMPH % 39.7 % (24.0-44.0); MEAN CORPUSCULAR HEMOGLOBIN 28.9 pg (27.0-33.0); MEAN CORPUSCULAR HGB CONC 31.7 g/dl (32.0-36.5); MEAN CORPUSCULAR VOLUME 91.3 fl (80.0-96.0); MONO # 0.6 10^3/uL (0.0-0.8); MONO % 9.1 % (2.0-8.0); NEUTROPHILS # 3.4 10^3/uL (1.5-8.5); NEUTROPHILS % 48.8 % (36.0-66.0); PLATELET COUNT, AUTOMATED 144 10^3/uL (150-450); RED BLOOD COUNT 3.11 10^6/uL (4.00-5.40)
[2024-04-08 09:11] LABS: BLOOD UREA NITROGEN 11 MG/DL (9-23); CALCIUM LEVEL 8.2 MG/DL (8.5-10.1); CARBON DIOXIDE LEVEL 32 MMOL/L (20-31); CHLORIDE LEVEL 107 MMOL/L (98-107); CREATININE FOR GFR 0.79 MG/DL (0.55-1.30); GLOMERULAR FILTRATION RATE > 60.0 (>60); GLUCOSE, FASTING 89 MG/DL (60-100); POTASSIUM SERUM 4.2 MMOL/L (3.5-5.1); SODIUM LEVEL 139 MMOL/L (136-145)
[2024-04-08] MEDS: LIDOCAINE W/EPINEPHRINE 1% 20ML VIAL SC ONE (11:00)
[2024-04-08 12:28] VITALS: BP 135/77; TEMP 97.9; O2SAT 97
[2024-04-08 20:00] VITALS: BP 102/63; TEMP 97.7; O2SAT 98
[2024-04-09 04:00] VITALS: BP 110/71; TEMP 97.3; O2SAT 97
[2024-04-09 06:00] LABS: BASO % 0.6 % (0.0-1.0); EOS # 0.1 10^3/uL (0.0-0.5); EOS % 2.2 % (0.0-3.0); HEMATOCRIT 27.2 % (36.0-47.0); HEMOGLOBIN 8.5 g/dl (12.0-15.5); LYMPH # 2.7 10^3/uL (1.5-5.0); LYMPH % 49.3 % (24.0-44.0); MEAN CORPUSCULAR HEMOGLOBIN 28.8 pg (27.0-33.0); MEAN CORPUSCULAR HGB CONC 31.3 g/dl (32.0-36.5); MEAN CORPUSCULAR VOLUME 92.2 fl (80.0-96.0); MONO # 0.5 10^3/uL (0.0-0.8); MONO % 9.4 % (2.0-8.0); NEUTROPHILS % 37.2 % (36.0-66.0); PLATELET COUNT, AUTOMATED 140 10^3/uL (150-450); RED BLOOD COUNT 2.95 10^6/uL (4.00-5.40); WHITE BLOOD COUNT 5.4 10^3/uL (4.0-10.0)
[2024-04-09 06:12] LABS: ERYTHROCYTE SEDIMENTATION RATE 60 mm/hr (0-20)
[2024-04-09 08:10] LABS: BLOOD UREA NITROGEN 13 MG/DL (9-23); CARBON DIOXIDE LEVEL 30 MMOL/L (20-31); CHLORIDE LEVEL 108 MMOL/L (98-107); CREATININE FOR GFR 0.77 MG/DL (0.55-1.30); GLOMERULAR FILTRATION RATE > 60.0 (>60); GLUCOSE, FASTING 92 MG/DL (60-100); POTASSIUM SERUM 4.2 MMOL/L (3.5-5.1); SODIUM LEVEL 141 MMOL/L (136-145)
[2024-04-09 12:00] VITALS: BP 125/71; TEMP 97.5; O2SAT 98
[2024-04-09 16:19] LABS: HEPATITIS A IgG TOTAL REACTIVE (NON-REACTIVE)
[2024-04-09] MEDS: VANCOMYCIN HCL 750 MG, VIAL MATE ADAPTER 1 EACH in D5W 250 ML IV SCH (18:43)
[2024-04-09 20:10] VITALS: BP 97/56; TEMP 97.7; O2SAT 97
[2024-04-10 04:30] VITALS: BP 125/77; TEMP 97.5; O2SAT 98
[2024-04-10] MEDS: SODIUM CHLORIDE 0.9% INJ 10 ML SYR IV PRN (08:39)
[2024-04-10 08:54] LABS: BASO % 0.4 % (0.0-1.0); EOS # 0.1 10^3/uL (0.0-0.5); EOS % 2.2 % (0.0-3.0); HEMATOCRIT 28.1 % (36.0-47.0); LYMPH # 2.5 10^3/uL (1.5-5.0); LYMPH % 54.7 % (24.0-44.0); MEAN CORPUSCULAR HEMOGLOBIN 29.3 pg (27.0-33.0); MEAN CORPUSCULAR VOLUME 91.5 fl (80.0-96.0); MONO # 0.4 10^3/uL (0.0-0.8); MONO % 8.8 % (2.0-8.0); NEUTROPHILS # 1.5 10^3/uL (1.5-8.5); NEUTROPHILS % 33.5 % (36.0-66.0); PLATELET COUNT, AUTOMATED 166 10^3/uL (150-450); RED BLOOD COUNT 3.07 10^6/uL (4.00-5.40); WHITE BLOOD COUNT 4.6 10^3/uL (4.0-10.0)
[2024-04-10 09:20] LABS: VANCOMYCIN LEVEL TROUGH 19.5 UG/ML (10.0-20.0)
[2024-04-10 09:21] LABS: ALBUMIN 2.8 G/DL (3.2-5.2); ALKALINE PHOSPHATASE 237 U/L (46-116); ALT/SGPT 87 U/L (7.0-40); AST/SGOT 66 U/L (<34); BILIRUBIN,DIRECT 0.2 MG/DL (<0.4); BILIRUBIN,TOTAL 0.3 MG/DL (0.3-1.2); BLOOD UREA NITROGEN 12 MG/DL (9-23); CALCIUM LEVEL 8.6 MG/DL (8.5-10.1); CARBON DIOXIDE LEVEL 30 MMOL/L (20-31); CHLORIDE LEVEL 106 MMOL/L (98-107); CREATININE FOR GFR 0.84 MG/DL (0.55-1.30); GLOMERULAR FILTRATION RATE > 60.0 (>60); GLUCOSE, FASTING 85 MG/DL (60-100); POTASSIUM SERUM 4.6 MMOL/L (3.5-5.1); SODIUM LEVEL 140 MMOL/L (136-145); TOTAL PROTEIN 6.3 G/DL (5.7-8.2)
[2024-04-10] MEDS: VANCOMYCIN HCL 1,000 MG, VIAL MATE ADAPTER 1 EACH in D5W 250 ML IV SCH (09:52)
[2024-04-10 12:00] VITALS: BP 106/53; TEMP 97.7; O2SAT 98
[2024-04-10] MEDS: MORPHINE 2 MG/ML 1ML VIAL IV ONE (13:26)
[2024-04-10 20:00] VITALS: BP 128/79; TEMP 97.9; O2SAT 100
[2024-04-11 03:30] VITALS: BP 120/63; TEMP 97.5; O2SAT 96
[2024-04-11 08:30] LABS: BASO % 0.7 % (0.0-1.0); EOS # 0.1 10^3/uL (0.0-0.5); EOS % 1.7 % (0.0-3.0); HEMATOCRIT 28.5 % (36.0-47.0); LYMPH # 2.2 10^3/uL (1.5-5.0); MEAN CORPUSCULAR HEMOGLOBIN 28.8 pg (27.0-33.0); MEAN CORPUSCULAR HGB CONC 31.6 g/dl (32.0-36.5); MEAN CORPUSCULAR VOLUME 91.3 fl (80.0-96.0); MONO # 0.3 10^3/uL (0.0-0.8); NEUTROPHILS # 1.4 10^3/uL (1.5-8.5); NEUTROPHILS % 34.4 % (36.0-66.0); PLATELET COUNT, AUTOMATED 169 10^3/uL (150-450); RED BLOOD COUNT 3.12 10^6/uL (4.00-5.40); WHITE BLOOD COUNT 4.2 10^3/uL (4.0-10.0)
[2024-04-11 08:55] LABS: BLOOD UREA NITROGEN 14 MG/DL (9-23); CALCIUM LEVEL 8.3 MG/DL (8.5-10.1); CARBON DIOXIDE LEVEL 31 MMOL/L (20-31); CHLORIDE LEVEL 106 MMOL/L (98-107); CREATININE FOR GFR 0.96 MG/DL (0.55-1.30); GLOMERULAR FILTRATION RATE > 60.0 (>60); GLUCOSE, FASTING 83 MG/DL (60-100); POTASSIUM SERUM 4.6 MMOL/L (3.5-5.1); SODIUM LEVEL 140 MMOL/L (136-145); VANCOMYCIN LEVEL TROUGH 17.1 UG/ML (10.0-20.0)
[2024-04-11 09:19] LABS: ERYTHROCYTE SEDIMENTATION RATE 50 mm/hr (0-20)
[2024-04-11 11:14] LABS: HCV RNA QUANTITATION <15 NOT DETECTED IU/mL (NOT DETECTED); HCV RNA log10 <1.18 NOT DETECTED Log IU/mL (NOT DETECTED)
[2024-04-11 12:00] VITALS: BP 119/71; TEMP 97.5; O2SAT 98
[2024-04-11 20:00] VITALS: BP 119/72; TEMP 97.7; O2SAT 97
[2024-04-12 04:00] VITALS: BP 126/74; TEMP 97.5; O2SAT 98
[2024-04-12 06:44] LABS: BASO % 0.4 % (0.0-1.0); EOS # 0.1 10^3/uL (0.0-0.5); EOS % 1.3 % (0.0-3.0); HEMATOCRIT 26.8 % (36.0-47.0); HEMOGLOBIN 8.5 g/dl (12.0-15.5); LYMPH # 3.3 10^3/uL (1.5-5.0); LYMPH % 61.5 % (24.0-44.0); MEAN CORPUSCULAR HEMOGLOBIN 29.4 pg (27.0-33.0); MEAN CORPUSCULAR HGB CONC 31.7 g/dl (32.0-36.5); MEAN CORPUSCULAR VOLUME 92.7 fl (80.0-96.0); MONO # 0.4 10^3/uL (0.0-0.8); MONO % 7.1 % (2.0-8.0); NEUTROPHILS # 1.5 10^3/uL (1.5-8.5); NEUTROPHILS % 28.4 % (36.0-66.0); PLATELET COUNT, AUTOMATED 162 10^3/uL (150-450); RED BLOOD COUNT 2.89 10^6/uL (4.00-5.40); WHITE BLOOD COUNT 5.3 10^3/uL (4.0-10.0)
[2024-04-12] MEDS ORDERED: DOXY-440 PO (10:06)
[2024-04-12] MEDS ORDERED: AUGM500T34 PO (10:06)
== END 2024-04-12 11:04 | disposition home or self-care (01) | DRG 383 ==
LOC: M ED 18:58 → M ED INP 04-06 00:21 → M MSPAV 04-06 15:01
PROVIDERS: ADMIT Student in an Organized Health Care Education/Training Program; ATTEND Internal Medicine Nephrology
PROC: B246ZZZ Ultrasonography of Right and Left Heart (ICD-10-PCS; 2024-04-07)
PROC: 0H9NXZZ Drainage of Left Foot Skin, External Approach (ICD-10-PCS; principal; 2024-04-09)
DX: L03.116 Cellulitis of left lower limb (principal); I27.20 Pulmonary hypertension, unspecified; I08.3 Combined rheumatic disorders of mitral, aortic and tricuspid valves; F41.9 Anxiety disorder, unspecified; F32.A Depression, unspecified; I45.19 Other right bundle-branch block; B19.20 Unspecified viral hepatitis C without hepatic coma; F19.11 Other psychoactive substance abuse, in remission; F17.290 Nicotine dependence, other tobacco product, uncomplicated; G47.00 Insomnia, unspecified; Z79.899 Other long term (current) drug therapy; Z88.6 Allergy status to analgesic agent; L02.612 Cutaneous abscess of left foot; Z88.0 Allergy status to penicillin; Z86.14 Personal history of Methicillin resistant Staphylococcus aureus infection

== ENCOUNTER → 2024-05-09 | Outpatient (CLI) | payer MEDICAID, OTHER ==
[~2024-05-09] MED LIST changes: +AUGM500T34 PO; +DOCU100C16 PO; +DOXY-440 PO; +HYDR50TA70 PO; +NICO4LOZ32 BC; +TRAZ1TAB11 PO
[2024-05-09 16:03] LABS: APPEARANCE, URINE CLEAR (CLEAR); BACTERIA, URINE AUTO NEGATIVE (NEGATIVE); BILIRUBIN, URINE AUTO NEGATIVE (NEGATIVE); BLOOD, URINE BLOOD NEGATIVE (NEGATIVE); COLOR, URINE YELLOW (YELLOW); GLUCOSE, URINE (UA) AUTO NEGATIVE (NEGATIVE); KETONE, URINE AUTO NEGATIVE (NEGATIVE); LEUKOCYTE ESTERASE, URINE AUTO NEGATIVE (NEGATIVE); NITRITE, URINE AUTO NEGATIVE (NEGATIVE); PROTEIN, URINE AUTO NEGATIVE (NEGATIVE); RBC, URINE AUTO 0 /HPF (0-3); SPECIFIC GRAVITY URINE AUTO 1.014 (1.002-1.035); SQUAMOUS EPITHELIAL CELL UR AU 3 /HPF (0-6); UROBILINOGEN, URINE AUTO 0.2 mg/dL (0.0-2.0); WBC, URINE AUTO 0 /HPF (0-3)
[2024-05-09 16:11] LABS: BASO % 0.5 % (0.0-1.0); EOS # 0.1 10^3/uL (0.0-0.5); EOS % 1.4 % (0.0-3.0); HEMATOCRIT 34.9 % (36.0-47.0); HEMOGLOBIN 11.1 g/dl (12.0-15.5); LYMPH # 3.7 10^3/uL (1.5-5.0); LYMPH % 66.3 % (24.0-44.0); MEAN CORPUSCULAR HEMOGLOBIN 29.1 pg (27.0-33.0); MEAN CORPUSCULAR HGB CONC 31.8 g/dl (32.0-36.5); MEAN CORPUSCULAR VOLUME 91.6 fl (80.0-96.0); MONO # 0.4 10^3/uL (0.0-0.8); MONO % 6.9 % (2.0-8.0); NEUTROPHILS # 1.4 10^3/uL (1.5-8.5); NEUTROPHILS % 24.7 % (36.0-66.0); PLATELET COUNT, AUTOMATED 130 10^3/uL (150-450); RED BLOOD COUNT 3.81 10^6/uL (4.00-5.40); WHITE BLOOD COUNT 5.6 10^3/uL (4.0-10.0)
[2024-05-09 16:22] LABS: HEMOGLOBIN A1c 4.8 % (4.0-6.0)
[2024-05-09 16:44] LABS: FREE T4 0.99 NG/DL (0.89-1.76)
[2024-05-09 16:45] LABS: ALBUMIN 3.8 G/DL (3.2-5.2); ALKALINE PHOSPHATASE 80 U/L (46-116); ALT/SGPT 29 U/L (7.0-40); AST/SGOT 37 U/L (<34); BILIRUBIN,TOTAL 0.2 MG/DL (0.3-1.2); BLOOD UREA NITROGEN 10 MG/DL (9-23); CALCIUM LEVEL 9.1 MG/DL (8.5-10.1); CARBON DIOXIDE LEVEL 29 MMOL/L (20-31); CHLORIDE LEVEL 106 MMOL/L (98-107); CHOLESTEROL LEVEL 180 MG/DL (<200); CREATININE FOR GFR 0.84 MG/DL (0.55-1.30); GLOMERULAR FILTRATION RATE > 60.0 (>60); GLUCOSE, FASTING 79 MG/DL (60-100); POTASSIUM SERUM 4.6 MMOL/L (3.5-5.1); SODIUM LEVEL 138 MMOL/L (136-145); TOTAL PROTEIN 7.6 G/DL (5.7-8.2); TRIGLYCERIDES LEVEL 173 MG/DL (<150)
[2024-05-09 16:46] LABS: HEPATITIS B SURFACE ANTIBODY POSITIVE (POSITIVE)
[2024-05-09 16:47] LABS: THYROID STIMULATING HORMONE 0.801 uIU/ML (0.55-4.78)
[2024-05-09 16:58] LABS: HEPATITIS B SURFACE ANTIGEN NEGATIVE (NEGATIVE)
[2024-05-09 17:11] LABS: HIV 1&2 SCREEN NEGATIVE (NEGATIVE)
[2024-05-09 17:21] LABS: VITAMIN B12 LEVEL 550 PG/ML (211-911)
[2024-05-09 17:59] LABS: HEPATITIS C VIRUS ABY INDEX > 11.00 INDEX (<0.8)
[2024-05-09 18:00] LABS: CHOLESTEROL RISK RATIO 3.83 (<5); HDL CHOLESTEROL 46.9 MG/DL (>40); LDL CHOLESTEROL 98.5 MG/DL (<100); NON-HDL-C 133.1 MG/DL
[2024-05-11 06:23] LABS: HEPATITIS B CORE ANTIBODY IGG REACTIVE (NON-REACTIVE)
[2024-05-11 06:43] LABS: HEPATITIS A IgG TOTAL REACTIVE (NON-REACTIVE)
== END ==
LOC: M PLALAB 12:20
PROVIDERS: ATTEND Nurse Practitioner Family
DX: B20 Human immunodeficiency virus [HIV] disease (principal); B15.9 Hepatitis A without hepatic coma; B19.10 Unspecified viral hepatitis B without hepatic coma; B19.20 Unspecified viral hepatitis C without hepatic coma

== ENCOUNTER 2024-07-15 13:58 | Emergency (ER) | payer MEDICAID, OTHER ==
[~2024-07-15] VITALS: Ht 157.5 cm; Wt 90.9 kg
[~2024-07-15 13:58] MED LIST changes: +GABA-1172 PO; -GABA-282 PO
[2024-07-15 14:48] LABS: BASO % 0.3 % (0.0-1.0); EOS # 0.1 10^3/uL (0.0-0.5); EOS % 0.9 % (0.0-3.0); HEMATOCRIT 33.6 % (36.0-47.0); HEMOGLOBIN 10.5 g/dl (12.0-15.5); LYMPH # 3.2 10^3/uL (1.5-5.0); LYMPH % 36.3 % (24.0-44.0); MEAN CORPUSCULAR HEMOGLOBIN 27.4 pg (27.0-33.0); MEAN CORPUSCULAR HGB CONC 31.3 g/dl (32.0-36.5); MEAN CORPUSCULAR VOLUME 87.7 fl (80.0-96.0); MONO # 0.7 10^3/uL (0.0-0.8); MONO % 7.9 % (2.0-8.0); NEUTROPHILS # 4.8 10^3/uL (1.5-8.5); NEUTROPHILS % 54.5 % (36.0-66.0); PLATELET COUNT, AUTOMATED 149 10^3/uL (150-450); RED BLOOD COUNT 3.83 10^6/uL (4.00-5.40); WHITE BLOOD COUNT 8.7 10^3/uL (4.0-10.0)
[2024-07-15 15:13] LABS: LIPASE 42 U/L (12-53)
[2024-07-15 15:16] LABS: ALBUMIN 3.5 G/DL (3.2-5.2); ALKALINE PHOSPHATASE 68 U/L (35-104); ALT/SGPT 31 U/L (7.0-40); AST/SGOT 39 U/L (<34); BILIRUBIN,DIRECT < 0.1 MG/DL (<0.4); BILIRUBIN,TOTAL 0.2 MG/DL (0.3-1.2); BLOOD UREA NITROGEN 9 MG/DL (9-23); CALCIUM LEVEL 8.9 MG/DL (8.5-10.1); CARBON DIOXIDE LEVEL 28 MMOL/L (20-31); CHLORIDE LEVEL 105 MMOL/L (98-107); CREATININE FOR GFR 0.78 MG/DL (0.55-1.30); GLOMERULAR FILTRATION RATE > 60.0 (>60); GLUCOSE, FASTING 101 MG/DL (60-100); POTASSIUM SERUM 4.1 MMOL/L (3.5-5.1); SODIUM LEVEL 140 MMOL/L (136-145); TOTAL PROTEIN 7.1 G/DL (5.7-8.2)
[2024-07-15] MEDS ORDERED: MIRA3350 PO (19:00)
[2024-07-15] MEDS: MAGNESIUM CITRATE 300ML BTL PO ONE (19:09)
[2024-07-15 19:10] VITALS: BP 117/71; TEMP 97.6; O2SAT 98
== END 2024-07-15 19:16 | disposition home or self-care (01) ==
LOC: M ED 13:58
DX: K59.00 Constipation, unspecified (principal); R10.84 Generalized abdominal pain; I10 Essential (primary) hypertension; B18.2 Chronic viral hepatitis C; F17.210 Nicotine dependence, cigarettes, uncomplicated; Z88.8 Allergy status to other drugs, medicaments and biological substances

== ENCOUNTER 2024-08-26 13:30 | Emergency (ER) | payer OTHER ==
[~2024-08-26] VITALS: Ht 157.5 cm; Wt 93.0 kg
[~2024-08-26 13:30] MED LIST changes: +MIRA3350 PO
[2024-08-26 14:36] LABS: BASO % 0.3 % (0.0-1.0); EOS % 0.4 % (0.0-3.0); HEMATOCRIT 33.6 % (36.0-47.0); HEMOGLOBIN 10.5 g/dl (12.0-15.5); LYMPH # 3.4 10^3/uL (1.5-5.0); LYMPH % 44.9 % (24.0-44.0); MEAN CORPUSCULAR HEMOGLOBIN 26.6 pg (27.0-33.0); MEAN CORPUSCULAR HGB CONC 31.3 g/dl (32.0-36.5); MEAN CORPUSCULAR VOLUME 85.1 fl (80.0-96.0); MONO # 0.5 10^3/uL (0.0-0.8); NEUTROPHILS # 3.6 10^3/uL (1.5-8.5); NEUTROPHILS % 47.1 % (36.0-66.0); PLATELET COUNT, AUTOMATED 159 10^3/uL (150-450); RED BLOOD COUNT 3.95 10^6/uL (4.00-5.40); WHITE BLOOD COUNT 7.7 10^3/uL (4.0-10.0)
[2024-08-26 14:50] LABS: KETONE, URINE AUTO RFX TRACE mg/dL (NEGATIVE); NITRITE, URINE AUTO RFX NEGATIVE (NEGATIVE); RBC, URINE AUTO RFX TNTC /HPF (0-3); SQUAM EPITHELIAL CELL UR AURFX 9 /HPF (0-6); WBC, URINE AUTO RFX 1 /HPF (0-3)
[2024-08-26 14:51] LABS: LEUKOCYTE ESTERASE UR AUTO RFX TRACE (NEGATIVE)
[2024-08-26 15:02] LABS: BLOOD UREA NITROGEN 10 MG/DL (9-23); CALCIUM LEVEL 8.9 MG/DL (8.5-10.1); CARBON DIOXIDE LEVEL 28 MMOL/L (20-31); CHLORIDE LEVEL 106 MMOL/L (98-107); CREATININE FOR GFR 0.76 MG/DL (0.55-1.30); GLOMERULAR FILTRATION RATE > 60.0 (>60); GLUCOSE, FASTING 86 MG/DL (60-100); POTASSIUM SERUM 4.5 MMOL/L (3.5-5.1); SODIUM LEVEL 138 MMOL/L (136-145)
[2024-08-26 16:41] LABS: HCG, SERUM QUALITATIVE NEGATIVE (NEGATIVE)
[2024-08-26] MEDS: KETOROLAC 30 MG/ML 1ML VIAL IM ONE (19:23)
[2024-08-26] MEDS: MORPHINE 10 MG/ML 1ML VIAL IM ONE (20:53)
[2024-08-26] MEDS ORDERED: ONDA-282 PO (22:22)
[2024-08-26] MEDS ORDERED: NAPR-837 PO (22:22)
[2024-08-26 22:31] VITALS: BP 117/59; TEMP 97.3; O2SAT 96
== END 2024-08-26 22:41 | disposition home or self-care (01) ==
LOC: M ED 13:30
DX: R10.31 Right lower quadrant pain (principal); F17.210 Nicotine dependence, cigarettes, uncomplicated; Z87.42 Personal history of other diseases of the female genital tract; Z88.8 Allergy status to other drugs, medicaments and biological substances; Z79.2 Long term (current) use of antibiotics; Z79.899 Other long term (current) drug therapy
CPT/HCPCS: 76830; 76856; 80048; 81001; 84703; 85025; 87086; 93976; 96372; 99283; J1885

== ENCOUNTER → 2024-09-24 | Outpatient (REF) | payer OTHER ==
[2024-09-24 17:02] LABS: KETONE, URINE AUTO RFX NEGATIVE (NEGATIVE); NITRITE, URINE AUTO RFX NEGATIVE (NEGATIVE); RBC, URINE AUTO RFX TNTC /HPF (0-3); SQUAM EPITHELIAL CELL UR AURFX 3 /HPF (0-6); WBC, URINE AUTO RFX 0 /HPF (0-3)
[2024-09-24 17:05] LABS: LEUKOCYTE ESTERASE UR AUTO RFX TRACE (NEGATIVE)
== END ==
LOC: M LAB REF 16:30
PROVIDERS: ATTEND Family Medicine Addiction Medicine
DX: R30.0 Dysuria (principal)